=== PATIENT | female | born 1950 | race Caucasian/White ===

== ENCOUNTER 2017-09-16 21:07 | Emergency (ER) | payer MEDICARE, MEDICAID ==
[~2017-09-16] VITALS: Ht 157.5 cm; Wt 85.0 kg
[~2017-09-16 21:07] MED LIST: CLON0.1T PO; FURO20TA PO; LEVE500T8 PO; LIDO1PAD52 TOPICAL; OMEP20TA PO; POTA-163 PO; REME45TA PO; SERO200T PO; XARE20TA PO; ZOLO100T PO
[2017-09-16 21:13] VITALS: BP 130/95; PULSE 74; RESP 18; TEMP 98.2; O2SAT 95
[2017-09-16] MEDS ORDERED: MORPHINE SULFATE 4 MG/ML INJ IV PUSH ONE (21:15)
[2017-09-16] MEDS ORDERED: ONDANSETRON HCL 4 MG/2 ML VIAL IV PUSH ONE (21:15)
[2017-09-16] MEDS ORDERED: SODIUM CHLORIDE 0.9% FLUSH 10 ML FLUSH IV FLUSH PRN (21:15)
--- NOTE | 2017-09-16 21:24 | PD ---
HPI Chief Complaint: Fall Time Seen by Provider: 21:12 Travel History International Travel<30 days: No Contact w/Intl Traveler<30days: No Traveled to known affect area: No History of Present Illness HPI 67-year-old female with right AKA, brought in by EMS from home for evaluation of right arm pain and right leg pain after falling out of her wheelchair. The patient reports that she fell forward, landing onto the stump of her right as well as on an outstretched arm. She reports that she hit her head but did not lose consciousness. She was able to crawl to a phone and states she was on the floor for approximately 15 minutes. She is complaining of severe pain to her entire right upper extremity as well as right leg. She denies head neck or back pain. Pain is severe, constant, worse with movement and palpation. She is on Eliquis for protein S deficiency. 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) Cancer: Yes (minor resection ) Cardiac Catheterization: Yes (X2) Cardiovascular Problems: Yes High Cholesterol: Yes Chemotherapy: Yes Chest Pain: Yes Congestive Heart Failure: Yes COPD: Yes Cerebrovascular Accident: Yes (X 4) Coronary Artery Disease: Yes Diabetes: No Diminished Hearing: No Deep Vein Thrombosis: Yes (PE's, DVT- bilat legs and right arm) Endocrine: Yes Gastrointestinal Disorders: Yes (GASTROPARESIS) GERD: Yes Gout: Yes Genitourinary: No Headaches: No Hiatal Hernia: No Hypertension: Yes Immune Disorder: No Implanted Vascular Access Dvce: Yes (HX OF PORT) Kidney Stones: No Musculoskeletal: Yes (arthritis) Neurologic: Yes (4 CVA's and seizure) Psychiatric: Yes Reproductive: No Respiratory: Yes Integumentary: Yes (MRSA IN G TUBE) Immunizations Current: No Migraines: Yes Pancreatitis: Yes Radiation Therapy: No Renal Failure: No Seizures: No Sleep Apnea: No Thyroid Disease: Yes (hypo) Ulcer: Yes Tetanus Vaccination: > 5 Years Influenza Vaccination: No PNEUMOCCOCAL Vaccine (Year): 2008 ?: Not Menopausal: Yes : 6 Para: 3 Miscarriage: 3 Ovarian Cysts: Yes Past Surgical History Abdominal Surgery: Yes (COLON RESECTION, CHOLECYSTECTOMY, G TUBE PLACEMENT) AICD: No Appendectomy: Yes Arteriovenous Shunt: No Body Medical Devices: total knee replacement Cardiac Surgery: Yes Section: Yes (1) Cholecystectomy: Yes Coronary Stent: Yes Endocrine Surgery: No Eye Surgery: No Gynecologic Surgery: Yes () Hysterectomy: Yes Insulin Pump: No Joint Replacement: Yes (R ANKLE HARDWARE, R TOTAL KNEE May,) Neurologic Surgery: No Oral Surgery: Yes Pacemaker: No Thoracic Surgery: Yes Tonsillectomy: Yes (AND ADENOIDS) Other Surgery: Yes (IVC filter placement) Family History Family Myocardial Infarction: Yes Family Hypercholesterolemia: Yes Social History Alcohol Use: No Tobacco Use: No Substance Use: No Allergies-Medications (Allergen,Severity, Reaction): Coded Allergies: adhesive (Unverified Allergy, Severe, BLISTER, 09/16/17) amlodipine (Unverified Allergy, Severe, "EKG CHANGES", 09/16/17) amylase (Unverified Allergy, Severe, RASH/SHOB, 09/16/17) atorvastatin (Unverified Allergy, Severe, "STATIN DRUGS"-RHABDOMYLIASIS, 09/16/17) codeine (Unverified Allergy, Severe, RASH, 09/16/17) diatrizoate meglumine (Unverified Allergy, Severe, PT CODED, 09/16/17) diltiazem (Unverified Allergy, Severe, "EKG CHANGES", 09/16/17) enalaprilat (Unverified Allergy, Severe, 09/16/17) erythromycin base (Unverified Allergy, Severe, SVT, ARRHYTHMIAS, 09/16/17) gadobenic acid (Unverified Allergy, Severe, PT CODED, 09/16/17) gadodiamide (Unverified Allergy, Severe, PT CODED, 09/16/17) gadoteridol (Unverified Allergy, Severe, PT CODED, 09/16/17) iodine (Unverified Allergy, Severe, Anaphylaxis, 09/16/17) iodixanol (Unverified Allergy, Severe, PT CODED, 09/16/17) iohexol (Unverified Allergy, Severe, PT CODED, 09/16/17) isradipine (Unverified Allergy, Severe, "EKG CHANGES", 09/16/17) lipase (Unverified Allergy, Severe, RASH/SHOB, 09/16/17) metoclopramide (Unverified Allergy, Severe, TREMORS, 09/16/17) nalbuphine (Unverified Allergy, Severe, TREMORS, 09/16/17) nicardipine (Unverified Allergy, Severe, "EKG CHANGES", 09/16/17) nifedipine (Unverified Allergy, Severe, "EKG CHANGES", 09/16/17) nimodipine (Unverified Allergy, Severe, 09/16/17) potassium iodide (Unverified Allergy, Severe, Anaphylaxis, 09/16/17) povidone-iodine (Unverified Allergy, Severe, Anaphylaxis, 09/16/17) prochlorperazine (Unverified Allergy, Severe, SHAKES, 09/16/17) promethazine (Unverified Allergy, Severe, 09/16/17) PER PATIENT protease (Unverified Allergy, Severe, RASH/SHOB, 09/16/17) sodium iodide (Unverified Allergy, Severe, Anaphylaxis, 09/16/17) sodium iodide (Unverified Allergy, Severe, Anaphylaxis, 09/16/17) verapamil (Unverified Allergy, Severe, "EKG CHANGES", 09/16/17) *MDRO Multi-Drug Resistant Organism (Verified Adverse Reaction, Unknown, 09/16/17) MRSA (wound) - 04/07/06, 09/24/08, 01/05/12 MRSA PCR (nares) POSITIVE - 07/28/16 Uncoded Allergies: LICORICE (Allergy, Severe, Anaphylaxis, 12/13/11) PER PATIENT NUTRASWEET (Adverse Reaction, Severe, HEADACHES, 08/28/10) Reported Meds & Prescriptions Reported Meds & Active Scripts Active Zoloft (Sertraline HCl) 100 Mg Tab 100 Mg PO DAILY Remeron (Mirtazapine) 45 Mg Tab 45 Mg PO HS Seroquel (Quetiapine Fumarate) 200 Mg Tab 200 Mg PO HS Reported Xarelto (Rivaroxaban) 20 Mg Tab 20 Mg PO DAILY Potassium Chloride ER (Potassium Chloride) 20 Meq Tab 20 Meq PO DAILY Omeprazole 20 Mg Tab 20 Mg PO DAILY Lidocaine Patch 12 HR (Lidocaine) 5 % Patch 1 Patch TOPICAL DAILY PRN 30 Days Remove patch after 12 hours Levetiracetam 500 Mg Tab 500 Mg PO 3TABS BID Furosemide 20 Mg Tab 20 Mg PO DAILY Clonidine (Clonidine HCl) 0.1 Mg Tab 0.1 Mg PO DAILY PRN Review of Systems Except as stated in HPI: all other systems reviewed are Neg Physical Exam Narrative GENERAL: Well-developed, well-nourished, awake, mild to moderate distress secondary to pain SKIN: Focused skin assessment warm/dry. Ecchymosis to right leg stump, and various areas of ecchymosis to right upper extremity. HEAD: Atraumatic. Normocephalic. EYES: Pupils equal and round. No scleral icterus. No injection or drainage. ENT: Mucous membranes pink and moist. NECK: Trachea midline. No JVD. CARDIOVASCULAR: Regular rate and rhythm. No murmur appreciated. Bilateral distal radial pulses are brisk and equal. Normal capillary refill in upper and lower extremities. RESPIRATORY: No accessory muscle use. Clear to auscultation. Breath sounds equal bilaterally. GASTROINTESTINAL: Abdomen soft, non-tender, nondistended. MUSCULOSKELETAL: Obvious deformity to right distal radius with diffuse pain throughout the right arm. There are no other deformities. Limited range of motion in right wrist and upper extremity secondary to pain. All compartments in right upper extremity are supple. Bilateral clavicles are without step-off and without tenderness. NEUROLOGICAL: Awake and alert. No obvious cranial nerve deficits. Motor grossly within normal limits. Normal speech. Normal sensation and right upper extremity. PSYCHIATRIC: Appropriate mood and affect; insight and judgment normal. Data Data Last Documented VS Vital Signs Date Time Temp Pulse Resp B/P (MAP) Pulse Ox O2 Delivery O2 Flow Rate FiO2 09/16/17 21:15 95 Room Air 09/16/17 21:13 98.2 74 18 130/95 (107) Orders Orders Complete Blood Count With Diff (09/16/17 21:15) Comprehensive Metabolic Panel (09/16/17 21:15) Prothrombin Time / Inr (Pt) (09/16/17 21:15) Act Partial Throm Time (Ptt) (09/16/17 21:15) Iv Access Insert/Monitor (09/16/17 21:15) Ecg Monitoring (09/16/17 21:15) Oximetry (09/16/17 21:15) Sodium Chloride 0.9% Flush (Ns Flush) (09/16/17 21:15) Ct Brain W/O Iv Contrast(Rout) (09/16/17 ) Ct Cerv Spine W/O Contrast (09/16/17 ) Humerus (Min 2vws) (09/16/17 ) Forearm (2vws) (09/16/17 ) Hand, Complete ([id number]) (09/16/17 ) Femur (Ap & Lat/2vws) (09/16/17 ) Morphine Inj (Morphine Inj) (09/16/17 21:15) Ondansetron Inj (Zofran Inj) (09/16/17 21:15) Hydromorphone Pf Inj (Dilaudid Pf Inj) (09/16/17 23:00) Shoulder, Complete (>2vws) (09/16/17 ) Elbow, Complete (4 Vws) (09/16/17 ) Labs Laboratory Tests Test 09/16/17 22:20 White Blood Count 6.7 TH/MM3 Red Blood Count 4.36 MIL/MM3 Hemoglobin 12.7 GM/DL Hematocrit 38.6 % Mean Corpuscular Volume 88.5 FL Mean Corpuscular Hemoglobin 29.2 PG Mean Corpuscular Hemoglobin Concent 33.0 % Red Cell Distribution Width 15.0 % Platelet Count 231 TH/MM3 Mean Platelet Volume 8.2 FL Neutrophils (%) (Auto) 44.7 % Lymphocytes (%) (Auto) 38.3 % Monocytes (%) (Auto) 12.3 % Eosinophils (%) (Auto) 4.1 % Basophils (%) (Auto) 0.6 % Neutrophils # (Auto) 3.0 TH/MM3 Lymphocytes # (Auto) 2.6 TH/MM3 Monocytes # (Auto) 0.8 TH/MM3 Eosinophils # (Auto) 0.3 TH/MM3 Basophils # (Auto) 0.0 TH/MM3 CBC Comment DIFF FINAL Differential Comment Prothrombin Time 10.8 SEC Prothromb Time International Ratio 1.0 RATIO Activated Partial Thromboplast Time 27.0 SEC Blood Urea Nitrogen 6 MG/DL Creatinine 0.71 MG/DL Random Glucose 100 MG/DL Total Protein 6.9 GM/DL Albumin 3.5 GM/DL Calcium Level 8.8 MG/DL Alkaline Phosphatase 73 U/L Aspartate Amino Transf (AST/SGOT) 12 U/L Alanine Aminotransferase (ALT/SGPT) 15 U/L Total Bilirubin 0.2 MG/DL Sodium Level 141 MEQ/L Potassium Level 3.3 MEQ/L Chloride Level 106 MEQ/L Carbon Dioxide Level 24.0 MEQ/L Anion Gap 11 MEQ/L Estimat Glomerular Filtration Rate 82 ML/MIN MDM Medical Decision Making Medical Screen Exam Complete: Yes Emergency Medical Condition: Yes Differential Diagnosis Right wrist fracture, humeral fracture, intracranial trauma, cervical spine injury, right femur contusion versus fracture Narrative Course Vital signs show heart rate 74, blood pressure 130/95, pulse ox 95% on room air , oral temp of 98.2F. CBC is essentially unremarkable. CMP Coags are normal. Right femur x-ray: Amputation of distal right femur with mild periosteal reaction. No air in the soft tissue. No destructive abnormality. Right humerus x-ray: Normal exam for patient of this age. Right forearm x-ray: Normal exam for patient of this age. Right hand x-ray: Normal exam for patient of this age. CT head: Remote small infarct in the left parietal lobe. No acute findings. CT cervical spine: Mild degenerative anterolisthesis at C3 to C5. No acute fracture. No significant bony canal stenosis. The patient was made aware of all findings. She is still complaining of pain to her right arm. She points to her right proximal humerus were majority of her pain is. Her right forearm, wrist, and hand are nontender and she has normal range of motion in these areas. All compartments in her right upper extremity are supple, and the right upper extremity is neurovascularly intact. Bilateral clavicles are nontender without step-off. Right elbow x-ray: No acute fracture. Right shoulder x-ray: Degenerative change without fracture. The patient was made aware of all findings. She continues to complain of pain. She requests that I speak to her primary care physician Dr. Flores to try to have her admitted even though asked point to her that there is no indication for admission at this time. I spoke with Dr. Flores who believes that the patient may be on too many narcotics from pain management and that is why she falls at home. He would be happy to follow-up with her in the office, however there is no indication for admission at this time. I explained this to the patient and she tells me that she is no longer on any narcotic pain medications and only takes ibuprofen and Tylenol. Patient was made aware of all findings. She will be discharged home. She was informed on when to return to the emergency department. She is requesting a right arm sling. I told her she must take her arm out of the sling every couple of hours and fully range the arm to prevent a frozen shoulder. She verbalizes understanding and agreement with plan. Diagnosis Primary Impression: Fall Qualified Codes: W19.XXXA - Unspecified fall, initial encounter Additional Impression: Contusion of right arm Qualified Codes: S40.021A - Contusion of right upper arm, initial encounter Referrals: Primary Care Physician 3 days Additional Instructions: Follow-up with your primary care physician this week. Return to the emergency department for worsening symptoms or any other concerns. Scripts Oxycodone-Acetaminophen (Percocet) 5-325 mg Tab 1 TAB PO Q6H Y for PAIN, #6 TAB 0 Refills Prov: Bud Elliott MD 09/17/17 Disposition: 01 DISCHARGE HOME Condition: Stable Bud Elliott MD Sep 16, 2017 21:24
--- NOTE | 2017-09-16 22:03 | RADRPT ---
EXAM DATE/TIME: 09/16/2017 21:37 [facility] COMPARISON: No previous studies available for comparison. INDICATIONS : Right distal femur pain, fell MEDICAL HISTORY : Cerebrovascular disease. Hypertension SURGICAL HISTORY : Above the knee amputation ENCOUNTER: Initial ACUITY: 1 day PAIN SCORE: 3/10 LOCATION: Right Femur FINDINGS: There is previous amputation of the distal thigh. Bones are osteopenic. Mild periosteal reaction dist al femur. No aggressive bone destruction identified. CONCLUSION: 1. Amputation of distal right femur with mild periosteal reaction. No air in the soft tissues. Petros Bergman MD on September 16, 2017 at 21:59 Board Certified Radiologist. This report was verified electronically.
--- NOTE | 2017-09-16 22:07 | RADRPT ---
EXAM DATE/TIME: 09/16/2017 21:40 [facility] COMPARISON: No previous studies available for comparison. INDICATIONS : Right distal humerus pain, fell MEDICAL HISTORY : Cerebrovascular disease. Hypertension SURGICAL HISTORY : None. ENCOUNTER: Initial ACUITY: 1 day PAIN SCORE: 10/10 LOCATION: Right Humerus FINDINGS: Two view examination of the right humerus demonstrates no evidence of fracture or dislocation. Bony mineralization is normal. The soft tissue structures are intact. CONCLUSION: Normal examination for a patient of this age. Petros Bergman MD on September 16, 2017 at 22:02 Board Certified Radiologist. This report was verified electronically.
--- NOTE | 2017-09-16 22:09 | RADRPT ---
EXAM DATE/TIME: 09/16/2017 21:41 [facility] COMPARISON: No previous studies available for comparison. INDICATIONS : Right proximal forearm pain, fell MEDICAL HISTORY : Cerebrovascular disease. Hypertension SURGICAL HISTORY : None. ENCOUNTER: Initial ACUITY: 1 day PAIN SCORE: 10/10 LOCATION: Right forearm FINDINGS: Two view examination of the right forearm demonstrates no evidence of fracture or dislocation. Bony mineralization is normal. The soft tissue structures are intact. CONCLUSION: Normal examination for a patient of this age. Petros Bergman MD on September 16, 2017 at 22:06 Board Certified Radiologist. This report was verified electronically.
--- NOTE | 2017-09-16 22:12 | RADRPT ---
EXAM DATE/TIME: 09/16/2017 21:42 [facility] COMPARISON: No previous studies available for comparison. INDICATIONS : Evaluate right hand for trauma, fell MEDICAL HISTORY : Cerebrovascular disease. Hypertension SURGICAL HISTORY : None. ENCOUNTER: Initial ACUITY: 1 day PAIN SCORE: 0/10 LOCATION: Right Hand FINDINGS: Three view examination of the right hand demonstrates no soft tissue swelling, dislocation, or fractu re. The carpal bones appear intact. The interphalangeal and metacarpophalangeal joints are intact. Bony mineralization is normal. CONCLUSION: Normal examination for a patient of this age. Petros Bergman MD on September 16, 2017 at 22:07 Board Certified Radiologist. This report was verified electronically.
--- NOTE | 2017-09-16 22:30 | RADRPT ---
EXAM DATE/TIME: 09/16/2017 21:48 [facility] COMPARISON: CT BRAIN W/O CONTRAST, July 26, 2016, 18:02. INDICATIONS : Trauma, fall. RADIATION DOSE: 56.35 CTDIvol (mGy) MEDICAL HISTORY : Cardiovascular disease. Chronic obstructive pulmonary disease. Gastroparesis.Hypertension. Congestive heart failure. CVA. Pancreatitis. SURGICAL HISTORY : Cholecystectomy. Appendectomy.Colon resection.Hysterectomy. IVC filter. ENCOUNTER: Initial ACUITY: 1 day PAIN SCALE: 2/10 LOCATION: cranial TECHNIQUE: Multiple contiguous axial images were obtained of the head. Using automated exposure control and adj ustment of the mA and/or kV according to patient size, radiation dose was kept as low as reasonably a chievable to obtain optimal diagnostic quality images. DICOM format image data is available electro nically for review and comparison. FINDINGS: There is a remote infarct in the medial left parietal lobe.. No hydrocephalus. No abnormal extra-axia l fluid. Paranasal sinuses are clear. No recent infarct. CONCLUSION: 1. Remote small infarct left parietal lobe. No acute findings. Petros Bergman MD on September 16, 2017 at 22:22 Board Certified Radiologist. This report was verified electronically.
[2017-09-16 22:32] LABS: BASOPHIL % 0.6 % (0.0-2.0); EOSINOPHIL # 0.3 TH/MM3 (0-0.4); EOSINOPHIL % 4.1 % (0.0-4.0); HEMATOCRIT 38.6 % (35.0-46.0); HEMO FLAGS DIFF FINAL; LYMPH % 38.3 % (9.0-44.0); LYMPHOCYTE # 2.6 TH/MM3 (1.0-4.8); MEAN CELL VOLUME 88.5 FL (80.0-100.0); MEAN CORPUSCULAR HEMOGLOBIN 29.2 PG (27.0-34.0); MONO % 12.3 % (0.0-8.0); NEUT % 44.7 % (16.0-70.0); PLATELET COUNT 231 TH/MM3 (150-450); RED BLOOD COUNT 4.36 MIL/MM3 (4.00-5.30); WHITE BLOOD COUNT 6.7 TH/MM3 (4.0-11.0)
--- NOTE | 2017-09-16 22:44 | RADRPT ---
EXAM DATE/TIME: 09/16/2017 21:48 [facility] COMPARISON: No previous studies available for comparison. INDICATIONS : Trauma, fall. RADIATION DOSE: 41.29 CTDIvol (mGy) MEDICAL HISTORY : Cardiovascular disease. Pancreatitis. Chronic obstructive pulmonary disease.CVA. DVT. Hyperstension. SURGICAL HISTORY : Colon resection. Cholecystectomy.Appendectomy.Hysterectomy. IVC filter. ENCOUNTER: Initial ACUITY: 1 day PAIN SCALE: 3/10 LOCATION: Right neck TECHNIQUE: Volumetric scanning of the cervical spine was performed. Multiplanar reconstructions in the sagittal, coronal and oblique axial planes were performed. Using automated exposure control and adjustment o f the mA and/or kV according to patient size, radiation dose was kept as low as reasonably achievable to obtain optimal diagnostic quality images. DICOM format image data is available electronically f or review and comparison. FINDINGS: At C3-4 and C4-5 there is a mild grade 1 anterolisthesis. Facet arthropathy present. No acute fractur e. No significant bony canal stenosis. No prevertebral soft tissue swelling. CONCLUSION: 1. Mild degenerative anterolisthesis at C3-5. No acute fracture. No significant bony canal stenosis. Petros Bergman MD on September 16, 2017 at 22:38 Board Certified Radiologist. This report was verified electronically.
[2017-09-16 22:45] LABS: PROTHROMBIN TIME - PATIENT 10.8 SEC (9.8-11.6)
[2017-09-16 22:58] LABS: ALT (GPT) 15 U/L (10-53); ANION GAP 11 MEQ/L (5-15); AST (GOT) 12 U/L (15-37); BLOOD UREA NITROGEN 6 MG/DL (7-18); CHLORIDE 106 MEQ/L (98-107); GLOMERULAR FILTRATION RATE 82 ML/MIN (>89); POTASSIUM 3.3 MEQ/L (3.5-5.1); SODIUM (NA) 141 MEQ/L (136-145)
[2017-09-16] MEDS ORDERED: HYDROmorphone HCL PF 1 MG/ML VIAL IV PUSH ONE (23:00)
[2017-09-16 23:01] LABS: ALKALINE PHOSPHATASE 73 U/L (45-117); TOTAL BILIRUBIN ADULT 0.2 MG/DL (0.2-1.0)
--- NOTE | 2017-09-16 23:35 | RADRPT ---
EXAM DATE/TIME: 09/16/2017 23:20 [facility] COMPARISON: No previous studies available for comparison. INDICATIONS : Pt fell earlier tonight- Pain to right upper arm. MEDICAL HISTORY : Cerebrovascular disease. Hypertension SURGICAL HISTORY : None. ENCOUNTER: Subsequent ACUITY: 1 day PAIN SCORE: 6/10 LOCATION: Right Elbow FINDINGS: Multiple view examination of the right elbow demonstrates no soft tissue swelling, joint effusion, or fracture. The osseous structures are in normal alignment. Bony mineralization is normal. CONCLUSION: No acute fracture. Tashi Murdock MD on September 16, 2017 at 23:33 Board Certified Radiologist. This report was verified electronically.
--- NOTE | 2017-09-16 23:35 | RADRPT ---
EXAM DATE/TIME: 09/16/2017 23:16 [facility] COMPARISON: No previous studies available for comparison. INDICATIONS : Pt fell earlier tonight- Pain to right upper arm. MEDICAL HISTORY : Cerebrovascular disease. Hypertension SURGICAL HISTORY : None. ENCOUNTER: Subsequent ACUITY: 1 day PAIN SCORE: 6/10 LOCATION: Right Shoulder FINDINGS: Multiple view examination of the right shoulder demonstrates no evidence of fracture or dislocation. Degenerative changes.. Bony mineralization is normal. CONCLUSION: 1. Degenerative changes without fracture. Tashi Murdock MD on September 16, 2017 at 23:32 Board Certified Radiologist. This report was verified electronically.
[2017-09-17] MEDS ORDERED: PERC5TAB12 PO (00:13)
[2017-09-17 01:14] VITALS: BP 138/95; PULSE 79; RESP 18; O2SAT 96
[2017-09-17] MEDS ORDERED: IBUPROFEN 800 MG TAB PO ONE ×2 (03:30→08:00)
[2017-09-17] MEDS ORDERED: oxyCODONE/ACETAMINOPHEN 5 MG/325 MG TAB PO ONE (05:00)
[2017-09-17 07:45] VITALS: BP 143/69; PULSE 61; RESP 16; O2SAT 95
== END 2017-09-17 11:03 | disposition home or self-care (01) ==
LOC: NEPE 21:07 → NEPD 09-17 11:03
DX: S40.021A Contusion of right upper arm, initial encounter (principal); M79.604 Pain in right leg; D68.59 Other primary thrombophilia; D64.9 Anemia, unspecified; I11.0 Hypertensive heart disease with heart failure; I50.9 Heart failure, unspecified; J44.9 Chronic obstructive pulmonary disease, unspecified; W19.XXXA Unspecified fall, initial encounter; Z89.611 Acquired absence of right leg above knee
CPT/HCPCS: 70450; 72125; 73030; 73060; 73080; 73090; 73130; 73552; 80053; 85025; 85610; 85730; 96374; 96375; 99285; J1170; J2270; J2405

== ENCOUNTER 2017-12-20 20:03 | Emergency (ER) | payer MEDICARE, MEDICAID ==
[~2017-12-20 20:03] MED LIST changes: +CYAN50LO; +GABA100C4 PO; +LEVE250 PO; +LEVO25TA4 PO; +METO1TAB42 PO; -OMEP20TA PO; +OMEP20TA93 PO; +PERC5TAB12 PO; +PRED10 PO; +PROT40TA PO; +SERO100T PO; +TRAZ100T10 PO; +VITA1000 PO; +VITA1CAP7; +VITA250C3 CHEW; +ZOLO50TA PO
[2017-12-20 20:29] VITALS: BP 171/77; PULSE 76; RESP 16; TEMP 99.2; O2SAT 97
[2017-12-20] MEDS ORDERED: PHEN100C PO (20:47)
[2017-12-20] MEDS ORDERED: IBUP200T47 PO (20:47)
[2017-12-20] MEDS ORDERED: APIX2.5T PO (20:52)
[2017-12-20] MEDS ORDERED: CLON0.1T PO (20:52)
[2017-12-20] MEDS ORDERED: METO25TA3 PO (20:52)
[2017-12-20] MEDS ORDERED: OXCA300T PO (20:52)
[2017-12-20] MEDS ORDERED: ZOFR4TAB3 SL (20:52)
[2017-12-20] MEDS ORDERED: LISI-515 PO (20:52)
[2017-12-20] MEDS ORDERED: ASCO500T PO (20:57)
[2017-12-20] MEDS ORDERED: TYLE325T PO (20:57)
[2017-12-20] MEDS ORDERED: GABA600T PO (20:57)
[2017-12-20] MEDS ORDERED: FERR325T18 PO (20:57)
[2017-12-20] MEDS ORDERED: DICL1GEL7 TOPICAL (20:57)
[2017-12-20] MEDS ORDERED: LIDO5%T TOPICAL (20:59)
[2017-12-20] MEDS ORDERED: LEVO25TA4 PO (20:59)
[2017-12-20] MEDS ORDERED: PROT40TA PO (21:15)
[2017-12-20] MEDS ORDERED: POLY17S PO (21:15)
[2017-12-20] MEDS ORDERED: MILKSUS PO (21:15)
[2017-12-20] MEDS ORDERED: MELA5 PO (21:15)
[2017-12-20] MEDS ORDERED: ONDANSETRON HCL 4 MG/2 ML VIAL IV PUSH ONE (22:30)
[2017-12-20] MEDS ORDERED: SODIUM CHLORIDE 0.9% FLUSH 10 ML FLUSH IV FLUSH PRN (22:30)
[2017-12-20] MEDS ORDERED: MORPHINE SULFATE 4 MG/ML INJ IV PUSH ONE (22:30)
[2017-12-20 23:03] LABS: AUTOMATED NEUTROPHIL # 7.9 TH/MM3 (1.8-7.7); BASOPHIL # 0.1 TH/MM3 (0-0.2); BASOPHIL % 0.6 % (0.0-2.0); EOSINOPHIL # 0.1 TH/MM3 (0-0.4); EOSINOPHIL % 0.5 % (0.0-4.0); HEMATOCRIT 42.1 % (35.0-46.0); HEMOGLOBIN 14.4 GM/DL (11.6-15.3); LYMPH % 20.2 % (9.0-44.0); LYMPHOCYTE # 2.2 TH/MM3 (1.0-4.8); MEAN CELL VOLUME 85.3 FL (80.0-100.0); MEAN CORPUSCULAR HEMOGLOBIN 29.1 PG (27.0-34.0); MEAN CORPUSCULAR HGB CONC 34.1 % (32.0-36.0); MEAN PLATELET VOLUME 7.6 FL (7.0-11.0); MONO % 6.3 % (0.0-8.0); MONOCYTE # 0.7 TH/MM3 (0-0.9); NEUT % 72.4 % (16.0-70.0); PLATELET COUNT 355 TH/MM3 (150-450); RED BLOOD COUNT 4.93 MIL/MM3 (4.00-5.30); RED CELL DISTRIBUTION WIDTH 13.5 % (11.6-17.2); WHITE BLOOD COUNT 10.9 TH/MM3 (4.0-11.0)
[2017-12-20 23:05] VITALS: BP 180/90; PULSE 88; RESP 18; TEMP 97.8; O2SAT 97
[2017-12-20 23:14] LABS: PROTHROMBIN TIME - PATIENT 10.3 SEC (9.8-11.6)
[2017-12-20 23:21] LABS: ALT (GPT) 16 U/L (10-53); AST (GOT) 26 U/L (15-37); BICARBONATE 24.4 MEQ/L (21.0-32.0); BLOOD UREA NITROGEN 8 MG/DL (7-18); CALCIUM 8.9 MG/DL (8.5-10.1); CHLORIDE 97 MEQ/L (98-107); CREATININE 0.81 MG/DL (0.50-1.00); GLOMERULAR FILTRATION RATE 71 ML/MIN (>89); GLUCOSE,RANDOM 101 MG/DL (74-106); LIPASE 198 U/L (73-393); SODIUM (NA) 129 MEQ/L (136-145)
[2017-12-20 23:22] LABS: ALKALINE PHOSPHATASE 113 U/L (45-117); TOTAL BILIRUBIN ADULT 0.5 MG/DL (0.2-1.0); TOTAL PROTEIN 8.4 GM/DL (6.4-8.2)
--- NOTE | 2017-12-20 23:51 | RADRPT ---
EXAM DATE/TIME: 12/20/2017 23:29 [facility] COMPARISON: No previous studies available for comparison. INDICATIONS : Abdominal pain with nausea. ORAL CONTRAST: No oral contrast ingested. RADIATION DOSE: 7.97 CTDIvol (mGy) MEDICAL HISTORY : Hypertension. Pancreatitis. Gastroesophageal reflux disease. SURGICAL HISTORY : Appendectomy. Cholecystectomy.Hysterectomy.Colon resection. ENCOUNTER: Initial ACUITY: 1 day PAIN SCALE: 5/10 LOCATION: abdomen TECHNIQUE: Volumetric scanning of the abdomen and pelvis was performed. Using automated exposure control and ad justment of the mA and/or kV according to patient size, radiation dose was kept as low as reasonably achievable to obtain optimal diagnostic quality images. DICOM format image data is available electro nically for review and comparison. FINDINGS: LOWER CHEST: The visualized lower lungs are clear. Coronary artery calcifications are seen. There is elevation of the right hemidiaphragm. LIVER: Homogeneous density without lesion. There is no dilation of the biliary tree. The patient is status post cholecystectomy. SPLEEN: Normal size without lesion. PANCREAS: Within normal limits. KIDNEYS: Normal in size and shape. There is no mass, stone, or hydronephrosis. ADRENAL GLANDS: Within normal limits. VASCULAR: There is no aortic aneurysm. There is an IVC filter in place. The left external iliac vein appears ob literated. There are superficial venous collaterals seen at the left abdomen and pelvis. BOWEL/MESENTERY: The stomach, small bowel, and colon demonstrate no acute abnormality. There is no free intraperitone al air or fluid. ABDOMINAL WALL: Within normal limits. RETROPERITONEUM: There is no lymphadenopathy. BLADDER: No wall thickening or mass. REPRODUCTIVE: The patient is status post hysterectomy. INGUINAL: There is no lymphadenopathy or hernia. MUSCULOSKELETAL: There is degenerative change in the lower lumbar spine. There are calcifications seen in the gluteal regions. CONCLUSION: No acute abnormality seen. The cause of the patient's symptoms is not seen. Cosmo Edwards MD on December 20, 2017 at 23:42 Board Certified Radiologist. This report was verified electronically.
[2017-12-21] MEDS ORDERED: SODIUM CHLOR 0.9% 1000 ML INJ 1,000 ML IV ONE ×2 (00:30→02:00)
[2017-12-21 01:06] VITALS: BP 155/73; PULSE 74; RESP 20; O2SAT 98
[2017-12-21] MEDS ORDERED: PANTOPRAZOLE SODIUM 40 MG VIAL IV PUSH ONE (02:00)
[2017-12-21] MEDS ORDERED: ONDANSETRON HCL 4 MG/2 ML VIAL IV PUSH ONE ×2 (02:00→07:30)
[2017-12-21] MEDS ORDERED: MORPHINE SULFATE 2 MG/ML INJ IV PUSH ONE ×2 (02:00→07:30)
[2017-12-21] MEDS ORDERED: levETIRAcetam 500 MG TAB PO ONE (04:00)
[2017-12-21] MEDS ORDERED: PHENYTOIN SODIUM 100 MG CAP PO ONE (04:00)
[2017-12-21 05:06] VITALS: BP 155/74; PULSE 78; RESP 20; O2SAT 97
--- NOTE | 2017-12-21 06:40 | PD ---
HPI . GI complaint Chief Complaint: GI Complaint Time Seen by Provider: 22:18 Travel History International Travel<30 days: No Contact w/Intl Traveler<30days: No Traveled to known affect area: No History of Present Illness HPI 67-year-old female very poor strength is complains of diffuse abdominal pain. He cannot characterize further. Patient has nausea and intermittent vomiting, no coffee-ground emesis by history. PFSH Past Medical History Narrative Medical Past medical history reviewed Hx Anticoagulant Therapy: Yes (XARELTO-OUT X 10 DAYS) Anemia: Yes Arthritis: Yes Asthma: Yes Autoimmune Disease: No Blood Disorders: No Anxiety: Yes Depression: Yes Heart Rhythm Problems: Yes (SVT ) Cancer: Yes Cardiac Catheterization: Yes (X2) Cardiovascular Problems: Yes High Cholesterol: Yes Chemotherapy: Yes Chest Pain: Yes Congestive Heart Failure: Yes COPD: Yes Cerebrovascular Accident: Yes (X 4) Coronary Artery Disease: Yes Diabetes: No Diminished Hearing: No Deep Vein Thrombosis: Yes (PE, DVT) Endocrine: Yes Gastrointestinal Disorders: Yes (GASTROPARESIS) GERD: Yes Gout: Yes Genitourinary: No Headaches: No Hiatal Hernia: No Hypertension: Yes Immune Disorder: No Implanted Vascular Access Dvce: Yes (HX OF PORT) Kidney Stones: No Musculoskeletal: Yes (arthritis) Neurologic: Yes (4 CVA's and seizure) Psychiatric: Yes Reproductive: No Respiratory: Yes Integumentary: Yes (MRSA IN G TUBE) Immunizations Current: No Migraines: Yes Pancreatitis: Yes Radiation Therapy: No Renal Failure: No Seizures: No Sleep Apnea: No Thyroid Disease: Yes (HYPO) Ulcer: Yes PNEUMOCCOCAL Vaccine (Year): 2008 ?: Not Menopausal: Yes : 6 Para: 3 Miscarriage: 3 Ovarian Cysts: Yes Past Surgical History Abdominal Surgery: Yes (COLON RESECTION, G TUBE PLACEMENT) AICD: No Appendectomy: Yes Arteriovenous Shunt: No Body Medical Devices: total knee replacement Cardiac Surgery: Yes Section: Yes (1) Cholecystectomy: Yes Coronary Stent: Yes Endocrine Surgery: No Eye Surgery: No Gynecologic Surgery: Yes () Hysterectomy: Yes Insulin Pump: No Joint Replacement: Yes (R ANKLE, R TOTAL KNEE May,) Neurologic Surgery: No Oral Surgery: Yes Pacemaker: No Thoracic Surgery: Yes Tonsillectomy: Yes (T&A) Other Surgery: Yes (IVC filter ) Family History Family Hypercholesterolemia: Yes Social History Alcohol Use: No Tobacco Use: No Substance Use: No Allergies-Medications (Allergen,Severity, Reaction): Coded Allergies: adhesive (Unverified Allergy, Severe, BLISTER, 12/20/17) amlodipine (Unverified Allergy, Severe, "EKG CHANGES", 12/20/17) amylase (Unverified Allergy, Severe, RASH/SHOB, 12/20/17) atorvastatin (Unverified Allergy, Severe, "STATIN DRUGS"-RHABDOMYLIASIS, ) codeine (Unverified Allergy, Severe, RASH, 12/20/17) diatrizoate meglumine (Unverified Allergy, Severe, PT CODED, 12/20/17) diltiazem (Unverified Allergy, Severe, "EKG CHANGES", 12/20/17) enalaprilat (Unverified Allergy, Severe, 12/20/17) erythromycin base (Unverified Allergy, Severe, SVT, ARRHYTHMIAS, 12/20/17) gadobenic acid (Unverified Allergy, Severe, PT CODED, 12/20/17) gadodiamide (Unverified Allergy, Severe, PT CODED, 12/20/17) gadoteridol (Unverified Allergy, Severe, PT CODED, 12/20/17) iodine (Unverified Allergy, Severe, Anaphylaxis, 12/20/17) iodixanol (Unverified Allergy, Severe, PT CODED, 12/20/17) iohexol (Unverified Allergy, Severe, PT CODED, 12/20/17) isradipine (Unverified Allergy, Severe, "EKG CHANGES", 12/20/17) lipase (Unverified Allergy, Severe, RASH/SHOB, 12/20/17) metoclopramide (Unverified Allergy, Severe, TREMORS, 12/20/17) nalbuphine (Unverified Allergy, Severe, TREMORS, 12/20/17) nicardipine (Unverified Allergy, Severe, "EKG CHANGES", 12/20/17) nifedipine (Unverified Allergy, Severe, "EKG CHANGES", 12/20/17) nimodipine (Unverified Allergy, Severe, 12/20/17) potassium iodide (Unverified Allergy, Severe, Anaphylaxis, 12/20/17) povidone-iodine (Unverified Allergy, Severe, Anaphylaxis, 12/20/17) prochlorperazine (Unverified Allergy, Severe, SHAKES, 12/20/17) promethazine (Unverified Allergy, Severe, 12/20/17) PER PATIENT protease (Unverified Allergy, Severe, RASH/SHOB, 12/20/17) sodium iodide (Unverified Allergy, Severe, Anaphylaxis, 12/20/17) sodium iodide (Unverified Allergy, Severe, Anaphylaxis, 12/20/17) verapamil (Unverified Allergy, Severe, "EKG CHANGES", 12/20/17) *MDRO Multi-Drug Resistant Organism (Verified Adverse Reaction, Unknown, 09/16/17) MRSA (wound) - 04/07/06, 09/24/08, 01/05/12 MRSA PCR (nares) POSITIVE - 07/28/16 Uncoded Allergies: LICORICE (Allergy, Severe, Anaphylaxis, 12/13/11) PER PATIENT NUTRASWEET (Adverse Reaction, Severe, HEADACHES, 08/28/10) Reported Meds & Prescriptions Reported Meds & Active Scripts Active Percocet (Oxycodone-Acetaminophen) 5-325 mg Tab 1 Tab PO Q6H PRN Zoloft (Sertraline HCl) 100 Mg Tab 100 Mg PO DAILY Reported Polyethylene Glycol 3350 Powder (Polyethylene Glycol) 17 Gram Pow 17 Gm PO DAILY Protonix (Pantoprazole Sodium) 40 Mg Tab 40 Mg PO DAILY Melatonin 5 Mg Tab 5 Mg PO HS PRN Milk of Magnesia Liq (Magnesium Hydroxide) 400 Mg/5 Ml Susp 30 Ml PO DAILY PRN Lidocaine Topical (Lidocaine HCl) 5 % Oint 1 Applic TOPICAL DAILY PRN Levothyroxine (Levothyroxine Sodium) 25 Mcg Tab 25 Mcg PO DAILY Gabapentin 600 Mg Tab 600 Mg PO QID Ferrous Sulfate 325 Mg (65 Mg Iron) Tablet 325 Mg PO DAILY Diclofenac Topical 1% Gel 1 Applic TOPICAL QID Ascorbic Acid 500 Mg Tab 500 Mg PO DAILY Tylenol (Acetaminophen) 325 Mg Tab 325 Mg PO Q4H PRN Clonidine (Clonidine HCl) 0.1 Mg Tab 0.1 Mg PO BID Eliquis (Apixaban) 2.5 Mg Tab 2.5 Mg PO BID Oxcarbazepine 300 Mg Tab 450 Mg PO BID Zofran Odt (Ondansetron Odt) 4 Mg Tab 4 Mg SL Q8HR PRN Metoprolol Tartrate 25 Mg Tab 25 Mg PO BID Lisinopril 20 Mg Tab 20 Mg PO DAILY Ibuprofen 200 Mg Tab 200 Mg PO Q6H PRN Phenytoin Extended 100 Mg Cap 150 Mg PO TID Levetiracetam 500 Mg Tab 500 Mg PO 3TABS BID Narrative Medication Extensive allergy list, and medications reviewed Review of Systems ROS Limitations: Poor Historian Except as stated in HPI: all other systems reviewed are Neg Gastrointestinal: Positive: Nausea, Vomiting, Abdominal Pain, No: Diarrhea Physical Exam Narrative GENERAL: Awake and alert, confused, no acute distress. Vital signs afebrile normal and stable. Difficult exam secondary to patient's baseline confusion SKIN: Warm and dry. Color is normal no diaphoresis cyanosis or pallor HEAD: Atraumatic. Normocephalic. EYES: Pupils equal and round. No scleral icterus. No injection or drainage. ENT: No nasal bleeding or discharge. Mucous membranes pink and moist. NECK: Trachea midline. No JVD. Supple nontender full range of motion CARDIOVASCULAR: Regular rate and rhythm. S1-S2 no murmurs rubs or gallops RESPIRATORY: No accessory muscle use. Clear to auscultation. Breath sounds equal bilaterally. GASTROINTESTINAL: Abdomen soft, tender with voluntary guarding diffusely, nondistended. Hepatic and splenic margins not palpable. MUSCULOSKELETAL: Extremities without clubbing, cyanosis, or edema. No obvious deformities. NEUROLOGICAL: Awake and alert. No obvious deficits PSYCHIATRIC: Appropriate mood and affect; insight and judgment normal. Data Data Last Documented VS Vital Signs Date Time Temp Pulse Resp B/P (MAP) Pulse Ox O2 Delivery O2 Flow Rate FiO2 12/21/17 05:06 78 20 155/74 (101) 97 Room Air 12/20/17 23:05 97.8 Orders Orders Complete Blood Count With Diff (12/20/17 22:27) Comprehensive Metabolic Panel (12/20/17 22:27) Lipase (12/20/17 22:27) Lactic Acid (12/20/17 22:27) Prothrombin Time / Inr (Pt) (12/20/17 22:27) Act Partial Throm Time (Ptt) (12/20/17 22:27) Urinalysis - C+S If Indicated (12/20/17 22:27) Iv Access Insert/Monitor (12/20/17 22:27) Ecg Monitoring (12/20/17 22:27) Oximetry (12/20/17 22:27) Morphine Inj (Morphine Inj) (12/20/17 22:30) Sodium Chloride 0.9% Flush (Ns Flush) (12/20/17 22:30) Electrocardiogram (12/20/17 22:27) Ondansetron Inj (Zofran Inj) (12/20/17 22:30) Ct Abd/Pel W/O Iv Contrast (12/20/17 ) Sodium Chlor 0.9% 1000 Ml Inj (Ns 1000 M (12/21/17 00:30) Ondansetron Inj (Zofran Inj) (12/21/17 02:00) Sodium Chlor 0.9% 1000 Ml Inj (Ns 1000 M (12/21/17 02:00) Pantoprazole Inj (Protonix Inj) (12/21/17 02:00) Morphine Inj (Morphine Inj) (12/21/17 02:00) Phenytoin (Dilantin) (12/21/17 04:00) Levetiracetam (Keppra) (12/21/17 04:00) Labs Laboratory Tests Test 12/20/17 22:14 12/20/17 22:45 White Blood Count 10.9 TH/MM3 Red Blood Count 4.93 MIL/MM3 Hemoglobin 14.4 GM/DL Hematocrit 42.1 % Mean Corpuscular Volume 85.3 FL Mean Corpuscular Hemoglobin 29.1 PG Mean Corpuscular Hemoglobin Concent 34.1 % Red Cell Distribution Width 13.5 % Platelet Count 355 TH/MM3 Mean Platelet Volume 7.6 FL Neutrophils (%) (Auto) 72.4 % Lymphocytes (%) (Auto) 20.2 % Monocytes (%) (Auto) 6.3 % Eosinophils (%) (Auto) 0.5 % Basophils (%) (Auto) 0.6 % Neutrophils # (Auto) 7.9 TH/MM3 Lymphocytes # (Auto) 2.2 TH/MM3 Monocytes # (Auto) 0.7 TH/MM3 Eosinophils # (Auto) 0.1 TH/MM3 Basophils # (Auto) 0.1 TH/MM3 CBC Comment DIFF FINAL Differential Comment Prothrombin Time 10.3 SEC Prothromb Time International Ratio 1.0 RATIO Activated Partial Thromboplast Time 24.7 SEC Blood Urea Nitrogen 8 MG/DL Creatinine 0.81 MG/DL Random Glucose 101 MG/DL Total Protein 8.4 GM/DL Albumin 4.0 GM/DL Calcium Level 8.9 MG/DL Alkaline Phosphatase 113 U/L Aspartate Amino Transf (AST/SGOT) 26 U/L Alanine Aminotransferase (ALT/SGPT) 16 U/L Total Bilirubin 0.5 MG/DL Sodium Level 129 MEQ/L Potassium Level 5.1 MEQ/L Chloride Level 97 MEQ/L Carbon Dioxide Level 24.4 MEQ/L Anion Gap 8 MEQ/L Estimat Glomerular Filtration Rate 71 ML/MIN Lipase 198 U/L Lactic Acid Level 1.3 mmol/L [place] Medical Decision Making Medical Screen Exam Complete: Yes Emergency Medical Condition: Yes Medical Record Reviewed: Yes Differential Diagnosis Abdominal pain Narrative Course Extremity difficult historian. Objective criteria obtained. Patient's laboratory examinations reviewed, no significant abnormalities CT abdomen and pelvis reviewed, no acute intra-abdominal pathologies as per radiology Patient given pain medications and antibiotics with IV fluids and had improvement of patient's symptoms. Care plan developed, DC if tolerating by mouth. Diagnosis Primary Impression: Abdominal pain Qualified Codes: R10.84 - Generalized abdominal pain Patient Instructions: Abdominal Pain (ED), General Instructions Additional Instructions: Follow-up with your doctor. Diet as tolerated, care and medical regimen as per usual. Follow-up with your doctor. Return for worsening Disposition: 01 DISCHARGE HOME Condition: Stable Carl Fisher MD Dec 21, 2017 06:40
[2017-12-21] MEDS ORDERED: TRAM50 PO (07:04)
[2017-12-21] MEDS ORDERED: ZOFR4TAB3 SL (07:04)
--- NOTE | 2017-12-21 07:34 | PD ---
Physical Exam Narrative This patient was evaluated by previous provider and is discharged and awaiting transport. I was informed by his nurse that previous provider promised her one more dose of pain and nausea medication before she goes. She said she was told she would get 1 more dose of what she has been getting prior to discharge. Pt has been getting morphine 2mg and zofran. Last dose was 2am. Will give one more morphine 2mg and 4mg zofran while she awaits transportation. Pt is well appearing. Labs reviewed, no leukocytosis. Normal lactic acid. Mild hyponatremia, pt given NS IVF x2. CTa/p showed no acute abnormality. Vital signs stable. Data Data Last Documented VS Vital Signs Date Time Temp Pulse Resp B/P (MAP) Pulse Ox O2 Delivery O2 Flow Rate FiO2 12/21/17 09:30 12/21/17 07:48 81 18 95 Room Air 12/20/17 23:05 97.8 Orders Orders Complete Blood Count With Diff (12/20/17 22:27) Comprehensive Metabolic Panel (12/20/17 22:27) Lipase (12/20/17 22:27) Lactic Acid (12/20/17 22:27) Prothrombin Time / Inr (Pt) (12/20/17 22:27) Act Partial Throm Time (Ptt) (12/20/17 22:27) Urinalysis - C+S If Indicated (12/20/17 22:27) Iv Access Insert/Monitor (12/20/17 22:27) Ecg Monitoring (12/20/17 22:27) Oximetry (12/20/17 22:27) Morphine Inj (Morphine Inj) (12/20/17 22:30) Sodium Chloride 0.9% Flush (Ns Flush) (12/20/17 22:30) Electrocardiogram (12/20/17 22:27) Ondansetron Inj (Zofran Inj) (12/20/17 22:30) Ct Abd/Pel W/O Iv Contrast (12/20/17 ) Sodium Chlor 0.9% 1000 Ml Inj (Ns 1000 M (12/21/17 00:30) Ondansetron Inj (Zofran Inj) (12/21/17 02:00) Sodium Chlor 0.9% 1000 Ml Inj (Ns 1000 M (12/21/17 02:00) Pantoprazole Inj (Protonix Inj) (12/21/17 02:00) Morphine Inj (Morphine Inj) (12/21/17 02:00) Phenytoin (Dilantin) (12/21/17 04:00) Levetiracetam (Keppra) (12/21/17 04:00) Ed Discharge Order (12/21/17 06:40) Morphine Inj (Morphine Inj) (12/21/17 07:30) Ondansetron Inj (Zofran Inj) (12/21/17 07:30) Labs Laboratory Tests Test 12/20/17 22:14 12/20/17 22:45 White Blood Count 10.9 TH/MM3 Red Blood Count 4.93 MIL/MM3 Hemoglobin 14.4 GM/DL Hematocrit 42.1 % Mean Corpuscular Volume 85.3 FL Mean Corpuscular Hemoglobin 29.1 PG Mean Corpuscular Hemoglobin Concent 34.1 % Red Cell Distribution Width 13.5 % Platelet Count 355 TH/MM3 Mean Platelet Volume 7.6 FL Neutrophils (%) (Auto) 72.4 % Lymphocytes (%) (Auto) 20.2 % Monocytes (%) (Auto) 6.3 % Eosinophils (%) (Auto) 0.5 % Basophils (%) (Auto) 0.6 % Neutrophils # (Auto) 7.9 TH/MM3 Lymphocytes # (Auto) 2.2 TH/MM3 Monocytes # (Auto) 0.7 TH/MM3 Eosinophils # (Auto) 0.1 TH/MM3 Basophils # (Auto) 0.1 TH/MM3 CBC Comment DIFF FINAL Differential Comment Prothrombin Time 10.3 SEC Prothromb Time International Ratio 1.0 RATIO Activated Partial Thromboplast Time 24.7 SEC Blood Urea Nitrogen 8 MG/DL Creatinine 0.81 MG/DL Random Glucose 101 MG/DL Total Protein 8.4 GM/DL Albumin 4.0 GM/DL Calcium Level 8.9 MG/DL Alkaline Phosphatase 113 U/L Aspartate Amino Transf (AST/SGOT) 26 U/L Alanine Aminotransferase (ALT/SGPT) 16 U/L Total Bilirubin 0.5 MG/DL Sodium Level 129 MEQ/L Potassium Level 5.1 MEQ/L Chloride Level 97 MEQ/L Carbon Dioxide Level 24.4 MEQ/L Anion Gap 8 MEQ/L Estimat Glomerular Filtration Rate 71 ML/MIN Lipase 198 U/L Lactic Acid Level 1.3 mmol/L MDM Supervised Visit with MIKEL: No Diagnosis Primary Impression: Abdominal pain Qualified Codes: R10.84 - Generalized abdominal pain Patient Instructions: General Instructions, Abdominal Pain (ED) Additional Instruction: Follow-up with your doctor. Diet as tolerated, care and medical regimen as per usual. Follow-up with your doctor. Return for worsening Scripts Ondansetron Odt (Zofran Odt) 4 Mg Tab 4 MG SL Q8HR Y for Nausea/Vomiting, #20 TAB 0 Refills Prov: Carl Fisher MD 12/21/17 Tramadol (Ultram) 50 Mg Tab 50 MG PO Q8H Y for PAIN, #10 TAB 0 Refills Prov: Carl Fisher MD 12/21/17 Disposition: 01 DISCHARGE HOME Condition: Stable Manisha Sheikh Dec 21, 2017 07:34
[2017-12-21 07:48] VITALS: BP 172/88; PULSE 81; RESP 18; O2SAT 95
--- NOTE | 2017-12-21 08:40 | EKG ---
Date Performed: 12/21/2017 Time Performed: 00:06:48 PTAGE: 67 years EKG: Sinus rhythm NONDIAGNOSTIC INFERIOR Q WAVES ABNORMAL ECG PREVIOUS TRACING : 07/26/2016 16.21 No change from previous tracing noted. DOCTOR: Eder Barraza Interpretating Date/Time 12/21/2017 08:39:09
== END 2017-12-21 09:29 | disposition home or self-care (01) ==
LOC: NEPE 20:03
DX: K85.90 Acute pancreatitis without necrosis or infection, unspecified (principal); E87.1 Hypo-osmolality and hyponatremia; R94.31 Abnormal electrocardiogram [ECG] [EKG]; E78.00 Pure hypercholesterolemia, unspecified; F32.9 Major depressive disorder, single episode, unspecified; I47.1 Supraventricular tachycardia; I25.10 Atherosclerotic heart disease of native coronary artery without angina pectoris; I11.0 Hypertensive heart disease with heart failure; I50.9 Heart failure, unspecified; J44.9 Chronic obstructive pulmonary disease, unspecified; K21.9 Gastro-esophageal reflux disease without esophagitis; E03.9 Hypothyroidism, unspecified; Z86.73 Personal history of transient ischemic attack (TIA), and cerebral infarction without residual deficits; Z86.718 Personal history of other venous thrombosis and embolism; Z95.5 Presence of coronary angioplasty implant and graft
CPT/HCPCS: 74176; 80053; 83605; 83690; 85025; 85610; 85730; 93005; 96361; 96374; 96375; 96376; 99285; C9113; J2270; J2405; J7030

== ENCOUNTER 2018-01-30 17:05 | Inpatient (IN) | payer MEDICARE, MEDICAID, OTHER ==
[~2018-01-30] VITALS: Ht 157.5 cm; Wt 74.0 kg
[~2018-01-30 17:05] MED LIST changes: +APIX2.5T PO; +ASCO500T PO; +DICL1GEL7 TOPICAL; +FERR325T18 PO; -FURO20TA PO; +GABA600T PO; +IBUP200T47 PO; -LIDO1PAD52 TOPICAL; +LIDO5%T TOPICAL; +LISI-515 PO; +MELA5 PO; +METO25TA3 PO; +MILKSUS PO; -OMEP20TA93 PO; +OXCA300T PO; +PHEN100C PO; +POLY17S PO; -POTA-163 PO; -REME45TA PO; -SERO200T PO; +TRAM50 PO; +TYLE325T PO; -XARE20TA PO; +ZOFR4TAB3 SL
[2018-01-30 18:11] VITALS: BP 172/89; PULSE 83; RESP 20; TEMP 97.9; O2SAT 96
[2018-01-30 18:34] LABS: AUTOMATED NEUTROPHIL # 4.5 TH/MM3 (1.8-7.7); BASOPHIL % 0.5 % (0.0-2.0); EOSINOPHIL # 0.3 TH/MM3 (0-0.4); EOSINOPHIL % 3.1 % (0.0-4.0); HEMATOCRIT 40.3 % (35.0-46.0); HEMOGLOBIN 13.4 GM/DL (11.6-15.3); LYMPH % 30.5 % (9.0-44.0); LYMPHOCYTE # 2.5 TH/MM3 (1.0-4.8); MEAN CELL VOLUME 85.1 FL (80.0-100.0); MEAN CORPUSCULAR HEMOGLOBIN 28.3 PG (27.0-34.0); MEAN CORPUSCULAR HGB CONC 33.3 % (32.0-36.0); MEAN PLATELET VOLUME 7.6 FL (7.0-11.0); MONO % 10.6 % (0.0-8.0); MONOCYTE # 0.9 TH/MM3 (0-0.9); NEUT % 55.3 % (16.0-70.0); PLATELET COUNT 258 TH/MM3 (150-450); RED BLOOD COUNT 4.73 MIL/MM3 (4.00-5.30); RED CELL DISTRIBUTION WIDTH 13.5 % (11.6-17.2); WHITE BLOOD COUNT 8.1 TH/MM3 (4.0-11.0)
[2018-01-30 18:52] LABS: ALBUMIN 3.6 GM/DL (3.4-5.0); ALT (GPT) 14 U/L (10-53); AST (GOT) 15 U/L (15-37); BICARBONATE 24.2 MEQ/L (21.0-32.0); BLOOD UREA NITROGEN 7 MG/DL (7-18); CALCIUM 8.7 MG/DL (8.5-10.1); CHLORIDE 105 MEQ/L (98-107); CREATININE 0.82 MG/DL (0.50-1.00); GLOMERULAR FILTRATION RATE 70 ML/MIN (>89); GLUCOSE,RANDOM 92 MG/DL (74-106); SODIUM (NA) 137 MEQ/L (136-145)
[2018-01-30 19:02] LABS: ACETAMINOPHEN LESS THAN 2.0 MCG/ML (10.0-30.0); ALKALINE PHOSPHATASE 118 U/L (45-117); TOTAL BILIRUBIN ADULT 0.2 MG/DL (0.2-1.0); TOTAL PROTEIN 7.4 GM/DL (6.4-8.2)
[2018-01-30 19:35] LABS: BACTERIA, URINE RARE /hpf; BILIRUBIN, URINE NEG (NEG); BLOOD, URINE NEG (NEG); GLUCOSE,URINE NEG (NEG); KETONE, URINE NEG (NEG); MUCUS URINE FEW /lpf (OCC); NITRITE,URINE NEG (NEG); SQUAMOUS EPITHELIAL CELL URINE 4 /hpf (0-5); URINE COLOR YELLOW (YELLW/STRAW); URINE LEUKOCYTE ESTERASE NEG (NEG)
--- NOTE | 2018-01-30 20:13 | PD ---
HPI Chief Complaint: Psychiatric Symptoms Time Seen by Provider: 17:38 Travel History International Travel<30 days: No Contact w/Intl Traveler<30days: No Traveled to known affect area: No History of Present Illness HPI 67-year-old female presents to the ED under Lopez act for psychiatric evaluation. According to the Lopez act paper work the patient wrote a suicide note and planned to take multiple medications to kill herself. The patient states that she saw her primary care provider today and was called later in the day with some concern about her psychiatric well-being. She denies suicidal or homicidal ideation. She denies psychiatric history. She denies previous psychiatric hospitalization or suicide attempt. 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 She states that the only treatment that works for her headaches is Dilaudid and nobody will provide this to her. She states that her granddaughters are "supposed to be" caring for her. She states that she manages her own medications at home despite her memory loss. She complains of her regular headache on presentation and has no other somatic complaints. She is followed by Dr. Flores. [facility] Past Medical History Hx Anticoagulant Therapy: Yes (ELIQUIS) Anemia: Yes Arthritis: Yes Asthma: Yes Autoimmune Disease: No Blood Disorders: No Anxiety: Yes Depression: Yes Heart Rhythm Problems: Yes (SVT ) Cancer: Yes Cardiac Catheterization: Yes (X2) Cardiovascular Problems: Yes High Cholesterol: Yes Chemotherapy: Yes Chest Pain: Yes Congestive Heart Failure: Yes COPD: Yes Cerebrovascular Accident: Yes (X 4) Coronary Artery Disease: Yes Diabetes: No Patient Takes Glucophage: No Diminished Hearing: No Deep Vein Thrombosis: Yes (PE, DVT) Endocrine: Yes Gastrointestinal Disorders: Yes (GASTROPARESIS) GERD: Yes Gout: Yes Genitourinary: No Headaches: Yes Hiatal Hernia: No Hypertension: Yes Immune Disorder: No Implanted Vascular Access Dvce: Yes (HX OF PORT) Kidney Stones: No Medical other: No Musculoskeletal: Yes (arthritis) Neurologic: Yes (4 CVA's and seizure) Psychiatric: Yes Reproductive: No Respiratory: Yes Integumentary: Yes (HX OF MRSA) Immunizations Current: No Migraines: Yes Pancreatitis: Yes Radiation Therapy: No Renal Failure: No Seizures: Yes Sleep Apnea: No Thyroid Disease: Yes (HYPO) Ulcer: Yes PNEUMOCCOCAL Vaccine (Year): 2008 Menopausal: Yes : 6 Para: 3 Miscarriage: 3 Ovarian Cysts: Yes Past Surgical History Abdominal Surgery: Yes (COLON RESECTION, G TUBE PLACEMENT) AICD: No Appendectomy: Yes Arteriovenous Shunt: No Body Medical Devices: total knee replacement Cardiac Surgery: Yes Section: Yes (1) Cholecystectomy: Yes Coronary Stent: Yes Endocrine Surgery: No Eye Surgery: No Gynecologic Surgery: Yes () Hysterectomy: Yes Insulin Pump: No Joint Replacement: Yes (R ANKLE, R TOTAL KNEE May,) Neurologic Surgery: No Oral Surgery: Yes Pacemaker: No Thoracic Surgery: Yes Tonsillectomy: Yes (T&A) Other Surgery: Yes (IVC filter ) Family History Family Myocardial Infarction: Yes Family Hypercholesterolemia: Yes Social History Alcohol Use: No Tobacco Use: No Substance Use: No Allergies-Medications (Allergen,Severity, Reaction): Coded Allergies: Iodinated Contrast- Oral and IV Dye (Verified Allergy, Severe, CARDIAC ARREST, 01/30/18) adhesive (Unverified Allergy, Severe, BLISTER, 01/30/18) amlodipine (Unverified Allergy, Severe, "EKG CHANGES", 01/30/18) amylase (Unverified Allergy, Severe, RASH/SHOB, 01/30/18) atorvastatin (Unverified Allergy, Severe, "STATIN DRUGS"-RHABDOMYLIASIS, ) codeine (Unverified Allergy, Severe, RASH, 01/30/18) diatrizoate meglumine (Unverified Allergy, Severe, PT CODED, 01/30/18) diltiazem (Unverified Allergy, Severe, "EKG CHANGES", 01/30/18) enalaprilat (Unverified Allergy, Severe, 01/30/18) erythromycin base (Unverified Allergy, Severe, SVT, ARRHYTHMIAS, 01/30/18) gadobenic acid (Unverified Allergy, Severe, PT CODED, 01/30/18) gadodiamide (Unverified Allergy, Severe, PT CODED, 01/30/18) gadoteridol (Unverified Allergy, Severe, PT CODED, 01/30/18) iodine (Unverified Allergy, Severe, Anaphylaxis, 01/30/18) iodixanol (Unverified Allergy, Severe, PT CODED, 01/30/18) iohexol (Unverified Allergy, Severe, PT CODED, 01/30/18) isradipine (Unverified Allergy, Severe, "EKG CHANGES", 01/30/18) lipase (Unverified Allergy, Severe, RASH/SHOB, 01/30/18) metoclopramide (Unverified Allergy, Severe, TREMORS, 01/30/18) nalbuphine (Unverified Allergy, Severe, TREMORS, 01/30/18) nicardipine (Unverified Allergy, Severe, "EKG CHANGES", 01/30/18) nifedipine (Unverified Allergy, Severe, "EKG CHANGES", 01/30/18) nimodipine (Unverified Allergy, Severe, 01/30/18) potassium iodide (Unverified Allergy, Severe, Anaphylaxis, 01/30/18) povidone-iodine (Unverified Allergy, Severe, Anaphylaxis, 01/30/18) prochlorperazine (Unverified Allergy, Severe, SHAKES, 01/30/18) promethazine (Unverified Allergy, Severe, 01/30/18) PER PATIENT protease (Unverified Allergy, Severe, RASH/SHOB, 01/30/18) sodium iodide (Unverified Allergy, Severe, Anaphylaxis, 01/30/18) sodium iodide (Unverified Allergy, Severe, Anaphylaxis, 01/30/18) verapamil (Unverified Allergy, Severe, "EKG CHANGES", 01/30/18) Xmhxiap-Trn-Gdm Reductase Inhibitor (Verified Allergy, Intermediate, RHABDO, 01/30/18) *MDRO Multi-Drug Resistant Organism (Verified Adverse Reaction, Unknown, ) MRSA (wound) - 04/07/06, 09/24/08, 01/05/12 MRSA PCR (nares) POSITIVE - 07/28/16 Uncoded Allergies: LICORICE (Allergy, Severe, Anaphylaxis, 12/13/11) PER PATIENT NUTRASWEET (Adverse Reaction, Severe, HEADACHES, 08/28/10) Reported Meds & Prescriptions Reported Meds & Active Scripts Active Zoloft (Sertraline HCl) 100 Mg Tab 100 Mg PO DAILY Reported Voltaren (Diclofenac Sodium) 1 % Gel..gram. 1 % TOPICAL QID PRN Loperamide (Loperamide HCl) 2 Mg Cap 2 Mg PO DIRECTED PRN One capsule after each loose stool. Not to exceed 8 capsules per day. Lisinopril 30 Mg Tab 30 Mg PO DAILY Gabapentin 300 Mg Cap 300 Mg PO QID Ascorbic Acid 500 Mg Tab 500 Mg PO DAILY Tylenol (Acetaminophen) 325 Mg Tab 325 Mg PO Q4H PRN Clonidine (Clonidine HCl) 0.1 Mg Tab 0.1 Mg PO BID Eliquis (Apixaban) 2.5 Mg Tab 2.5 Mg PO BID Oxcarbazepine 300 Mg Tab 450 Mg PO BID Zofran Odt (Ondansetron Odt) 4 Mg Tab 4 Mg SL Q8HR PRN Metoprolol Tartrate 25 Mg Tab 25 Mg PO BID Vitamin B-12 (Cyanocobalamin (Vitamin B-12)) 50 Mcg Lozenge Levothyroxine (Levothyroxine Sodium) 25 Mcg Tab 25 Mcg PO DAILY Protonix (Pantoprazole Sodium) 40 Mg Tab 40 Mg PO DAILY Levetiracetam 500 Mg Tab 500 Mg PO 3TABS BID Review of Systems Except as stated in HPI: all other systems reviewed are Neg Physical Exam Narrative GENERAL: Well-nourished, well-developed white female in no acute distress. PSYCHIATRIC: Depressed demeanor, occasionally tearful. SKIN: Focused skin assessment warm/dry. Well-healed right AKA stump without signs of infection. HEAD: Normocephalic. EYES: No scleral icterus. No injection or drainage. NECK: Supple, trachea midline. No JVD or lymphadenopathy. CARDIOVASCULAR: Regular rate and rhythm without murmurs, gallops, or rubs. RESPIRATORY: Breath sounds clear and equal bilaterally. No accessory muscle use. GASTROINTESTINAL: Abdomen soft, non-tender, nondistended. Active bowel sounds. MUSCULOSKELETAL: No cyanosis, or edema. NEUROLOGICAL: Awake and alert. Cranial nerves II through XII intact. Motor and sensory grossly within normal limits. Five out of 5 muscle strength in all muscle groups. Normal speech. BACK: Nontender without obvious deformity. No CVA tenderness. Data Data Last Documented VS Vital Signs Date Time Temp Pulse Resp B/P (MAP) Pulse Ox O2 Delivery O2 Flow Rate FiO2 01/30/18 18:11 97.9 83 20 172/89 (116) 96 Orders Orders Complete Blood Count With Diff (01/30/18 17:26) Comprehensive Metabolic Panel (01/30/18 17:26) Thyroid Stimulating Hormone (01/30/18 17:26) Urinalysis - C+S If Indicated (01/30/18 17:) Psych Screen (01/30/18 17:) Drug Screen, Random Urine (01/30/18 17:) Alcohol (Ethanol) (01/30/18 17:26) Salicylates (Aspirin) (01/30/18 17:) Tylenol (Acetaminophen) (01/30/18 17:) Hydromorphone Pf Inj (Dilaudid Pf Inj) (01/30/18 21:00) Labs Laboratory Tests Test 01/30/18 18:00 01/30/18 19:20 White Blood Count 8.1 TH/MM3 Red Blood Count 4.73 MIL/MM3 Hemoglobin 13.4 GM/DL Hematocrit 40.3 % Mean Corpuscular Volume 85.1 FL Mean Corpuscular Hemoglobin 28.3 PG Mean Corpuscular Hemoglobin Concent 33.3 % Red Cell Distribution Width 13.5 % Platelet Count 258 TH/MM3 Mean Platelet Volume 7.6 FL Neutrophils (%) (Auto) 55.3 % Lymphocytes (%) (Auto) 30.5 % Monocytes (%) (Auto) 10.6 % Eosinophils (%) (Auto) 3.1 % Basophils (%) (Auto) 0.5 % Neutrophils # (Auto) 4.5 TH/MM3 Lymphocytes # (Auto) 2.5 TH/MM3 Monocytes # (Auto) 0.9 TH/MM3 Eosinophils # (Auto) 0.3 TH/MM3 Basophils # (Auto) 0.0 TH/MM3 CBC Comment DIFF FINAL Differential Comment Blood Urea Nitrogen 7 MG/DL Creatinine 0.82 MG/DL Random Glucose 92 MG/DL Total Protein 7.4 GM/DL Albumin 3.6 GM/DL Calcium Level 8.7 MG/DL Alkaline Phosphatase 118 U/L Aspartate Amino Transf (AST/SGOT) 15 U/L Alanine Aminotransferase (ALT/SGPT) 14 U/L Total Bilirubin 0.2 MG/DL Sodium Level 137 MEQ/L Potassium Level 3.6 MEQ/L Chloride Level 105 MEQ/L Carbon Dioxide Level 24.2 MEQ/L Anion Gap 8 MEQ/L Estimat Glomerular Filtration Rate 70 ML/MIN Thyroid Stimulating Hormone 3rd Gen 0.417 uIU/ML Salicylates Level LESS THAN 1.7 MG/DL Acetaminophen Level LESS THAN 2.0 MCG/ML Ethyl Alcohol Level LESS THAN 3 MG/DL Urine Color YELLOW Urine Turbidity CLEAR Urine pH 7.0 Urine Specific [place] 1.012 Urine Protein NEG mg/dL Urine Glucose (UA) NEG mg/dL Urine Ketones NEG mg/dL Urine Occult Blood NEG Urine Nitrite NEG Urine Bilirubin NEG Urine Urobilinogen LESS THAN 2.0 MG/DL Urine Leukocyte Esterase NEG Urine RBC 1 /hpf Urine WBC LESS THAN 1 /hpf Urine Squamous Epithelial Cells 4 /hpf Urine Bacteria RARE /hpf Urine Mucus FEW /lpf Microscopic Urinalysis Comment CULT NOT INDICATED Urine Opiates Screen NEG Urine Barbiturates Screen NEG Urine Amphetamines Screen NEG Urine Benzodiazepines Screen NEG Urine Cocaine Screen NEG Urine Cannabinoids Screen NEG MDM Medical Decision Making Medical Screen Exam Complete: Yes Emergency Medical Condition: Yes Differential Diagnosis Chronic headaches versus depression versus Adjustment disorder versus anxiety versus bipolar versus depression versus dementia versus electrolyte disorder versus malingering versus mood disorder versus ODD versus psychosis versus PTSD versus schizophrenia versus schizoaffective disorder versus substance-induced mood disorder versus other Narrative Course 67-year-old female presents to the ED under Lopez act for psychiatric evaluation. According to the Lopez act paper work the patient wrote a suicide note and planned to take multiple medications to kill herself. She denies suicidal or homicidal ideation. She denies psychiatric history. She denies previous psychiatric hospitalization or suicide attempt. 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 She states that the only treatment that works for her headaches is Dilaudid and nobody will provide this to her. She states that her granddaughters are "supposed to be" caring for her. She states that she manages her own medications at home despite her memory loss. She complains of her regular headache on presentation and has no other somatic complaints. She is followed by Dr. Flores. Vitals reviewed. On exam the patient has a depressed demeanor and is occasionally tearful during the interview. Physical exam is otherwise very reassuring. No concerning abnormalities of CBC, CMP, UA or tox screen. It is noted that there is a suicide note accompanying the patient. She is medically cleared for psychiatric evaluation. Diagnosis Primary Impression: Medical clearance for psychiatric admission Yuki Tillman Jan 30, 2018 20:12
[2018-01-30] MEDS ORDERED: LISI30TA4 PO (20:29)
[2018-01-30] MEDS ORDERED: GABA300C5 PO (20:29)
[2018-01-30] MEDS ORDERED: VOLT1GEL16 TOPICAL (20:29)
[2018-01-30] MEDS ORDERED: LOPE2CAP PO (20:29)
[2018-01-30] MEDS ORDERED: HYDROmorphone HCL PF 2 MG/ML VIAL SQ ONE (21:00)
[2018-01-30] MEDS ORDERED: DILA100C PO (21:27)
[2018-01-30] MEDS ORDERED: LORazepam 2 MG/ML VIAL - age > 65 yrs IM PRN (22:00)
[2018-01-30] MEDS ORDERED: ALUMINUM/MAGNESIUM/SIMETH 30 ML CUP PO PRN (22:00)
[2018-01-30] MEDS ORDERED: MAGNESIUM HYDROXIDE SUSP 30 ML CUP PO PRN (22:00)
[2018-01-30] MEDS ORDERED: LORazepam 2 MG/ML VIAL IM PRN (22:00)
[2018-01-30] MEDS ORDERED: diphenhydrAMINE HCL 50 MG/ML VIAL - HS PRN IM (22:00)
[2018-01-30] MEDS ORDERED: LORazepam 1 MG TAB PO PRN (22:00)
[2018-01-30] MEDS ORDERED: LORazepam 0.5 MG TAB age > 65 yrs PO PRN (22:00)
[2018-01-30 22:15] VITALS: BP 177/82; PULSE 83; RESP 18; TEMP 98.6; O2SAT 98
[2018-01-30] MEDS ORDERED: ONDANSETRON ODT 4 MG TAB SL PRN (23:00)
[2018-01-31 03:30] VITALS: BP 172/92; PULSE 92; RESP 16; TEMP 97.8; O2SAT 98
[2018-01-31] MEDS ORDERED: LORazepam 2 MG/ML VIAL IM ONE (04:00)
[2018-01-31 05:50] VITALS: BP 133/69; PULSE 90; RESP 16; TEMP 97.8; O2SAT 98
[2018-01-31] MEDS ORDERED: LEVOTHYROXINE SODIUM 25 MCG TAB PO SCH (06:00)
[2018-01-31] MEDS ORDERED: METOPROLOL TARTRATE 25 MG TAB PO SCH (09:00)
[2018-01-31] MEDS ORDERED: APIXABAN 2.5 MG TABLET PO SCH (09:00)
[2018-01-31] MEDS ORDERED: LISINOPRIL 10 MG TAB PO SCH (09:00)
[2018-01-31] MEDS ORDERED: PANTOPRAZOLE SOD 40 MG DELAYED RELEASE TAB PO SCH (09:00)
[2018-01-31] MEDS ORDERED: OXcarbazepine 150 MG TAB PO SCH (09:00)
[2018-01-31] MEDS ORDERED: cloNIDine HCL 0.1 MG TAB PO SCH (09:00)
[2018-01-31] MEDS: ASCORBIC ACID 500 MG TAB PO SCH (09:32)
[2018-01-31] MEDS: GABAPENTIN 300 MG CAP PO SCH ×6 (09:32→20:52)
[2018-01-31] MEDS: levETIRAcetam 500 MG TAB PO SCH ×2 (09:32→20:52)
[2018-01-31] MEDS: NICOTINE 21 MG/24 HR PATCH T-DERMAL SCH (09:32)
[2018-01-31 09:33] VITALS: BP 172/92; PULSE 92; RESP 16; TEMP 97.8; O2SAT 98
[2018-01-31] MEDS: SERTRALINE HCL 100 MG TAB PO SCH ×2 (09:41→10:51)
[2018-01-31] MEDS ORDERED: DICLOFENAC SODIUM 1% TOPICAL PRN (11:00)
[2018-01-31] MEDS ORDERED: ACETAMINOPHEN 325 MG TAB PO PRN (11:00)
--- NOTE | 2018-01-31 11:13 | HHI.HP ---
Provisional Diagnosis Admission Date Jan 30, 2018 at 21:34 Re[place] I. Major depressive disorder recurrent severe without psychosis F 33.2 Certification of Person's Competence To Provide Express and Informed Consent I have personally examined Melisa Hernandez , a person being served at [facility] on, Jan 31, 2018 10:59. Express and informed consent means consent voluntarily given in writing, by a competent person, after sufficient explanation and disclosure of the subject matter involved to enable the person to make a knowing and willful decision without any element of force, fraud, deceit, duress, or other form of constraint or coercion. This person is 18 years of age or older, is not now known to be incompetent to consent to treatment with a guardian advocate, and does not have a health care surrogate or proxy currently making medical treatment decisions. I have found this person to be one of the following: [] Competent to provide express and informed consent, as defined above, for voluntary admission to this facility and is competent to provide express and informed consent for treatment. He/she has the consistent capacity to make well reasoned, willful, and knowing decisions concerning his or her medical or mental health treatment. The person fully and consistently understands the purpose of the admission for examination/placement and is fully capable of personally exercising all rights assured under [place] [] Incompetent to provide express and informed consent to voluntary admission, and this is incompetent to provide express and informed consent to treatment. The person must be transferred to involuntary status and a petition for a guardian advocate filed with the Circuit Court. []xx Refusing to provide express and informed consent to voluntary admission but is competent to provide express and informed consent for treatment. The person must be discharged or transferred to involuntary status. Form shall be completed within 24 hours of a person's arrival at the receiving facility and filed in the clinical record of each person: 1. Admitted on a voluntary basis 2. Permitted to provide express and informed consent to his/her own treatment 3. Allowed to transfer from involuntary to voluntary status 4. Prior to permitting a person to consent to his or her own treatment after having been previously found incompetent to consent to treatment. History of Present Illness Capacity: Lacks Capacity (patient less capacity to sign for admission, patient has capacity to sign for medications) HPI Patient came to the emergency department under Lopez act signed by the [place] [employer] dated 3 06/12/1650 p.m. that documented reviewed initially stated: Javier was with a health care provider in her apartment when she informed them that she did not want to live any longer upon arrival of suicide letter was found with numerous pill bottles by Ms. Hernandez. Ms. Hernandez stated she is tired and cannot be in pain any longer David stated her grandchildren are patent to look after her and don't show up. David was intending on ending her life. Patient seen screened and medically cleared in ED urine toxicology negative blood alcohol negative. At the present time patient initially sitting quietly in her bed is noted she has a right AK amputation. She did easily transfer herself to her wheelchair. Of note I did care for this patient for an extended period of time in our now closed outpatient mental health clinic here at [facility]. The clinic closed in November 2016. Patient had been doing fairly well. It appears since then she has had multiple traumatic episodes including her right knee replacement becoming septic leading to multiple surgical revisions and the AK amputation. She developed acute sepsis leading to renal failure and the need for temporary dialysis. More recently she suffered a stroke was hospitalized for that. She does have some residual short-term memory issues though her speech is overall goal oriented and focused she has little difficulty with date time and location. Patient states the depressed mood and crying episodes. That her mood is more labile. She says her sleep is very poor it is repeatedly interrupted. Her appetite has diminished. She is quite depressed. With increased suicidal ideation and the plan to overdose on her multiple medications. She denies voices or visions with this. Denies alcohol or other drug use. She did speak with patient's daughter "Radha" who is a nurse here at [facility] will meet with her tomorrow morning at about 9:30 along with her mother to discuss this admission and goals of the admission. At this time patient does meet criteria under the Lopez act for involuntary psychiatric hospitalization I'll do first opinion request second opinion. Of interest patient suicide note is quite detailed and in the chart for perusal. I feel patient is a capacity to sign for medications will continue medications per the med reconciliation. We'll have Dr. Barrett her primary care physician consult will thus, we'll have Dr. Disa her neurologist also consult with us. Patient is Religion she was stressed us to have a curriculum developer, drug and alcohol counselor her. Also have PT and OT assess this lady. Long-term placement may be something frustrated consider Review of Systems Constitutional: DENIES: Diaphoretic episodes, Fatigue, Fever, Weight gain, Weight loss, Chills, Dizziness, Change in appetite, Night Sweats Endocrine: DENIES: Abnorml menstrual pattern, Heat/cold intolerance, Polydipsia , Polyuria, Polyphagia Eyes: DENIES: Blurred vision, Diplopia, Eye inflammation, Eye pain, Vision loss , Photosensitivity, Double Vision Ears, nose, mouth, throat: DENIES: Tinnitus, Hearing loss, Vertigo, Nasal discharge, Oral lesions, Throat pain, Hoarseness, Ear Pain, Running Nose, Epistaxis, Sinus Pain, Toothache, Odynophagia Respiratory: DENIES: Apneas, Cough, Snoring, Wheezing, Hemoptysis, Sputum production, Shortness of breath Cardiovascular: DENIES: Chest pain, Palpitations, Syncope, Dyspnea on Exertion , PND, Lower Extremity Edema, Orthopnea, Claudication Gastrointestinal: DENIES: Abdominal pain, Black stools, Bloody stools, Constipation, Diarrhea, Nausea, Vomiting, Difficulty Swallowing, Anorexia Genitourinary: DENIES: Abnormal vaginal bleeding, Dysmenorrhea, Dyspareunia, Sexual dysfunction, Urinary frequency, Urinary incontinence, Urgency, Hematuria , Dysuria, Nocturia, Vaginal discharge Musculoskeletal: DENIES: Joint pain, Muscle aches, Stiffness, Joint Swelling, Back pain, Neck pain Integumentary: DENIES: Abnormal pigmentation, Pruritus, Rash, Nail changes, Breast masses, Breast skin changes, Nipple discharge Hematologic/lymphatic: DENIES: Bruising, Lymphadenopathy Immunologic/allergic: DENIES: Eczema, Urticaria Neurologic: COMPLAINS OF: Abnormal gait (patient right AKA) Psychiatric: COMPLAINS OF: Anxiety, Depression, Suicidal Ideation Past Psych History Psychological trauma history Patient long history of depression Violence risk - others (6 mos) Low Violence risk - self (6 mos) Moderate Substance Abuse History Drugs/Alcohol past 12 months Denies Past Family Social History Coded Allergies: Iodinated Contrast- Oral and IV Dye (Verified Allergy, Severe, CARDIAC ARREST, 01/30/18) adhesive (Unverified Allergy, Severe, BLISTER, 01/30/18) amlodipine (Unverified Allergy, Severe, "EKG CHANGES", 01/30/18) amylase (Unverified Allergy, Severe, RASH/SHOB, 01/30/18) atorvastatin (Unverified Allergy, Severe, "STATIN DRUGS"-RHABDOMYLIASIS, ) codeine (Unverified Allergy, Severe, RASH, 01/30/18) diatrizoate meglumine (Unverified Allergy, Severe, PT CODED, 01/30/18) diltiazem (Unverified Allergy, Severe, "EKG CHANGES", 01/30/18) enalaprilat (Unverified Allergy, Severe, 01/30/18) erythromycin base (Unverified Allergy, Severe, SVT, ARRHYTHMIAS, 01/30/18) gadobenic acid (Unverified Allergy, Severe, PT CODED, 01/30/18) gadodiamide (Unverified Allergy, Severe, PT CODED, 01/30/18) gadoteridol (Unverified Allergy, Severe, PT CODED, 01/30/18) iodine (Unverified Allergy, Severe, Anaphylaxis, 01/30/18) iodixanol (Unverified Allergy, Severe, PT CODED, 01/30/18) iohexol (Unverified Allergy, Severe, PT CODED, 01/30/18) isradipine (Unverified Allergy, Severe, "EKG CHANGES", 01/30/18) lipase (Unverified Allergy, Severe, RASH/SHOB, 01/30/18) metoclopramide (Unverified Allergy, Severe, TREMORS, 01/30/18) nalbuphine (Unverified Allergy, Severe, TREMORS, 01/30/18) nicardipine (Unverified Allergy, Severe, "EKG CHANGES", 01/30/18) nifedipine (Unverified Allergy, Severe, "EKG CHANGES", 01/30/18) nimodipine (Unverified Allergy, Severe, 01/30/18) potassium iodide (Unverified Allergy, Severe, Anaphylaxis, 01/30/18) povidone-iodine (Unverified Allergy, Severe, Anaphylaxis, 01/30/18) prochlorperazine (Unverified Allergy, Severe, SHAKES, 01/30/18) promethazine (Unverified Allergy, Severe, 01/30/18) PER PATIENT protease (Unverified Allergy, Severe, RASH/SHOB, 01/30/18) sodium iodide (Unverified Allergy, Severe, Anaphylaxis, 01/30/18) sodium iodide (Unverified Allergy, Severe, Anaphylaxis, 01/30/18) verapamil (Unverified Allergy, Severe, "EKG CHANGES", 01/30/18) Vwgloin-Cqz-Wkr Reductase Inhibitor (Verified Allergy, Intermediate, RHABDO, 01/30/18) Uncoded Allergies: LICORICE (Allergy, Severe, Anaphylaxis, 12/13/11) PER PATIENT NUTRASWEET (Adverse Reaction, Severe, HEADACHES, 08/28/10) Active Scripts Sertraline (Zoloft) 100 Mg Tab, 100 MG PO DAILY for depression, #30 TAB 0 Refills Prov:Cosmo Morris MD 10/05/16 Reported Medications Phenytoin Extended (Dilantin) 100 Mg Cap, 150 MG PO BID for Control Seizures, # 90 CAP 0 Refills 01/30/18 Diclofenac Sodium (Voltaren) 1 % Gel..gram., 1 % TOPICAL QID Y for PAIN SCALE 1 TO 10 01/30/18 Loperamide (Loperamide) 2 Mg Cap, 2 MG PO DIRECTED Y for DIARRHEA, CAP 0 Refills One capsule after each loose stool. Not to exceed 8 capsules per day. 01/30/18 Lisinopril (Lisinopril) 30 Mg Tab, 30 MG PO DAILY for Blood Pressure Management , #30 TAB 0 Refills 01/30/18 Gabapentin (Gabapentin) 300 Mg Cap, 300 MG PO QID, #30 CAP 0 Refills 01/30/18 Ascorbic Acid (Ascorbic Acid) 500 Mg Tab, 500 MG PO DAILY, TAB 12/20/17 Acetaminophen (Tylenol) 325 Mg Tab, 325 MG PO Q4H Y for PAIN SCALE 1 TO 5, TAB 0 Refills 12/20/17 Clonidine (Clonidine) 0.1 Mg Tab, 0.1 MG PO BID for Blood Pressure Management, # 60 TAB 0 Refills 12/20/17 Apixaban (Eliquis) 2.5 Mg Tab, 2.5 MG PO BID for Blood Clot Prevention, TAB 0 Refills 12/20/17 Oxcarbazepine (Oxcarbazepine) 300 Mg Tab, 450 MG PO BID for Seizure Control, # 60 TAB 0 Refills 12/20/17 Ondansetron Odt (Zofran Odt) 4 Mg Tab, 4 MG SL Q8HR Y for Nausea/Vomiting, #30 TAB 0 Refills 12/20/17 Metoprolol Tartrate (Metoprolol Tartrate) 25 Mg Tab, 25 MG PO BID, #60 TAB 0 Refills 12/20/17 Cyanocobalamin (Vitamin B-12) (Vitamin B-12) 50 Mcg Lozenge 07/22/17 Levothyroxine (Levothyroxine) 25 Mcg Tab, 25 MCG PO DAILY for Thyroid, #30 TAB 0 Refills 07/22/17 Pantoprazole (Protonix) 40 Mg Tab, 40 MG PO DAILY for Reflux, #30 TAB 0 Refills 07/22/17 Levetiracetam (Levetiracetam) 500 Mg Tab, 500 MG PO 3tabs BID for Control Seizures, #120 TAB 0 Refills 10/04/16 Discontinued Reported Medications Polyethylene Glycol 3350 Powder (Polyethylene Glycol 3350 Powder) 17 Gram Pow, 17 GM PO DAILY for Constipation, #1 BOTTLE 0 Refills 12/20/17 Pantoprazole (Protonix) 40 Mg Tab, 40 MG PO DAILY for Reflux, #30 TAB 0 Refills 12/20/17 Melatonin (Melatonin) 5 Mg Tab, 5 MG PO HS Y for INSOMNIA, TAB 0 Refills 12/20/17 Magnesium Hydroxide Liq (Milk of Magnesia Liq) 400 Mg/5 Ml Susp, 30 ML PO DAILY Y for INDIGESTION OR UPSET STOMACH, #1 BOTTLE 0 Refills 12/20/17 Lidocaine Topical (Lidocaine Topical) 5 % Oint, 1 APPLIC TOPICAL DAILY Y for PAIN, #1 TUBE 0 Refills 12/20/17 Levothyroxine (Levothyroxine) 25 Mcg Tab, 25 MCG PO DAILY for Thyroid, #30 TAB 0 Refills 12/20/17 Gabapentin (Gabapentin) 600 Mg Tab, 600 MG PO QID, #60 TAB 0 Refills 12/20/17 Ferrous Sulfate (Ferrous Sulfate) 325 Mg (65 Mg Iron) Tablet, 325 MG PO DAILY for Nutritional Supplement, #30 TAB 0 Refills 12/20/17 Diclofenac Topical (Diclofenac Topical) 1% Gel, 1 APPLIC TOPICAL QID for Pain Management, #100 GM 0 Refills 12/20/17 Lisinopril (Lisinopril) 20 Mg Tab, 20 MG PO DAILY, #30 TAB 0 Refills 12/20/17 Ibuprofen (Ibuprofen) 200 Mg Tab, 200 MG PO Q6H Y for PAIN SCALE 1 TO 5, TAB 0 Refills 12/20/17 Phenytoin Extended (Phenytoin Extended) 100 Mg Cap, 150 MG PO TID for Control Seizures, #90 CAP 0 Refills 12/20/17 Vitamin A Palmitate (Vitamin A) 10,000 Unit Capsule 07/22/17 Cholecalciferol (Vitamin D-1000) 1,000 Unit Tab, 1000 UNITS PO DAILY for Nutritional Supplement, #1 BOTTLE 0 Refills 07/22/17 Ascorbic Acid (Vitamin C) 250 Mg Chew, 250 MG CHEW DAILY for Nutritional Supplement, #30 TAB 0 Refills 07/22/17 Trazodone (Trazodone) 100 Mg Tablet, 100 MG PO HS for Control Depression, #30 TAB 0 Refills 07/22/17 Sertraline (Zoloft) 50 Mg Tab, 50 MG PO DAILY, #30 TAB 0 Refills 07/22/17 Quetiapine (Seroquel) 100 Mg Tab, 100 MG PO HS, #30 TAB 0 Refills 07/22/17 Levetiracetam (Keppra) 250 Mg Tab, 100 MG PO BID for Control Seizures, #60 TAB 0 Refills 07/22/17 Prednisone (Prednisone) 10 Mg Tab, 10 MG PO DAILY, TAB 0 Refills 07/22/17 Gabapentin (Gabapentin) 100 Mg Cap, 200 MG PO QID, #60 CAP 0 Refills 07/22/17 Metoprolol Succinate ER 24 HR (Metoprolol Succinate ER 24 HR) 25 Mg Tab, 12.5 MG PO BID, #30 TAB 0 Refills 07/22/17 Discontinued Scripts Ondansetron Odt (Zofran Odt) 4 Mg Tab, 4 MG SL Q8HR Y for Nausea/Vomiting, #20 TAB 0 Refills Prov:Carl Fisher MD 12/21/17 Tramadol (Ultram) 50 Mg Tab, 50 MG PO Q8H Y for PAIN, #10 TAB 0 Refills Prov:Carl Fisher MD 12/21/17 Oxycodone-Acetaminophen (Percocet) 5-325 mg Tab, 1 TAB PO Q6H Y for PAIN, #6 TAB 0 Refills Prov:Bud Elliott MD 09/17/17 Current Medications Medications (Trade) Dose Ordered Sig/Rodney Route Start Time Stop Time Status Last Admin (Ativan) 0.5 mg Q12H PRN PO 01/30/18 22:00 (Ativan Inj) 0.5 mg Q12H PRN IM 01/30/18 22:00 (Benadryl) 50 mg HS PRN PO 01/30/18 22:00 (Benadryl Inj) 50 mg HS PRN IM 01/30/18 22:00 (Tylenol) 650 mg Q4H PRN PO 01/30/18 22:00 (Milk Of Magnesia Liq) 30 ml DAILY PRN PO 01/30/18 22:00 (Mag-Al Plus Susp Liq) 30 ml Q6H PRN PO 01/30/18 22:00 (Habitrol 21 Mg Patch.24 Hr) 1 patch DAILY T-DERMAL 01/31/18 09:00 Miscellaneous Information 1 HS T-DERMAL 01/31/18 21:00 (Keppra) 1,500 mg BID PO 01/31/18 09:00 01/31/18 09:32 (Zoloft) 100 mg DAILY PO 01/31/18 09:00 01/31/18 10:51 (Protonix) 40 mg DAILY PO 01/31/18 09:00 01/31/18 09:33 (Synthroid) 25 mcg DAILY@0600 PO 01/31/18 06:00 01/31/18 05:35 (Lopressor) 25 mg BID PO 01/31/18 09:00 01/31/18 09:32 (Zofran Odt) 4 mg Q8H PRN SL 01/30/18 23:00 (Trileptal) 450 mg BID PO 01/31/18 09:00 01/31/18 10:44 (Eliquis) 2.5 mg BID PO 01/31/18 09:00 01/31/18 10:44 (Catapres) 0.1 mg BID PO 01/31/18 09:00 01/31/18 09:33 (Vitamin C) 500 mg DAILY PO 01/31/18 09:00 01/31/18 09:32 (Neurontin) 300 mg QID PO 01/31/18 09:00 01/31/18 09:32 (Prinivil) 30 mg DAILY PO 01/31/18 09:00 01/31/18 09:33 Family Psych History Patient denies Social History Patient lives in her own apartment has supportive family Patient's Strengths (min. 2) Patient verbal able access healthcare Physical Exam Patient medically cleared ED at the present time patient sitting quietly in her wheelchair she is in no acute distress, no complaints of chest pain, she is in no respiratory distress, no complaints of abdominal pain patient moving left leg and both arms without difficulty Vital Signs Vital Signs Date Time Temp Pulse Resp B/P (MAP) Pulse Ox O2 Delivery O2 Flow Rate FiO2 01/31/18 09:33 97.8 92 16 172/92 (118) 98 I/O 01/31/18 01/31/18 02/01/18 08:00 16:00 00:00 Intake Total 120 ml Balance 120 ml Lab Results Test 01/30/18 18:00 01/30/18 19:20 White Blood Count 8.1 TH/MM3 Red Blood Count 4.73 MIL/MM3 Hemoglobin 13.4 GM/DL Hematocrit 40.3 % Mean Corpuscular Volume 85.1 FL Mean Corpuscular Hemoglobin 28.3 PG Mean Corpuscular Hemoglobin Concent 33.3 % Red Cell Distribution Width 13.5 % Platelet Count 258 TH/MM3 Mean Platelet Volume 7.6 FL Neutrophils (%) (Auto) 55.3 % Lymphocytes (%) (Auto) 30.5 % Monocytes (%) (Auto) 10.6 % Eosinophils (%) (Auto) 3.1 % Basophils (%) (Auto) 0.5 % Neutrophils # (Auto) 4.5 TH/MM3 Lymphocytes # (Auto) 2.5 TH/MM3 Monocytes # (Auto) 0.9 TH/MM3 Eosinophils # (Auto) 0.3 TH/MM3 Basophils # (Auto) 0.0 TH/MM3 CBC Comment DIFF FINAL Differential Comment Blood Urea Nitrogen 7 MG/DL Creatinine 0.82 MG/DL Random Glucose 92 MG/DL Total Protein 7.4 GM/DL Albumin 3.6 GM/DL Calcium Level 8.7 MG/DL Alkaline Phosphatase 118 U/L Aspartate Amino Transf (AST/SGOT) 15 U/L Alanine Aminotransferase (ALT/SGPT) 14 U/L Total Bilirubin 0.2 MG/DL Sodium Level 137 MEQ/L Potassium Level 3.6 MEQ/L Chloride Level 105 MEQ/L Carbon Dioxide Level 24.2 MEQ/L Anion Gap 8 MEQ/L Estimat Glomerular Filtration Rate 70 ML/MIN Thyroid Stimulating Hormone 3rd Gen 0.417 uIU/ML Salicylates Level LESS THAN 1.7 MG/DL Acetaminophen Level LESS THAN 2.0 MCG/ML Ethyl Alcohol Level LESS THAN 3 MG/DL Urine Color YELLOW Urine Turbidity CLEAR Urine pH 7.0 Urine Specific [place] 1.012 Urine Protein NEG mg/dL Urine Glucose (UA) NEG mg/dL Urine Ketones NEG mg/dL Urine Occult Blood NEG Urine Nitrite NEG Urine Bilirubin NEG Urine Urobilinogen LESS THAN 2.0 MG/DL Urine Leukocyte Esterase NEG Urine RBC 1 /hpf Urine WBC LESS THAN 1 /hpf Urine Squamous Epithelial Cells 4 /hpf Urine Bacteria RARE /hpf Urine Mucus FEW /lpf Microscopic Urinalysis Comment CULT NOT INDICATED Urine Opiates Screen NEG Urine Barbiturates Screen NEG Urine Amphetamines Screen NEG Urine Benzodiazepines Screen NEG Urine Cocaine Screen NEG Urine Cannabinoids Screen NEG Mental Status Examination Appearance: Appropriate Consciousness: Alert Orientation: Person, Place (initially vague), Date/Time (initially vague) Speech: Unremarkable Language: Adequate Fund of Knowledge: Adequate Attention and Concentration: Other (fair) Memory: Impaired Mood: Sad Affect: Other (slight increase range and intensity) Thought Process & Associations: Linear Thought Content: Appropriate Hallucination Type: None Delusion Type: None Suicidal Ideation: Yes (vague) Suicidal Plan: Yes (would overdose on her medication) Suicidal Intention: No Homicidal Ideation: No Homicidal Plan: No Homicidal Intention: No Insight: Adequate Judgment: Adequate Assessment & Plan Problem List: (1) Major depressive disorder, recurrent severe without psychotic features ICD Codes: F33.2 - Major depressive disorder, recurrent severe without psychotic features Assessment & Plan Estimated LOS 5-7: days this time patient does meet criteria for involuntary psychiatric hospitalization I'll do first opinion request second opinion, therefore she does have capacity is high for medication. Will have Dr. Barrett her PCP consult was with Dr. Mina vega her neurologist consult with us, we'll refer also to the curriculum developer for counseling, and refer OT and PT. Will meet the patient's daughter her morning about 9:30 Discharge Planning To be determined Request HC Surrog/Guard Advoc?: No Cosmo Mroris MD Jan 31, 2018 11:13
[2018-01-31] MEDS ORDERED: PILL SPLITTER OTHER PRN (11:45)
--- NOTE | 2018-01-31 13:25 | MB ---
cc: Katy Ruiz MD DATE OF CONSULT: REASON FOR CONSULTATION: Memory decline, history of stroke. The patient is a 67-year-old woman, apparently Lopez Acted because she wanted to end her life. She is currently in room 2509 and lying in bed sedated, does not really answer questions. When I asked her where she is at, she told me she is on the street. Then she closed her eyes and went back to sleep, not wanting to participate. History then is taken from the chart. Apparently, she stated to people that she was tired, cannot be in pain any longer. Stated her grandchildren are to look after her, but they do not show up. 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 She has been following with my associate, Dr. Garcia. PAST PSYCHIATRIC HISTORY: Depression. ALLERGIES: NUMEROUS. PLEASE REFER TO HER MR. ACTIVE MEDICINES: Zoloft, Dilantin 150 mg twice a day. She is also on gabapentin 300 mg 4 times a day, clonidine, Eliquis, oxcarbazepine 450 mg twice a day, metoprolol, B12, pantoprazole, levothyroxine, Keppra 500 mg she takes 3 tablets twice a day. SOCIAL HISTORY: , lives apparently own apartment, has family aiding to her per chart. On exam, vitals, temperature is 97.8, pulse 92, respiratory rate 16, blood pressure 172/92, satting at 98%. She is arouseable, mumbles a few words. Pupils react. Her face looks symmetrical. She seems to withdraw everything. She has a right AKA. She tells me she is on the street, so I do not know how oriented she is or is this a participation issue. LABORATORIES: Reviewed. Her CBC is unremarkable. Chemistries: GFR 70, alk phos 118. TSH is normal. Tox screen was negative of her urine, no cultures indicated. She did not have any brain scan, but she had one in July of last year that was unremarkable for her age. IMPRESSION: A 67-year-old woman with what appears to suicidal ideation with multiple medical issues, depression, stroke history, and possible cognitive impairment. From a neurological perspective, will go ahead and get an EEG. If can do, do an MRI brain. Check a B12. Add an RPR. She is on so much medication at this point in time for seizures. I am not sure if some are used for pain and for psychiatric, but certainly, levels can be drawn. Gabapentin more for pain. Trileptal can be used for pain and for seizures, Dilantin mostly seizures, Keppra seizures, so she is already on multiple medications. We can certainly obtain some levels. Get the EEG done and at this point in time, I do not want to initiate any type of medicines for memory. I would defer that to a followup in the office, but I will go ahead and order the EEG, MRI and some drug levels and have her continue with psychiatry as doing. MD ROBIN Knight/TETE , 01:07 PM , 01:24 PM
--- NOTE | 2018-01-31 17:00 | PD.CONS ---
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 Review of Systems Psychiatric: COMPLAINS OF: Depression Past Family Social History Allergies: Coded Allergies: Iodinated Contrast- Oral and IV Dye (Verified Allergy, Severe, CARDIAC ARREST, 01/30/18) adhesive (Unverified Allergy, Severe, BLISTER, 01/30/18) amlodipine (Unverified Allergy, Severe, "EKG CHANGES", 01/30/18) amylase (Unverified Allergy, Severe, RASH/SHOB, 01/30/18) atorvastatin (Unverified Allergy, Severe, "STATIN DRUGS"-RHABDOMYLIASIS, ) codeine (Unverified Allergy, Severe, RASH, 01/30/18) diatrizoate meglumine (Unverified Allergy, Severe, PT CODED, 01/30/18) diltiazem (Unverified Allergy, Severe, "EKG CHANGES", 01/30/18) enalaprilat (Unverified Allergy, Severe, 01/30/18) erythromycin base (Unverified Allergy, Severe, SVT, ARRHYTHMIAS, 01/30/18) gadobenic acid (Unverified Allergy, Severe, PT CODED, 01/30/18) gadodiamide (Unverified Allergy, Severe, PT CODED, 01/30/18) gadoteridol (Unverified Allergy, Severe, PT CODED, 01/30/18) iodine (Unverified Allergy, Severe, Anaphylaxis, 01/30/18) iodixanol (Unverified Allergy, Severe, PT CODED, 01/30/18) iohexol (Unverified Allergy, Severe, PT CODED, 01/30/18) isradipine (Unverified Allergy, Severe, "EKG CHANGES", 01/30/18) lipase (Unverified Allergy, Severe, RASH/SHOB, 01/30/18) metoclopramide (Unverified Allergy, Severe, TREMORS, 01/30/18) nalbuphine (Unverified Allergy, Severe, TREMORS, 01/30/18) nicardipine (Unverified Allergy, Severe, "EKG CHANGES", 01/30/18) nifedipine (Unverified Allergy, Severe, "EKG CHANGES", 01/30/18) nimodipine (Unverified Allergy, Severe, 01/30/18) potassium iodide (Unverified Allergy, Severe, Anaphylaxis, 01/30/18) povidone-iodine (Unverified Allergy, Severe, Anaphylaxis, 01/30/18) prochlorperazine (Unverified Allergy, Severe, SHAKES, 01/30/18) promethazine (Unverified Allergy, Severe, 01/30/18) PER PATIENT protease (Unverified Allergy, Severe, RASH/SHOB, 01/30/18) sodium iodide (Unverified Allergy, Severe, Anaphylaxis, 01/30/18) sodium iodide (Unverified Allergy, Severe, Anaphylaxis, 01/30/18) verapamil (Unverified Allergy, Severe, "EKG CHANGES", 01/30/18) [place]-Taw-Dbi Reductase Inhibitor (Verified Allergy, Intermediate, RHABDO, 01/30/18) Uncoded Allergies: LICORICE (Allergy, Severe, Anaphylaxis, 12/13/11) PER PATIENT NUTRASWEET (Adverse Reaction, Severe, HEADACHES, 08/28/10) Physical Exam Vital Signs Vital Signs Date Time Temp Pulse Resp B/P (MAP) Pulse Ox O2 Delivery O2 Flow Rate FiO2 01/31/18 09:33 97.8 92 16 172/92 (118) 98 01/31/18 05:50 97.8 90 16 133/69 (90) 98 01/31/18 03:30 97.8 92 16 172/92 (118) 98 01/30/18 22:15 98.6 83 18 177/82 (113) 98 01/30/18 18:11 97.9 83 20 172/89 (116) 96 Physical Exam GENERAL: This is a well-nourished, well-developed patient, in no apparent distress. SKIN: No rashes, ecchymoses or lesions. Cool and dry. HEAD: Atraumatic. Normocephalic. No temporal or scalp tenderness. EYES: Pupils equal round and reactive. Extraocular motions intact. No scleral icterus. No injection or drainage. ENT: Nose without bleeding, purulent drainage or septal hematoma. Throat without erythema, tonsillar hypertrophy or exudate. Uvula midline. Airway patent. NECK: Trachea midline. No JVD or lymphadenopathy. Supple, nontender, no meningeal signs. CARDIOVASCULAR: Regular rate and rhythm without murmurs, gallops, or rubs. RESPIRATORY: Clear to auscultation. Breath sounds equal bilaterally. No wheezes , rales, or rhonchi. GASTROINTESTINAL: Abdomen soft, non-tender, nondistended. No hepato-splenomegaly , or palpable masses. No guarding. MUSCULOSKELETAL: Extremities without clubbing, cyanosis, or edema. No joint tenderness, effusion, or edema noted. No calf tenderness. Negative Homans sign bilaterally.right AKA present NEUROLOGICAL: Awake and alert. Cranial nerves II through XII intact. Motor and sensory grossly within normal limits. Five out of 5 muscle strength in all muscle groups. Normal speech. Laboratory Laboratory Tests Test 01/30/18 18:00 01/30/18 19:20 01/31/18 15:56 01/31/18 16:27 White Blood Count 8.1 Red Blood Count 4.73 Hemoglobin 13.4 Hematocrit 40.3 Mean Corpuscular Volume 85.1 Mean Corpuscular Hemoglobin 28.3 Mean Corpuscular Hemoglobin Concent 33.3 Red Cell Distribution Width 13.5 Platelet Count 258 Mean Platelet Volume 7.6 Neutrophils (%) (Auto) 55.3 Lymphocytes (%) (Auto) 30.5 Monocytes (%) (Auto) 10.6 Eosinophils (%) (Auto) 3.1 Basophils (%) (Auto) 0.5 Neutrophils # (Auto) 4.5 Lymphocytes # (Auto) 2.5 Monocytes # (Auto) 0.9 Eosinophils # (Auto) 0.3 Basophils # (Auto) 0.0 CBC Comment DIFF FINAL Differential Comment Blood Urea Nitrogen 7 Creatinine 0.82 Random Glucose 92 Total Protein 7.4 Albumin 3.6 Calcium Level 8.7 Alkaline Phosphatase 118 Aspartate Amino Transf (AST/SGOT) 15 Alanine Aminotransferase (ALT/SGPT) 14 Total Bilirubin 0.2 Sodium Level 137 Potassium Level 3.6 Chloride Level 105 Carbon Dioxide Level 24.2 Anion Gap 8 Estimat Glomerular Filtration Rate 70 Thyroid Stimulating Hormone 3rd Gen 0.417 Salicylates Level LESS THAN 1.7 Acetaminophen Level LESS THAN 2.0 Ethyl Alcohol Level LESS THAN 3 Urine Color YELLOW Urine Turbidity CLEAR Urine pH 7.0 Urine Specific [place] 1.012 Urine Protein NEG Urine Glucose (UA) NEG Urine Ketones NEG Urine Occult Blood NEG Urine Nitrite NEG Urine Bilirubin NEG Urine Urobilinogen LESS THAN 2.0 Urine Leukocyte Esterase NEG Urine RBC 1 Urine WBC LESS THAN 1 Urine Squamous Epithelial Cells 4 Urine Bacteria RARE Urine Mucus FEW Microscopic Urinalysis Comment CULT NOT INDICATED Urine Opiates Screen NEG Urine Barbiturates Screen NEG Urine Amphetamines Screen NEG Urine Benzodiazepines Screen NEG Urine Cocaine Screen NEG Urine Cannabinoids Screen NEG Result Diagram: 01/30/18 1800 01/30/18 1800 Assessment and Plan Assessment and Plan depression seizure disorder chronic pain meds reviewed anti epileptic meds renewed will give immodium and flourastar for diarrhea and fiornal with codeine for headaches Discussed Condition With patient and Umesh Zimmerman RN, DO Jan 31, 2018 17:00
[2018-01-31 17:26] LABS: BICARBONATE 25.2 MEQ/L (21.0-32.0); BLOOD UREA NITROGEN 5 MG/DL (7-18); CALCIUM 8.7 MG/DL (8.5-10.1); CHLORIDE 105 MEQ/L (98-107); CREATININE 0.64 MG/DL (0.50-1.00); GLOMERULAR FILTRATION RATE 93 ML/MIN (>89); GLUCOSE,RANDOM 100 MG/DL (74-106); SODIUM (NA) 140 MEQ/L (136-145)
[2018-01-31 17:51] LABS: CHOLESTEROL 306 MG/DL (120-200); CHOLESTEROL/ HDL RATIO 5.97 RATIO; HDL CHOLESTEROL 51.2 MG/DL (40.0-60.0); LDL CHOLESTEROL 209 MG/DL (0-99); PHENYTOIN (DILANTIN) 6.3 MCG/ML (10.0-20.0); TRIGLYCERIDES 230 MG/DL (42-150)
[2018-01-31 18:05] VITALS: BP 132/73; PULSE 76; RESP 17; TEMP 97.6; O2SAT 97
[2018-01-31] MEDS: METOPROLOL TARTRATE 25 MG TAB PO SCH (20:51)
[2018-01-31] MEDS: APIXABAN 2.5 MG TABLET PO SCH (20:51)
[2018-01-31] MEDS: cloNIDine HCL 0.1 MG TAB PO SCH (20:53)
[2018-01-31] MEDS: REMOVE OLD NICOTINE PATCH T-DERMAL SCH (21:00)
[2018-01-31] MEDS: PHENYTOIN 50 MG CHEWABLE TAB PO SCH (21:37)
[2018-01-31] MEDS: OXcarbazepine 300 MG TAB PO SCH (21:38)
[2018-01-31 21:43] LABS: HEMOGLOBIN A1C 5.7 % (4.3-6.0)
[2018-02-01] MEDS: LEVOTHYROXINE SODIUM 25 MCG TAB PO SCH (06:25)
[2018-02-01 07:11] VITALS: BP 99/53; PULSE 74; RESP 16; TEMP 98; O2SAT 96
[2018-02-01] MEDS: GABAPENTIN 300 MG CAP PO SCH ×4 (08:32→20:48)
[2018-02-01] MEDS: SERTRALINE HCL 100 MG TAB PO SCH (08:32)
[2018-02-01] MEDS: ASCORBIC ACID 500 MG TAB PO SCH (08:33)
[2018-02-01] MEDS: levETIRAcetam 500 MG TAB PO SCH ×2 (08:33→20:47)
[2018-02-01] MEDS: PANTOPRAZOLE SOD 40 MG DELAYED RELEASE TAB PO SCH (08:33)
[2018-02-01] MEDS: APIXABAN 2.5 MG TABLET PO SCH ×2 (08:34→20:46)
[2018-02-01] MEDS: PHENYTOIN 50 MG CHEWABLE TAB PO SCH ×2 (08:38→20:45)
[2018-02-01] MEDS: OXcarbazepine 300 MG TAB PO SCH ×2 (08:38→20:51)
[2018-02-01] MEDS: LISINOPRIL 10 MG TAB PO SCH (08:39)
[2018-02-01] MEDS: METOPROLOL TARTRATE 25 MG TAB PO SCH ×2 (08:39→20:48)
[2018-02-01] MEDS: NICOTINE 21 MG/24 HR PATCH T-DERMAL SCH (08:44)
[2018-02-01] MEDS: cloNIDine HCL 0.1 MG TAB PO SCH ×2 (08:44→20:44)
--- NOTE | 2018-02-01 12:28 | HHI.PYPN ---
Subjective Remarks Patient seen in my office with her daughter, Radha, and counselor Ileana. Patient also discussed with nurse. Patient compliant medications. Daughter shared with us camera was long history of depression. And manipulation of medication. Patient somewhat regrettably acknowledges this also. Patient does have some insight into her behaviors at times to be overwhelmed by them. There is a histrionic manipulative passive-aggressive dependent feeling with this lady. She continues tearful and depressed feeling that she is being a burden on her family. Or a family is quite supportive and loving of her and interested in her welfare. For now will continue medications no change. Need to work with patient related to arrangements in the community the ventricular successful in her home Review of Systems Except as stated in HPI: all other systems reviewed are Neg Mental Status Examination Appearance: Appropriate Consciousness: Alert Orientation: Person, Place (initially vague), Date/Time (initially vague) Speech: Unremarkable Language: Adequate Fund of Knowledge: Adequate Attention and Concentration: Other (fair) Memory: Impaired Mood: Sad Affect: Other (slight increase range and intensity) Thought Process & Associations: Linear Thought Content: Appropriate Hallucination Type: None Delusion Type: None Suicidal Ideation: Yes (vague) Suicidal Plan: Yes (would overdose on her medication) Suicidal Intention: No Homicidal Ideation: No Homicidal Plan: No Homicidal Intention: No Insight: Adequate Judgment: Adequate Results Labs Test 01/31/18 15:56 01/31/18 16:27 Blood Urea Nitrogen 5 MG/DL Creatinine 0.64 MG/DL Random Glucose 100 MG/DL Calcium Level 8.7 MG/DL Sodium Level 140 MEQ/L Potassium Level 4.2 MEQ/L Chloride Level 105 MEQ/L Carbon Dioxide Level 25.2 MEQ/L Anion Gap 10 MEQ/L Estimat Glomerular Filtration Rate 93 ML/MIN Hemoglobin A1c 5.7 % Triglycerides Level 230 MG/DL Cholesterol Level 306 MG/DL LDL Cholesterol 209 MG/DL HDL Cholesterol 51.2 MG/DL Cholesterol/HDL Ratio 5.97 RATIO Vitamin B12 Level 337 PG/ML Phenytoin (Dilantin) Level 6.3 MCG/ML Vitals/IOs Vital Signs Date Time Temp Pulse Resp B/P (MAP) Pulse Ox O2 Delivery O2 Flow Rate FiO2 02/01/18 07:11 98.0 74 16 99/53 (68) 96 Intake and Output 02/01/18 02/01/18 02/02/18 08:00 16:00 00:00 Intake Total 360 ml Balance 360 ml Assessment & Plan Problem List: (1) Major depressive disorder, recurrent severe without psychotic features ICD Codes: F33.2 - Major depressive disorder, recurrent severe without psychotic features Assessment & Plan Estimated LOS: days patient continues depressed vaguely suicidal though she denies it. Also minimizes the extent of for depression. For now continue treatment Justification for Cont. Inpt. At this time patient will decompensate or placement lower level of care Discharge Planning Hopefully to [id number] home Request HC Surrog/Guard Advoc?: No Cosmo Morris MD Feb 01, 2018 12:28
--- NOTE | 2018-02-01 20:27 | MG ---
cc: Harjinder Del Castillo MD EEG NUMBER: [id number] INDICATION: EEG from March of 2 years ago showed occasional left sharps. Under [place] Act for suicidal ideation. Trileptal, Neurontin, Dilantin, Keppra, Zoloft. DESCRIPTION: A 7 Hz posterior and diffuse rhythm is seen. Bifrontal muscle artifact is noted. She falls asleep with some stage II sleep. No epileptiform or seizure activity is noted. Photic stimulation is performed. At epoch 108, there is phase reversing sharply contoured alpha wave without a very large field. She was noted to be asleep right before that and in fact reaches stage II sleep. Again, some prominent alpha waves are seen over the left temporal head region but no spikes are noted. No prolonged seizure activity is seen. Photic stimulation performed without significant posterior driving. IMPRESSION: A few prominent sharply contoured alpha waves are seen up to about 100 microvolts over the left temporal head region during sleep. Whether this is a sleep variant or this is a focal abnormality, there is hard to say. Clinical correlation is needed. No seizures were noted throughout this recording; however, a left temporal abnormality should be ruled out and there has been some slight left temporal abnormalities on past EEGs also. MD MISHA Del Castillo/INEZ , 08:15 PM , 08:26 PM
[2018-02-01 20:30] VITALS: BP 120/59; PULSE 85; RESP 24; TEMP 97.8; O2SAT 97
[2018-02-01] MEDS: REMOVE OLD NICOTINE PATCH T-DERMAL SCH (21:00)
[2018-02-01 21:42] VITALS: BP 120/59; PULSE 85; RESP 24; TEMP 97.8; O2SAT 97
[2018-02-01] MEDS: diphenhydrAMINE HCL 50 MG CAP - HS PRN PO (22:19)
[2018-02-01] MEDS: ACETAMINOPHEN 325 MG TAB PO PRN (22:20)
[2018-02-02] MEDS: ACETAMINOPHEN 325 MG TAB PO PRN (06:01)
[2018-02-02] MEDS: LEVOTHYROXINE SODIUM 25 MCG TAB PO SCH (06:02)
[2018-02-02 06:15] VITALS: BP 138/67; PULSE 69; RESP 16; TEMP 98; O2SAT 95
[2018-02-02] MEDS: GABAPENTIN 300 MG CAP PO SCH ×4 (08:05→20:01)
[2018-02-02] MEDS: levETIRAcetam 500 MG TAB PO SCH ×2 (08:05→20:01)
[2018-02-02] MEDS: OXcarbazepine 300 MG TAB PO SCH ×2 (08:06→20:00)
[2018-02-02] MEDS: PHENYTOIN 50 MG CHEWABLE TAB PO SCH ×2 (08:06→20:00)
[2018-02-02] MEDS: ASCORBIC ACID 500 MG TAB PO SCH (08:06)
[2018-02-02] MEDS: PANTOPRAZOLE SOD 40 MG DELAYED RELEASE TAB PO SCH (08:06)
[2018-02-02] MEDS: cloNIDine HCL 0.1 MG TAB PO SCH ×2 (08:06→20:01)
[2018-02-02] MEDS: APIXABAN 2.5 MG TABLET PO SCH ×2 (08:06→20:00)
[2018-02-02] MEDS: LISINOPRIL 10 MG TAB PO SCH (08:07)
[2018-02-02] MEDS: SERTRALINE HCL 100 MG TAB PO SCH (08:07)
[2018-02-02] MEDS: METOPROLOL TARTRATE 25 MG TAB PO SCH ×2 (08:07→20:01)
[2018-02-02] MEDS: NICOTINE 21 MG/24 HR PATCH T-DERMAL SCH (08:11)
--- NOTE | 2018-02-02 09:24 | RADRPT ---
EXAM DATE/TIME: 02/02/2018 08:46 [facility] COMPARISON: CT BRAIN W/O CONTRAST, September 16, 2017, 21:48. INDICATIONS : Cephalgia. CVA. MEDICAL HISTORY : Arthritis. SURGICAL HISTORY : Coronary artery stent. Colon resection. IVC Filter placement. Cholecystectomy, Right knee replacement , right ankle ORIF. ENCOUNTER: Initial ACUITY: 1 day PAIN SCORE: 5/10 LOCATION: cranial TECHNIQUE: Multiplanar, multisequence MRI of the brain was performed without contrast. FINDINGS: CEREBRUM: Focal encephalomalacia characteristic of a small old infarct is again noted in the left occipital lob e. Cerebral hemispheres are otherwise unremarkable. There are no findings characteristic of an acute infarct or hemorrhage. There is no evidence of mass effect WHITE MATTER: T2 hyperintense foci scattered throughout the cerebral white matter. POSTERIOR FOSSA: The cerebellum and brainstem are intact. The 4th ventricle is midline. The cerebellopontine angle is unremarkable. The cerebellar tonsils are normal in position. DIFFUSION IMAGING: No focal areas of restricted diffusion are seen. No evidence of acute infarction. EXTRACRANIAL: The visualized portions of the orbits and paranasal sinuses are unremarkable. CONCLUSION: 1. No evidence of acute infarct, hemorrhage, mass or edema. 2. Mild cerebral white matter disease characteristic of chronic microvascular ischemic changes. 3. Old small infarct left occipital lobe is again noted. Philipp Padgett MD on February 02, 2018 at 9:19 Board Certified Radiologist. This report was verified electronically.
[2018-02-02] MEDS ORDERED: ONDANSETRON HCL 4 MG/5 ML UDC PO PRN (11:15)
--- NOTE | 2018-02-02 11:24 | HHI.PR ---
Subjective Remarks She tells me she is still having nausea but diarrhea is better. Objective Vital Signs Date Time Temp Pulse Resp B/P (MAP) Pulse Ox O2 Delivery O2 Flow Rate FiO2 02/02/18 06:15 98.0 69 16 138/67 (90) 95 02/01/18 20:30 97.8 85 24 120/59 (79) 97 I/O 02/01/18 02/01/18 02/01/18 02/02/18 02/02/18 02/02/18 07:00 15:00 23:00 07:00 15:00 23:00 Intake Total 360 ml 340 ml 600 ml Balance 360 ml 340 ml 600 ml Intake Oral 360 ml 340 ml 600 ml # Voids 1 3 1 Result Diagram: 01/30/18 1800 01/31/18 1627 Imaging Last Impressions Brain MRI 02/02/18 0000 Signed Impressions: Service Date/Time: Friday, February 02, 2018 08:46 - CONCLUSION: 1. No evidence of acute infarct, hemorrhage, mass or edema. 2. Mild cerebral white matter disease characteristic of chronic microvascular ischemic changes. 3. Old small infarct left occipital lobe is again noted. Philipp Padgett MD Objective Remarks HEENT - AT/NC Resp - CTA CV - RRR without rub or gallop Abd - soft and nontender with active BS Neuro - depressed, but alert and oriented MS - FROM without deformity Medications and IVs Current Medications Medications (Trade) Dose Ordered Sig/Rodney Route Start Time Stop Time Status Last Admin (Ativan) 0.5 mg Q12H PRN PO 01/30/18 22:00 (Ativan Inj) 0.5 mg Q12H PRN IM 01/30/18 22:00 (Benadryl) 50 mg HS PRN PO 01/30/18 22:00 02/01/18 22:19 (Benadryl Inj) 50 mg HS PRN IM 01/30/18 22:00 (Tylenol) 650 mg Q4H PRN PO 01/30/18 22:00 02/02/18 06:01 (Milk Of Magnesia Liq) 30 ml DAILY PRN PO 01/30/18 22:00 (Mag-Al Plus Susp Liq) 30 ml Q6H PRN PO 01/30/18 22:00 (Habitrol 21 Mg Patch.24 Hr) 1 patch DAILY T-DERMAL 3/8/18 09:00 Miscellaneous Information 1 HS T-DERMAL 01/31/18 21:00 (Keppra) 1,500 mg BID PO 01/31/18 09:00 02/02/18 08:05 (Zofran Odt) 4 mg Q8H PRN SL 01/30/18 23:00 02/01/18 08:44 (Vitamin C) 500 mg DAILY PO 01/31/18 09:00 02/02/18 08:06 (Tylenol) 325 mg Q4H PRN PO 01/31/18 11:00 (Eliquis) 2.5 mg BID PO 01/31/18 21:00 02/02/18 08:06 (Catapres) 0.1 mg BID PO 01/31/18 21:00 02/02/18 08:06 (Neurontin) 300 mg QID PO 01/31/18 13:00 02/02/18 08:05 (Synthroid) 25 mcg DAILY@0600 PO 02/01/18 06:00 02/02/18 06:02 (Lopressor) 25 mg BID PO 01/31/18 21:00 02/02/18 08:07 (Trileptal) 450 mg BID PO 01/31/18 21:00 02/02/18 08:06 (Protonix) 40 mg DAILY PO 02/01/18 09:00 02/02/18 08:06 (Dilantin Infatabs Chew) 150 mg BID PO 01/31/18 21:00 02/02/18 08:06 (Zoloft) 100 mg DAILY PO 02/01/18 09:00 02/02/18 08:07 (Prinivil) 30 mg DAILY PO 02/01/18 09:00 02/02/18 08:07 (Pill Splitter) 1 ea UNSCH PRN OTHER 01/31/18 11:45 Assessment and Plan Problem List: (1) Seizure ICD Codes: R56.9 - Unspecified convulsions Status: Chronic Plan: F/U pending levels (2) Major depression, recurrent, chronic ICD Codes: F33.9 - Chronic major depressive disorder, recurrent episode Status: Acute Plan: Cont plan per psych (3) Nausea & vomiting ICD Codes: R11.2 - Nausea and vomiting Status: Acute Plan: Change to liquid Zofran as she doesn't like the taste of OTD product. Assessment and Plan Cont plan per psych. Cont antiemetic and florastor as diarrhea has improved overnight. Discussed Condition With Patient Discharge Planning Home Problem Qualifiers (1) Nausea & vomiting: Qualified Codes: R11.2 - Nausea with vomiting, unspecified Cali Sanchez Feb 02, 2018 11:24
--- NOTE | 2018-02-02 11:34 | HHI.PYPN ---
Subjective Remarks Pt seen and discussed with staff. She remains depressed and expressed to RN thoughts of overdosing at home. She states to MD that she is hoping she dies, but denies active suicde plan. She is compliant with medications and denies side effects. Mental Status Examination Appearance: Appropriate Consciousness: Alert Orientation: Person, Place, Date/Time Speech: Unremarkable Language: Adequate Fund of Knowledge: Adequate Attention and Concentration: Other (fair) Memory: Impaired (fair) Mood: Sad Affect: Other (slight increase range and intensity) Thought Process & Associations: Linear Thought Content: Appropriate Hallucination Type: None Delusion Type: None Suicidal Ideation: Yes (vague) Suicidal Plan: Yes (would overdose on her medication) Suicidal Intention: No Homicidal Ideation: No Homicidal Plan: No Homicidal Intention: No Insight: Adequate Judgment: Adequate Results Vitals/IOs Vital Signs Date Time Temp Pulse Resp B/P (MAP) Pulse Ox O2 Delivery O2 Flow Rate FiO2 02/02/18 06:15 98.0 69 16 138/67 (90) 95 Assessment & Plan Problem List: (1) Major depressive disorder, recurrent severe without psychotic features ICD Codes: F33.2 - Major depressive disorder, recurrent severe without psychotic features Assessment & Plan Continue current tx plan. Continue hospitalization for safety. Estimated LOS: days Justification for Cont. Inpt. impairments in safety Request HC Surrog/Guard Advoc?: Tonya Springer MD Feb 02, 2018 11:34
[2018-02-02] MEDS ORDERED: ACETAMINOPHEN 325 MG TAB PO PRN (13:30)
[2018-02-02] MEDS: ARTIFICIAL TEARS OPTH SOLN 15 ML BTL EACH EYE SCH ×4 (14:00→20:01)
[2018-02-02] MEDS: ASPIRIN 325 MG/CAFFEINE 40 MG/BUTALBITAL 50 MG CAP PO PRN ×2 (17:14→20:51)
[2018-02-02 18:08] VITALS: BP 142/70; PULSE 69; RESP 18; TEMP 97.4; O2SAT 99
[2018-02-02] MEDS: diphenhydrAMINE HCL 50 MG CAP - HS PRN PO (19:59)
[2018-02-02] MEDS: REMOVE OLD NICOTINE PATCH T-DERMAL SCH (20:01)
[2018-02-03] MEDS: ARTIFICIAL TEARS OPTH SOLN 15 ML BTL EACH EYE SCH ×6 (01:29→20:04)
[2018-02-03] MEDS: LEVOTHYROXINE SODIUM 25 MCG TAB PO SCH (05:55)
[2018-02-03] MEDS: ASPIRIN 325 MG/CAFFEINE 40 MG/BUTALBITAL 50 MG CAP PO PRN ×3 (06:01→20:03)
[2018-02-03 06:09] VITALS: BP 143/66; PULSE 64; RESP 16; TEMP 97.7; O2SAT 97
[2018-02-03] MEDS: METOPROLOL TARTRATE 25 MG TAB PO SCH ×2 (08:54→20:02)
[2018-02-03] MEDS: OXcarbazepine 300 MG TAB PO SCH ×2 (08:54→20:03)
[2018-02-03] MEDS: levETIRAcetam 500 MG TAB PO SCH ×2 (08:54→20:02)
[2018-02-03] MEDS: PANTOPRAZOLE SOD 40 MG DELAYED RELEASE TAB PO SCH (08:54)
[2018-02-03] MEDS: GABAPENTIN 300 MG CAP PO SCH ×4 (08:54→20:03)
[2018-02-03] MEDS: ASCORBIC ACID 500 MG TAB PO SCH (08:55)
[2018-02-03] MEDS: PHENYTOIN 50 MG CHEWABLE TAB PO SCH ×2 (08:55→20:03)
[2018-02-03] MEDS: LISINOPRIL 10 MG TAB PO SCH (08:55)
[2018-02-03] MEDS: cloNIDine HCL 0.1 MG TAB PO SCH ×2 (08:55→20:02)
[2018-02-03] MEDS: NICOTINE 21 MG/24 HR PATCH T-DERMAL SCH (08:55)
[2018-02-03] MEDS: APIXABAN 2.5 MG TABLET PO SCH ×2 (08:55→20:03)
[2018-02-03] MEDS: SERTRALINE HCL 100 MG TAB PO SCH (08:55)
--- NOTE | 2018-02-03 10:26 | HHI.PR ---
Subjective Remarks She tells me she is doing better with Fiorinal for pain but is requesting Voltaren gel for neck pain. . Objective Vital Signs Date Time Temp Pulse Resp B/P (MAP) Pulse Ox O2 Delivery O2 Flow Rate FiO2 02/03/18 06:09 97.7 64 16 143/66 (91) 97 02/02/18 18:08 97.4 69 18 142/70 (94) 99 I/O 02/02/18 02/02/18 02/02/18 02/03/18 02/03/18 02/03/18 07:00 15:00 23:00 07:00 15:00 23:00 Intake Total 600 ml 860 ml 1080 ml 240 ml 360 ml Balance 600 ml 860 ml 1080 ml 240 ml 360 ml Intake Oral 600 ml 860 ml 1080 ml 240 ml 360 ml # Voids 1 4 1 1 Result Diagram: 01/30/18 1800 01/31/18 1627 Objective Remarks HEENT - AT/NC Resp - CTA CV - RRR without rub or gallop Abd - soft and mild tenderness to deep palpation with active BS Neuro - depressed, but alert and oriented MS - no edema Medications and IVs Current Medications Medications (Trade) Dose Ordered Sig/Rodney Route Start Time Stop Time Status Last Admin (Ativan) 0.5 mg Q12H PRN PO 01/30/18 22:00 (Ativan Inj) 0.5 mg Q12H PRN IM 01/30/18 22:00 (Benadryl) 50 mg HS PRN PO 01/30/18 22:00 02/02/18 19:59 (Benadryl Inj) 50 mg HS PRN IM 01/30/18 22:00 (Milk Of Magnesia Liq) 30 ml DAILY PRN PO 01/30/18 22:00 (Mag-Al Plus Susp Liq) 30 ml Q6H PRN PO 01/30/18 22:00 (Habitrol 21 Mg Patch.24 Hr) 1 patch DAILY T-DERMAL 01/31/18 09:00 Miscellaneous Information 1 HS T-DERMAL 01/31/18 21:00 (Keppra) 1,500 mg BID PO 01/31/18 09:00 02/03/18 08:54 (Zofran Odt) 4 mg Q8H PRN SL 01/30/18 23:00 02/01/18 08:44 (Vitamin C) 500 mg DAILY PO 01/31/18 09:00 02/03/18 08:55 (Tylenol) 325 mg Q4H PRN PO 01/31/18 11:00 (Eliquis) 2.5 mg BID PO 01/31/18 21:00 02/03/18 08:55 (Catapres) 0.1 mg BID PO 01/31/18 21:00 02/03/18 08:55 (Neurontin) 300 mg QID PO 01/31/18 13:00 02/03/18 08:54 (Synthroid) 25 mcg DAILY@0600 PO 02/01/18 06:00 02/03/18 05:55 (Lopressor) 25 mg BID PO 01/31/18 21:00 02/03/18 08:54 (Trileptal) 450 mg BID PO 01/31/18 21:00 02/03/18 08:54 (Protonix) 40 mg DAILY PO 02/01/18 09:00 02/03/18 08:54 (Dilantin Infatabs Chew) 150 mg BID PO 01/31/18 21:00 02/03/18 08:55 (Zoloft) 100 mg DAILY PO 02/01/18 09:00 02/03/18 08:55 (Prinivil) 30 mg DAILY PO 02/01/18 09:00 02/03/18 08:55 (Pill Splitter) 1 ea UNSCH PRN OTHER 01/31/18 11:45 02/02/18 19:59 (Fiorinal 325-40-50) 1 cap Q4H PRN PO 02/02/18 11:15 02/03/18 09:29 (Zofran Liq) 4 mg Q4H PRN PO 02/02/18 11:15 02/03/18 09:29 (Tears Naturale Opth Soln) 1 drop Q4H EACH EYE 02/02/18 14:00 02/03/18 09:02 (Tylenol) 650 mg Q4H PRN PO 02/02/18 13:30 02/02/18 19:38 Assessment and Plan Problem List: (1) Major depression, recurrent, chronic ICD Codes: F33.9 - Chronic major depressive disorder, recurrent episode Status: Acute Plan: Cont plan per psych (2) Nausea & vomiting ICD Codes: R11.2 - Nausea and vomiting Status: Acute Plan: Changed to liquid Zofran as she doesn't like the taste of OTD product and nausea improved. (3) Seizure ICD Codes: R56.9 - Unspecified convulsions Status: Chronic Plan: No seizures reported on the current anticonvulsant regimen (4) Neck pain ICD Codes: M54.2 - Cervicalgia Status: Chronic Plan: She requested Voltaren Gel but it is not available from the pharmacy so I ordered lidocaine patch. Assessment and Plan Cont plan per psych. Cont antiemetic and florastor as diarrhea has resolved and nausea improved Discussed Condition With patient and RN Problem Qualifiers (1) Nausea & vomiting: Qualified Codes: R11.2 - Nausea with vomiting, unspecified Cali Sanchez Feb 03, 2018 10:26
--- NOTE | 2018-02-03 16:34 | HHI.PYPN ---
Subjective Remarks Pt seen and discussed with staff. She remains depressed and dysphoric. She initially refused medications today ("What's the point?") but did comply with them with RN encouragement. This afternoon she did come out of her room and engaged in a unit activity. Mental Status Examination Appearance: Appropriate Consciousness: Alert Orientation: Person, Place, Date/Time Speech: Unremarkable Language: Adequate Fund of Knowledge: Adequate Attention and Concentration: Other (fair) Memory: Impaired (fair) Mood: Sad Affect: Other (slight increase range and intensity) Thought Process & Associations: Linear Thought Content: Appropriate Hallucination Type: None Delusion Type: None Suicidal Ideation: Yes (vague) Suicidal Plan: Yes (would overdose on her medication) Suicidal Intention: No Homicidal Ideation: No Homicidal Plan: No Homicidal Intention: No Insight: Adequate Judgment: Adequate Results Vitals/IOs Vital Signs Date Time Temp Pulse Resp B/P (MAP) Pulse Ox O2 Delivery O2 Flow Rate FiO2 02/03/18 06:09 97.7 64 16 143/66 (91) 97 Intake and Output 02/03/18 02/03/18 02/04/18 08:00 16:00 00:00 Intake Total 240 ml 600 ml Balance 240 ml 600 ml Assessment & Plan Problem List: (1) Major depressive disorder, recurrent severe without psychotic features ICD Codes: F33.2 - Major depressive disorder, recurrent severe without psychotic features Assessment & Plan Continue current tx plan. Estimated LOS: days Justification for Cont. Inpt. impairments for safety Request HC Surrog/Guard Advoc?: No Tonya Bahena MD Feb 03, 2018 16:34
[2018-02-03 18:16] VITALS: BP 110/61; PULSE 60; RESP 16; TEMP 98.1; O2SAT 100
[2018-02-03] MEDS: diphenhydrAMINE HCL 50 MG CAP - HS PRN PO (20:03)
[2018-02-03] MEDS: REMOVE OLD NICOTINE PATCH T-DERMAL SCH (20:03)
[2018-02-04] MEDS: ARTIFICIAL TEARS OPTH SOLN 15 ML BTL EACH EYE SCH ×3 (01:01→10:00)
[2018-02-04] MEDS: LEVOTHYROXINE SODIUM 25 MCG TAB PO SCH (05:24)
[2018-02-04] MEDS: ASPIRIN 325 MG/CAFFEINE 40 MG/BUTALBITAL 50 MG CAP PO PRN ×2 (05:24→08:50)
[2018-02-04 05:46] VITALS: BP 133/63; PULSE 63; RESP 16; TEMP 97.7; O2SAT 100
[2018-02-04] MEDS: PHENYTOIN 50 MG CHEWABLE TAB PO SCH (08:42)
[2018-02-04] MEDS: levETIRAcetam 500 MG TAB PO SCH (08:42)
[2018-02-04] MEDS: OXcarbazepine 300 MG TAB PO SCH (08:43)
[2018-02-04] MEDS: APIXABAN 2.5 MG TABLET PO SCH (08:43)
[2018-02-04] MEDS: LISINOPRIL 10 MG TAB PO SCH (08:43)
[2018-02-04] MEDS: GABAPENTIN 300 MG CAP PO SCH (08:43)
[2018-02-04] MEDS: ASCORBIC ACID 500 MG TAB PO SCH (08:43)
[2018-02-04] MEDS: METOPROLOL TARTRATE 25 MG TAB PO SCH (08:43)
[2018-02-04] MEDS: SERTRALINE HCL 100 MG TAB PO SCH (08:44)
[2018-02-04] MEDS: cloNIDine HCL 0.1 MG TAB PO SCH (08:44)
[2018-02-04] MEDS: PANTOPRAZOLE SOD 40 MG DELAYED RELEASE TAB PO SCH (08:44)
[2018-02-04] MEDS: NICOTINE 21 MG/24 HR PATCH T-DERMAL SCH (08:55)
[2018-02-04] MEDS ORDERED: LIDOCAINE HCL 5% PATCH T-DERMAL SCH (09:00)
--- NOTE | 2018-02-04 10:07 | PD.TTN ---
Patient Problems 1. Discharge planning 2. Medication compliance 3. Knowledge deficit 4. Lack of coping skills Progress Toward Goals Provider Present: Dr. Melania Morris Provider Input: 02/04/18 familiar from past and ongoing depression and serious suicide note written last week, but if good weekend possible discharge home today Nurse(s) Input: 02/04/18 [place]: med compliant and slept well Psychiatric Counselors Present: Ileana Guerrero LCSW Psych Therapist Input: 02/04/18 patient has been stating this weekend she would like to go home, she has some insight to her depression and her medications but tends to be attention seeking and has unstable relationship with her children that trigger her emotionally, she feels she will be safe to be home and denies any suicidal plan today but still some ideation, she has services in the home: C and an aide Group Spec/RT/OT/SANON Present: [facility] Spec/RT/OT/SANON Input: 02/04/18 attends some groups and appears social Documentation Teaching Recipient: Patient Ileana Guerrero LCSW Feb 04, 2018 10:07
[2018-02-04] MEDS ORDERED: METO25TA3 PO (12:49)
[2018-02-04] MEDS ORDERED: DILA100C PO (12:49)
[2018-02-04] MEDS ORDERED: FIORINAL2 PO (12:49)
[2018-02-04] MEDS ORDERED: LEVO25TA4 PO (12:49)
[2018-02-04] MEDS ORDERED: APIX2.5T PO (12:49)
[2018-02-04] MEDS ORDERED: GABA300C5 PO (12:49)
[2018-02-04] MEDS ORDERED: OXCA300T PO (12:49)
[2018-02-04] MEDS ORDERED: PROT40TA PO (12:49)
[2018-02-04] MEDS ORDERED: LIDO1ADH4 T-DERMAL (12:49)
[2018-02-04] MEDS ORDERED: CLON0.1T PO (12:49)
[2018-02-04] MEDS ORDERED: LEVE500T8 PO (12:49)
[2018-02-04] MEDS ORDERED: ZOLO100T PO (12:49)
[2018-02-04] MEDS ORDERED: LISI30TA4 PO (12:49)
[2018-02-04] MEDS ORDERED: POLY99.0 EACH EYE (12:49)
--- NOTE | 2018-02-04 12:59 | HHI.DS ---
Psychiatry Discharge Summary Inpatient Psychiatric care?: Yes Advance Directive: Yes Mental Health AdvanceDirective: No Health Care Proxy: No Admission Admission Date Jan 30, 2018 at 21:34 Admission Diagnosis: (1) Major depressive disorder, recurrent severe without psychotic features ICD Code: F33.2 - Major depressive disorder, recurrent severe without psychotic features Brief History Patient came to the emergency department under Lopez act signed by the [facility] Department dated 3 06/12/1650 p.m. that documented reviewed initially stated: Bottle was with a health care provider in her apartment when she informed them that she did not want to live any longer upon arrival of suicide letter was found with numerous pill bottles by Ms. Hernandez. Ms. Hernandez stated she is tired and cannot be in pain any longer David stated her grandchildren are patent to look after her and don't show up. David was intending on ending her life. Patient seen screened and medically cleared in ED urine toxicology negative blood alcohol negative. At the present time patient initially sitting quietly in her bed is noted she has a right AK amputation. She did easily transfer herself to her wheelchair. Of note I did care for this patient for an extended period of time in our now closed outpatient mental health clinic here at [facility]. The clinic closed in November 2016. Patient had been doing fairly well. It appears since then she has had multiple traumatic episodes including her right knee replacement becoming septic leading to multiple surgical revisions and the AK amputation. She developed acute sepsis leading to renal failure and the need for temporary dialysis. More recently she suffered a stroke was hospitalized for that. She does have some residual short-term memory issues though her speech is overall goal oriented and focused she has little difficulty with date time and location. Patient states the depressed mood and crying episodes. That her mood is more labile. She says her sleep is very poor it is repeatedly interrupted. Her appetite has diminished. She is quite depressed. With increased suicidal ideation and the plan to overdose on her multiple medications. She denies voices or visions with this. Denies alcohol or other drug use. She did speak with patient's daughter "Radha" who is a nurse here at [facility] will meet with her tomorrow morning at about 9:30 along with her mother to discuss this admission and goals of the admission. At this time patient does meet criteria under the Lopez act for involuntary psychiatric hospitalization I'll do first opinion request second opinion. Of interest patient suicide note is quite detailed and in the chart for perusal. I feel patient is a capacity to sign for medications will continue medications per the med reconciliation. We'll have Dr. Barrett her primary care physician consult will thus, we'll have Dr. Dias her neurologist also consult with us. Patient is Jewish she was stressed us to have a painter helper, personal counselor her. Also have PT and OT assess this lady. Long-term placement may be something frustrated consider Tobacco Use In Past 30 Days: No Tobacco Past 30 Days Alcohol Use: Monthly or Less Hospital Course Patient's hospital course was uneventful, she showed no significant behavioral problems, though the some friction between she and her daughter was a family meeting last week. She been compliant with her medications. Has been calm cooperative. Now denies suicidality homicidality voices or visions. States she feels safe going home at this time with her medications on with home health care referral. Thus patient will be discharged today Rx 1 month follow-up home health care and private clinician Results Blood Pressure 133 / 63 Vital Signs Date Time Temp Pulse Resp B/P (MAP) Pulse Ox O2 Delivery O2 Flow Rate FiO2 02/04/18 05:46 97.7 63 16 133/63 (86) 100 Laboratory Results Test 01/31/18 16:27 Cholesterol Level 306 MG/DL (120-200) HDL Cholesterol 51.2 MG/DL (40.0-60.0) Hemoglobin A1c 5.7 % (4.3-6.0) LDL Cholesterol 209 MG/DL (0-99) Triglycerides Level 230 MG/DL (42-150) Summary of Procedures None done Imaging Last Impressions Brain MRI 02/02/18 0000 Signed Impressions: Service Date/Time: Friday, February 02, 2018 08:46 - CONCLUSION: 1. No evidence of acute infarct, hemorrhage, mass or edema. 2. Mild cerebral white matter disease characteristic of chronic microvascular ischemic changes. 3. Old small infarct left occipital lobe is again noted. Philipp Padgett MD Pending results at discharge: No Medications # of Antipsychotic meds at D/C: 0 Approp Antipsych med options 1 - Minimum of three failed multiple trials of monotherapy. 2 - Documented plan to taper to monotherapy due to previous use of multiple meds OR cross-taper in progress at D/C. 3 - Documentation of augmentation of Clozapine. 4 - Justification other than those listed in allowable values 1-3, document here : Discharge Discharge Date: Feb 04, 2018 Discharge Diagnosis: (1) Major depressive disorder, recurrent severe without psychotic features Diagnosis: Principal ICD Code: F33.2 - Major depressive disorder, recurrent severe without psychotic features Pt Condition on Discharge: Stable Discharge Disposition: Discharge Home Discharge Instructions Diet Instructions: As Tolerated, No Restrictions Activities you can perform: Regular-No Restrictions Scheduled Appointment: Arti Kaplan Discharge Time > 30 minutes Mental Status Examination Appearance: Appropriate Consciousness: Alert Orientation: Person, Place, Date/Time Speech: Unremarkable Language: Adequate Fund of Knowledge: Adequate Attention and Concentration: Other (fair) Memory: Impaired (fair) Mood: Sad Affect: Other (slight increase range and intensity) Thought Process & Associations: Linear Thought Content: Appropriate Hallucination Type: None Delusion Type: None Suicidal Ideation: Yes (vague) Suicidal Plan: Yes (would overdose on her medication) Suicidal Intention: No Homicidal Ideation: No Homicidal Plan: No Homicidal Intention: No Insight: Adequate Judgment: Adequate Discharge/Advance Care Plan Health Problems: (1) Major depressive disorder, recurrent severe without psychotic features Goals to promote your health * To prevent worsening of your condition and complications * To maintain your health at the optimal level Directions to meet your goals Take your medications as prescribed Follow your dietary instruction Follow activity as directed Keep your appointments as scheduled Take your immunizations and boosters as scheduled If your symptoms worsen call your PCP, if no PCP go to Urgent Care Center or Emergency Room For 18/06 questions related to your inpatient stay or results of tests pending at discharge, please contact Dr. Cosmo Morris at Smoking is Dangerous to Your Health. Avoid second hand smoking Cosmo Morris MD Feb 04, 2018 12:59
== END 2018-02-04 14:50 | disposition home or self-care (01) | DRG 885 ==
LOC: NEDAMB 17:05 → NEDA 21:34 → H250 22:07
PROVIDERS: ADMIT Psychiatry & Neurology Psychiatry; ATTEND Psychiatry & Neurology Psychiatry
DX: F33.2 Major depressive disorder, recurrent severe without psychotic features (principal); R45.851 Suicidal ideations; G40.909 Epilepsy, unspecified, not intractable, without status epilepticus; J44.9 Chronic obstructive pulmonary disease, unspecified; Z89.611 Acquired absence of right leg above knee; F41.9 Anxiety disorder, unspecified; G89.29 Other chronic pain; R19.7 Diarrhea, unspecified; R51 Headache; R11.2 Nausea with vomiting, unspecified; M54.2 Cervicalgia; I25.10 Atherosclerotic heart disease of native coronary artery without angina pectoris; E78.00 Pure hypercholesterolemia, unspecified; G31.84 Mild cognitive impairment of uncertain or unknown etiology; M19.90 Unspecified osteoarthritis, unspecified site; K21.9 Gastro-esophageal reflux disease without esophagitis; Z86.73 Personal history of transient ischemic attack (TIA), and cerebral infarction without residual deficits; Z86.14 Personal history of Methicillin resistant Staphylococcus aureus infection; Z99.3 Dependence on wheelchair; Z79.01 Long term (current) use of anticoagulants; Z95.5 Presence of coronary angioplasty implant and graft
CPT/HCPCS: 70551; 80048; 80053; 80061; 80183; 80185; 80307; 81001; 82607; 83036; 84443; 85025; 86592; 95819; 96372; J1170; J2060; Q0163

== ENCOUNTER 2018-02-07 14:56 | Inpatient (IN) | payer MEDICARE, MEDICAID ==
[~2018-02-07] VITALS: Ht 167.6 cm; Wt 71.1 kg
[~2018-02-07 14:56] MED LIST changes: -DICL1GEL7 TOPICAL; +DILA100C PO; -FERR325T18 PO; +FIORINAL2 PO; -GABA100C4 PO; +GABA300C5 PO; -GABA600T PO; -IBUP200T47 PO; -LEVE250 PO; +LIDO1ADH4 T-DERMAL; -LIDO5%T TOPICAL; -LISI-515 PO; +LISI30TA4 PO; +LOPE2CAP PO; -MELA5 PO; -METO1TAB42 PO; -MILKSUS PO; -PERC5TAB12 PO; -PHEN100C PO; -POLY17S PO; +POLY99.0 EACH EYE; -PRED10 PO; -SERO100T PO; -TRAM50 PO; -TRAZ100T10 PO; -VITA1000 PO; -VITA1CAP7; -VITA250C3 CHEW; -ZOLO50TA PO
[2018-02-07 15:00] VITALS: BP 128/59; PULSE 85; RESP 17; TEMP 98.6; O2SAT 96
--- NOTE | 2018-02-07 15:25 | PD ---
HPI Chief Complaint: Altered mental status Time Seen by Provider: 15:07 Travel History International Travel<30 days: No Contact w/Intl Traveler<30days: No History of Present Illness HPI 67yo F with PMH of major depressive disorder, seizure on keppra, chronic pain, gastroparesis, CVA was brought in by [facility] for altered mental status. Pt lives in independent living and has a health aid who said that pt was talking to her at 2:20pm and all of a sudden would not talk to her. Fire called a stroke alert. However, on her way here, [facility] said she was talking to them. Pt has right AKA and normally has left lower extremity weakness and is wheelchair bound. They have transported her multiple times before sometimes she would talk and sometimes not. Pt is speaking in the ED and said her name, said he is dizzy and has abdominal pain. She was just discharge from psych unit after admission from 01/30/18-02/04/18. PFSH Past Medical History Hx Anticoagulant Therapy: Yes (ELIQUIS) Anemia: Yes Arthritis: Yes Asthma: Yes Autoimmune Disease: No Blood Disorders: No Anxiety: Yes Depression: Yes Heart Rhythm Problems: Yes (SVT ) Cancer: No Cardiac Catheterization: Yes (X2) Cardiovascular Problems: Yes High Cholesterol: Yes Chemotherapy: Yes Chest Pain: Yes Congestive Heart Failure: Yes COPD: Yes Cerebrovascular Accident: Yes (X 4) Coronary Artery Disease: Yes Diabetes: No Diminished Hearing: No Deep Vein Thrombosis: Yes (PE, DVT) Endocrine: Yes Gastrointestinal Disorders: Yes (GASTROPARESIS) GERD: Yes Gout: Yes Genitourinary: No Headaches: Yes Hiatal Hernia: No Hypertension: Yes Immune Disorder: No Implanted Vascular Access Dvce: Yes (HX OF PORT) Kidney Stones: No Musculoskeletal: Yes (arthritis) Neurologic: Yes (4 CVA's and seizure) Psychiatric: Yes Reproductive: No Respiratory: Yes Integumentary: Yes (HX OF MRSA) Immunizations Current: No Migraines: Yes Pancreatitis: Yes Radiation Therapy: No Renal Failure: No Seizures: Yes Sickle Cell Disease: No Sleep Apnea: No Thyroid Disease: Yes (HYPO) Ulcer: Yes PNEUMOCCOCAL Vaccine (Year): 2008 Menopausal: Yes : 6 Para: 3 Miscarriage: 3 Ovarian Cysts: Yes Past Surgical History Abdominal Surgery: Yes (COLON RESECTION, G TUBE PLACEMENT) AICD: No Appendectomy: Yes Arteriovenous Shunt: No Body Medical Devices: total knee replacement Cardiac Surgery: Yes Section: Yes (1) Cholecystectomy: Yes Coronary Stent: Yes Ear Surgery: No Endocrine Surgery: No Eye Surgery: No Genitourinary Surgery: No Gynecologic Surgery: Yes () Hysterectomy: Yes Insulin Pump: No Joint Replacement: Yes (R ANKLE, R TOTAL KNEE May,) Neurologic Surgery: No Oral Surgery: Yes Pacemaker: No Thoracic Surgery: Yes Tonsillectomy: Yes (T&A) Other Surgery: Yes (IVC filter ) Family History Family Hypercholesterolemia: Yes Social History Alcohol Use: No Tobacco Use: No Substance Use: No Allergies-Medications (Allergen,Severity, Reaction): Coded Allergies: Iodinated Contrast- Oral and IV Dye (Verified Allergy, Severe, CARDIAC ARREST, 02/07/18) adhesive (Unverified Allergy, Severe, BLISTER, 02/07/18) amlodipine (Unverified Allergy, Severe, "EKG CHANGES", 02/07/18) amylase (Unverified Allergy, Severe, RASH/SHOB, 02/07/18) atorvastatin (Unverified Allergy, Severe, "STATIN DRUGS"-RHABDOMYLIASIS, ) codeine (Unverified Allergy, Severe, RASH, 02/07/18) diatrizoate meglumine (Unverified Allergy, Severe, PT CODED, 02/07/18) diltiazem (Unverified Allergy, Severe, "EKG CHANGES", 02/07/18) enalaprilat (Unverified Allergy, Severe, 02/07/18) erythromycin base (Unverified Allergy, Severe, SVT, ARRHYTHMIAS, 02/07/18) gadobenic acid (Unverified Allergy, Severe, PT CODED, 02/07/18) gadodiamide (Unverified Allergy, Severe, PT CODED, 02/07/18) gadoteridol (Unverified Allergy, Severe, PT CODED, 02/07/18) iodine (Unverified Allergy, Severe, Anaphylaxis, 02/07/18) iodixanol (Unverified Allergy, Severe, PT CODED, 02/07/18) iohexol (Unverified Allergy, Severe, PT CODED, 02/07/18) isradipine (Unverified Allergy, Severe, "EKG CHANGES", 02/07/18) lipase (Unverified Allergy, Severe, RASH/SHOB, 02/07/18) metoclopramide (Unverified Allergy, Severe, TREMORS, 02/07/18) nalbuphine (Unverified Allergy, Severe, TREMORS, 02/07/18) nicardipine (Unverified Allergy, Severe, "EKG CHANGES", 02/07/18) nifedipine (Unverified Allergy, Severe, "EKG CHANGES", 02/07/18) nimodipine (Unverified Allergy, Severe, 02/07/18) potassium iodide (Unverified Allergy, Severe, Anaphylaxis, 02/07/18) povidone-iodine (Unverified Allergy, Severe, Anaphylaxis, 02/07/18) prochlorperazine (Unverified Allergy, Severe, SHAKES, 02/07/18) promethazine (Unverified Allergy, Severe, 02/07/18) PER PATIENT protease (Unverified Allergy, Severe, RASH/SHOB, 02/07/18) sodium iodide (Unverified Allergy, Severe, Anaphylaxis, 02/07/18) sodium iodide (Unverified Allergy, Severe, Anaphylaxis, 02/07/18) verapamil (Unverified Allergy, Severe, "EKG CHANGES", 02/07/18) Yfjbhgw-Pqx-Jcb Reductase Inhibitor (Verified Allergy, Intermediate, RHABDO, 02/07/18) Uncoded Allergies: LICORICE (Allergy, Severe, Anaphylaxis, 12/13/11) PER PATIENT NUTRASWEET (Adverse Reaction, Severe, HEADACHES, 08/28/10) Reported Meds & Prescriptions Reported Meds & Active Scripts Active Artificial Tears Opth Drops (Polyvinyl Alcohol) 1.4% Soln 1 Drop EACH EYE Q4H Lidoderm (Lidocaine) 5 % Adh..patch 1 Patch T-DERMAL DAILY Fiorinal (Butalbital/Aspirin/Caffeine) 50-325-40 Mg Cap 1 Cap PO Q4H PRN Do not exceed 6 capsules/day. Dilantin (Phenytoin Extended) 100 Mg Cap 150 Mg PO BID Lisinopril 30 Mg Tab 30 Mg PO DAILY Gabapentin 300 Mg Cap 300 Mg PO QID Clonidine (Clonidine HCl) 0.1 Mg Tab 0.1 Mg PO BID Eliquis (Apixaban) 2.5 Mg Tab 2.5 Mg PO BID Oxcarbazepine 300 Mg Tab 450 Mg PO BID Metoprolol Tartrate 25 Mg Tab 25 Mg PO BID Levothyroxine (Levothyroxine Sodium) 25 Mcg Tab 25 Mcg PO DAILY Protonix (Pantoprazole Sodium) 40 Mg Tab 40 Mg PO DAILY Zoloft (Sertraline HCl) 100 Mg Tab 100 Mg PO DAILY Reported Levetiracetam 500 Mg Tab 500 Mg PO BID Levetiracetam 1,000 Mg Tab 1,000 Mg PO BID Loperamide (Loperamide HCl) 2 Mg Cap 2 Mg PO DIRECTED PRN One capsule after each loose stool. Not to exceed 8 capsules per day. Ascorbic Acid 500 Mg Tab 500 Mg PO DAILY Tylenol (Acetaminophen) 325 Mg Tab 325 Mg PO Q4H PRN Zofran Odt (Ondansetron Odt) 4 Mg Tab 4 Mg SL Q8HR PRN Vitamin B-12 (Cyanocobalamin (Vitamin B-12)) 50 Mcg Lozenge Review of Systems Except as stated in HPI: all other systems reviewed are Neg Physical Exam Narrative GENERAL: 67yo F not in distress. SKIN: Focused skin assessment warm/dry. HEAD: Atraumatic. Normocephalic. EYES: Pupils equal and round at 4mm bilaterally. ENT: No nasal bleeding or discharge. Mucous membranes pink and moist. NECK: Trachea midline. No JVD. CARDIOVASCULAR: Regular rate and rhythm. No murmur appreciated. RESPIRATORY: No accessory muscle use. Clear to auscultation. Breath sounds equal bilaterally. GASTROINTESTINAL: Abdomen soft, non-tender, nondistended. MUSCULOSKELETAL: No obvious deformities. No clubbing. No cyanosis. No edema. NEUROLOGICAL: Awake and alert. Follows commands and moves bilateral upper extremities and lower extremities but there are some weakness in lower extremity which is not new. Speaks in a few words at a time. Data Data Last Documented VS Vital Signs Date Time Temp Pulse Resp B/P (MAP) Pulse Ox O2 Delivery O2 Flow Rate FiO2 02/07/18 17:00 97 19 141/78 (99) 97 Room Air 02/07/18 15:00 98.6 Orders Orders Ammonia (02/07/18 15:13) Complete Blood Count With Diff (02/07/18 15:13) Comprehensive Metabolic Panel (02/07/18 15:13) Creatine Kinase (Cpk) (02/07/18 15:13) Troponin I (02/07/18 15:13) Thyroid Stimulating Hormone (02/07/18 15:13) Urinalysis - C+S If Indicated (02/07/18 15:13) Ct Brain W/O Iv Contrast(Rout) (02/07/18 15:13) Drug Screen, Random Urine (02/07/18 15:13) Alcohol (Ethanol) (02/07/18 15:13) Tylenol (Acetaminophen) (02/07/18 15:13) Salicylates (Aspirin) (02/07/18 15:13) Ct Abd/Pel W/O Iv Contrast (02/07/18 ) Urine Culture (02/07/18 15:30) Electrocardiogram (02/07/18 15:02) Ceftriaxone Inj (Rocephin Inj) (02/07/18 17:15) Trileptal (Oxycarbazapine) (02/07/18 17:17) Phenytoin (Dilantin) (02/07/18 17:17) Admit Order (Ed Use Only) (02/07/18 17:17) ^ Seizure Precautions (02/07/18 17:17) Labs Laboratory Tests Test 02/07/18 15:20 02/07/18 15:30 White Blood Count 6.5 TH/MM3 Red Blood Count 4.92 MIL/MM3 Hemoglobin 14.1 GM/DL Hematocrit 41.5 % Mean Corpuscular Volume 84.5 FL Mean Corpuscular Hemoglobin 28.7 PG Mean Corpuscular Hemoglobin Concent 33.9 % Red Cell Distribution Width 13.8 % Platelet Count 314 TH/MM3 Mean Platelet Volume 7.7 FL Neutrophils (%) (Auto) 51.9 % Lymphocytes (%) (Auto) 35.9 % Monocytes (%) (Auto) 10.6 % Eosinophils (%) (Auto) 0.7 % Basophils (%) (Auto) 0.9 % Neutrophils # (Auto) 3.4 TH/MM3 Lymphocytes # (Auto) 2.3 TH/MM3 Monocytes # (Auto) 0.7 TH/MM3 Eosinophils # (Auto) 0.0 TH/MM3 Basophils # (Auto) 0.1 TH/MM3 CBC Comment DIFF FINAL Differential Comment Blood Urea Nitrogen 7 MG/DL Creatinine 0.96 MG/DL Random Glucose 107 MG/DL Total Protein 7.9 GM/DL Albumin 3.9 GM/DL Calcium Level 9.0 MG/DL Alkaline Phosphatase 133 U/L Aspartate Amino Transf (AST/SGOT) 10 U/L Alanine Aminotransferase (ALT/SGPT) 11 U/L Total Bilirubin 0.2 MG/DL Sodium Level 131 MEQ/L Potassium Level 4.8 MEQ/L Chloride Level 99 MEQ/L Carbon Dioxide Level 19.8 MEQ/L Anion Gap 12 MEQ/L Estimat Glomerular Filtration Rate 58 ML/MIN Ammonia 27 MCMOL/L Total Creatine Kinase 43 U/L Troponin I LESS THAN 0.02 NG/ML Thyroid Stimulating Hormone 3rd Gen 1.850 uIU/ML Salicylates Level 10.6 MG/DL Acetaminophen Level LESS THAN 2.0 MCG/ML Ethyl Alcohol Level LESS THAN 3 MG/DL Urine Color DARK-BROWN Urine Turbidity HAZY Urine pH 7.0 Urine Specific [place] 1.035 Urine Protein 30 mg/dL Urine Glucose (UA) NEG mg/dL Urine Ketones NEG mg/dL Urine Occult Blood NEG Urine Nitrite POS Urine Bilirubin MOD Urine Urobilinogen 4.0 MG/DL Urine Leukocyte Esterase MOD Urine RBC 4 /hpf Urine WBC 113 /hpf Urine Squamous Epithelial Cells 1 /hpf Urine Amorphous Sediment RARE Urine Hyaline Casts 29 /lpf Urine Mucus FEW /lpf Microscopic Urinalysis Comment CATH-CULTURE IND Urine Opiates Screen NEG Urine Barbiturates Screen POS Urine Amphetamines Screen NEG Urine Benzodiazepines Screen NEG Urine Cocaine Screen NEG Urine Cannabinoids Screen NEG MDM Medical Decision Making Medical Screen Exam Complete: Yes Emergency Medical Condition: Yes Interpretation(s) EKG: NSR 91bpm. Normal axis. No ST segment elevation or depression. Differential Diagnosis Psychosis vs. CVA vs. seizure Narrative Course 67yo here with altered mental status. Pt is verbal here only stating a few words at a time. CT brain negative. CT a/p negative. Labs reviewed, no leukocytosis. Normal ammonia. Negative troponin. UA positive for nitrite. Pt given ceftriaxone. Discussed with Dr. Barrett who knows patient well and admitted for observation for altered mental status. Suspect either seizure or conversion disorder. Pt reevaluated at bedside and complains of headache. She is now talking in complete sentences. Pt given acetaminophen but did not help so toradol ordered. Diagnosis Primary Impression: Altered mental status Qualified Codes: R41.82 - Altered mental status, unspecified Additional Impression: UTI (urinary tract infection) Qualified Codes: N39.0 - Urinary tract infection, site not specified Admitting Information Admitting Physician Requests: Observation Manisha Sheikh DO Feb 07, 2018 15:25
[2018-02-07 15:54] LABS: AUTOMATED NEUTROPHIL # 3.4 TH/MM3 (1.8-7.7); BASOPHIL # 0.1 TH/MM3 (0-0.2); BASOPHIL % 0.9 % (0.0-2.0); EOSINOPHIL % 0.7 % (0.0-4.0); HEMATOCRIT 41.5 % (35.0-46.0); HEMOGLOBIN 14.1 GM/DL (11.6-15.3); LYMPH % 35.9 % (9.0-44.0); LYMPHOCYTE # 2.3 TH/MM3 (1.0-4.8); MEAN CELL VOLUME 84.5 FL (80.0-100.0); MEAN CORPUSCULAR HEMOGLOBIN 28.7 PG (27.0-34.0); MEAN CORPUSCULAR HGB CONC 33.9 % (32.0-36.0); MEAN PLATELET VOLUME 7.7 FL (7.0-11.0); MONO % 10.6 % (0.0-8.0); MONOCYTE # 0.7 TH/MM3 (0-0.9); NEUT % 51.9 % (16.0-70.0); PLATELET COUNT 314 TH/MM3 (150-450); RED BLOOD COUNT 4.92 MIL/MM3 (4.00-5.30); RED CELL DISTRIBUTION WIDTH 13.8 % (11.6-17.2); WHITE BLOOD COUNT 6.5 TH/MM3 (4.0-11.0)
--- NOTE | 2018-02-07 16:00 | RADRPT ---
EXAM DATE/TIME: 02/07/2018 15:49 [facility] COMPARISON: CT BRAIN W/O CONTRAST, September 16, 2017, 21:48. INDICATIONS : Sudden altered mental status RADIATION DOSE: 47.51 CTDIvol (mGy) MEDICAL HISTORY : Cardiovascular disease. Cerebrovascular disease. Hypertension. SURGICAL HISTORY : Appendectomy. Cholecystectomy. section. ENCOUNTER: Initial ACUITY: 1 day PAIN SCALE: 0/10 LOCATION: cranial TECHNIQUE: Multiple contiguous axial images were obtained of the head. Using automated exposure control and adj ustment of the mA and/or kV according to patient size, radiation dose was kept as low as reasonably a chievable to obtain optimal diagnostic quality images. DICOM format image data is available electro nically for review and comparison. FINDINGS: CEREBRUM: The ventricles are normal for age. No evidence of midline shift, mass lesion, hemorrhage or acute in farction. No extra-axial fluid collections are seen. POSTERIOR FOSSA: The cerebellum and brainstem are intact. The 4th ventricle is midline. The cerebellopontine angle i s unremarkable. EXTRACRANIAL: The visualized portion of the orbits is intact. SKULL: The calvaria is intact. No evidence of skull fracture. CONCLUSION: 1. No acute intracranial abnormality. Evert Rasmussen MD on February 07, 2018 at 15:57 Board Certified Radiologist. This report was verified electronically.
--- NOTE | 2018-02-07 16:14 | RADRPT ---
EXAM DATE/TIME: 02/07/2018 15:52 [facility] COMPARISON: No previous studies available for comparison. INDICATIONS : Abdominal pain ORAL CONTRAST: No oral contrast ingested. RADIATION DOSE: 16.06 CTDIvol (mGy) MEDICAL HISTORY : Cardiovascular disease. Cerebrovascular disease. Hypertension. SURGICAL HISTORY : Appendectomy. Cholecystectomy. ENCOUNTER: Initial ACUITY: 1 day PAIN SCALE: 8/10 LOCATION: diffuse abdomen TECHNIQUE: Volumetric scanning of the abdomen and pelvis was performed. Using automated exposure control and ad justment of the mA and/or kV according to patient size, radiation dose was kept as low as reasonably achievable to obtain optimal diagnostic quality images. DICOM format image data is available electro nically for review and comparison. FINDINGS: Dependent atelectasis is present at the lung bases. Heart size enlarged. Moderate coronary calcificat ions. Elevated right hemidiaphragm. Previous cholecystectomy. Spleen, adrenals and pancreas unremarkable. N o acute renal abnormalities. An inferior vena cava filter noted. No focal abnormalities in the liver. There are remote fractures of the left transverse processes of L2, L3 and L4. No acute bony abnormali ties. CONCLUSION: 1. No acute findings within the abdomen and pelvis. Previous cholecystectomy. Inferior vena cava filt er present. Remote left lateral transverse process fractures in the lumbar spine. Moderate coronary a rtery calcifications. Petros Bergman MD on February 07, 2018 at 16:01 Board Certified Radiologist. This report was verified electronically.
[2018-02-07 16:15] LABS: AMORPHOUS SEDIMENT, URINE RARE; BILIRUBIN, URINE MOD (NEG); BLOOD, URINE NEG (NEG); GLUCOSE,URINE NEG (NEG); HYALINE CAST, URINE 29 /lpf (RARE); KETONE, URINE NEG (NEG); MUCUS URINE FEW /lpf (OCC); NITRITE,URINE POS (NEG); SQUAMOUS EPITHELIAL CELL URINE 1 /hpf (0-5); URINE LEUKOCYTE ESTERASE MOD (NEG)
[2018-02-07 16:19] LABS: URINE COLOR DARK-BROWN (YELLW/STRAW)
[2018-02-07 16:29] LABS: ALBUMIN 3.9 GM/DL (3.4-5.0); ALT (GPT) 11 U/L (10-53); AST (GOT) 10 U/L (15-37); BICARBONATE 19.8 MEQ/L (21.0-32.0); BLOOD UREA NITROGEN 7 MG/DL (7-18); CHLORIDE 99 MEQ/L (98-107); CREATININE 0.96 MG/DL (0.50-1.00); GLOMERULAR FILTRATION RATE 58 ML/MIN (>89); GLUCOSE,RANDOM 107 MG/DL (74-106); SODIUM (NA) 131 MEQ/L (136-145)
[2018-02-07 16:38] LABS: ACETAMINOPHEN LESS THAN 2.0 MCG/ML (10.0-30.0); ALKALINE PHOSPHATASE 133 U/L (45-117); TOTAL BILIRUBIN ADULT 0.2 MG/DL (0.2-1.0); TOTAL PROTEIN 7.9 GM/DL (6.4-8.2); TROPONIN I LESS THAN 0.02 NG/ML (0.02-0.05)
[2018-02-07 17:00] VITALS: BP 141/78; PULSE 97; RESP 19; O2SAT 97
[2018-02-07] MEDS ORDERED: cefTRIAXone INJ 1,000 MG in SODIUM CHLORIDE 0.9% INJ 100 ML IV ONE (17:15)
[2018-02-07] MEDS ORDERED: ACETAMINOPHEN 325 MG TAB PO ONE (18:15)
[2018-02-07] MEDS ORDERED: ONDANSETRON HCL 4 MG/2 ML VIAL IV PUSH ONE ×2 (18:15→20:45)
[2018-02-07] MEDS ORDERED: KETOROLAC TROMETHAMINE 30 MG/ML (IVP) VIAL IV PUSH ONE (19:00)
[2018-02-07 19:05] VITALS: BP 156/83; PULSE 102; RESP 18; O2SAT 94
[2018-02-07] MEDS ORDERED: SODIUM CHLORIDE 0.9% FLUSH 10 ML FLUSH IV FLUSH PRN (20:15)
[2018-02-07] MEDS ORDERED: ONDANSETRON ODT 4 MG TAB SL PRN (20:15)
[2018-02-07] MEDS ORDERED: ACETAMINOPHEN 325 MG TAB PO PRN (20:15)
[2018-02-07] MEDS ORDERED: LOPERAMIDE HCL 2 MG CAP PO PRN (20:15)
[2018-02-07] MEDS ORDERED: NALOXONE HCL 0.4 MG/ML AMP IV PUSH PRN (20:15)
[2018-02-07] MEDS ORDERED: PILL SPLITTER OTHER PRN (21:15)
[2018-02-07] MEDS ORDERED: LEVE500T8 PO (21:48)
[2018-02-07] MEDS ORDERED: LEVE10003 PO (21:48)
[2018-02-08] VITALS (8 sets, daily range): BP systolic 118–143; BP diastolic 60–74; PULSE 60–83; RESP 18; TEMP 97.8–98.4; O2SAT 95–97
[2018-02-08] MEDS: GABAPENTIN 300 MG CAP PO SCH ×5 (00:14→22:12)
[2018-02-08] MEDS: levETIRAcetam 500 MG TAB PO SCH ×3 (00:15→22:14)
[2018-02-08] MEDS: cloNIDine HCL 0.1 MG TAB PO SCH ×3 (00:16→22:13)
[2018-02-08] MEDS: SODIUM CHLORIDE 0.9% FLUSH 10 ML FLUSH IV FLUSH SCH ×3 (00:45→22:09)
[2018-02-08] MEDS: METOPROLOL TARTRATE 25 MG TAB PO SCH ×3 (00:46→22:12)
[2018-02-08] MEDS: ARTIFICIAL TEARS OPTH SOLN 15 ML BTL EACH EYE SCH ×7 (00:46→22:25)
[2018-02-08] MEDS: APIXABAN 2.5 MG TABLET PO SCH ×3 (00:48→22:13)
[2018-02-08] MEDS: OXcarbazepine 300 MG TAB PO SCH ×3 (00:48→22:12)
[2018-02-08] MEDS: PHENYTOIN SUSP 100 MG/4 ML CUP PO SCH ×3 (00:49→22:14)
[2018-02-08] MEDS: LEVOTHYROXINE SODIUM 25 MCG TAB PO SCH (06:07)
[2018-02-08] MEDS: LIDOCAINE HCL 5% PATCH T-DERMAL SCH (09:49)
[2018-02-08] MEDS: PANTOPRAZOLE SOD 40 MG DELAYED RELEASE TAB PO SCH (09:50)
[2018-02-08] MEDS: SERTRALINE HCL 100 MG TAB PO SCH (09:51)
[2018-02-08] MEDS: ASCORBIC ACID 500 MG TAB PO SCH (09:51)
[2018-02-08] MEDS: LISINOPRIL 20 MG TAB PO SCH (09:52)
[2018-02-08 10:21] LABS: ALBUMIN 3.5 GM/DL (3.4-5.0); AST (GOT) 14 U/L (15-37); BICARBONATE 23.9 MEQ/L (21.0-32.0); BLOOD UREA NITROGEN 6 MG/DL (7-18); CALCIUM 9.2 MG/DL (8.5-10.1); CHLORIDE 103 MEQ/L (98-107); CREATININE 0.75 MG/DL (0.50-1.00); GLOMERULAR FILTRATION RATE 77 ML/MIN (>89); GLUCOSE,RANDOM 91 MG/DL (74-106); SODIUM (NA) 136 MEQ/L (136-145)
[2018-02-08 10:22] LABS: ALT (GPT) 10 U/L (10-53)
[2018-02-08 10:25] LABS: ALKALINE PHOSPHATASE 120 U/L (45-117); TOTAL BILIRUBIN ADULT 0.3 MG/DL (0.2-1.0); TOTAL PROTEIN 7.2 GM/DL (6.4-8.2)
--- NOTE | 2018-02-08 10:59 | HHI.HP ---
History of Present Illness Primary Care Physician Umesh Barrett, DO Admission Diagnosis Altered mental status, UTI Diagnoses: History of Present Illness 67yo F with PMH of major depressive disorder, seizure on keppra, chronic pain, gastroparesis, R AKA, CVA was brought in by [facility] for altered mental status. She was recently D/C from Psych unit on 01/30/18. She is well known to our services with multiple hospital admissions. She voices that she is not sure what happened, she had been voiding a lot and remembers that she just came back from bathroom and her head was spinning and vision become "cloudy". She then says the evac men were around her but she was unable to speak, and the rest is blur. Review of Systems Constitutional: COMPLAINS OF: Change in appetite Musculoskeletal: COMPLAINS OF: Muscle aches, Stiffness, Neck pain Neurologic: COMPLAINS OF: Abnormal gait (R AKA) Psychiatric: COMPLAINS OF: Anxiety, Depression, Hallucinations Past Family Social History Allergies: Coded Allergies: Iodinated Contrast- Oral and IV Dye (Verified Allergy, Severe, CARDIAC ARREST, 02/07/18) adhesive (Unverified Allergy, Severe, BLISTER, 02/07/18) amlodipine (Unverified Allergy, Severe, "EKG CHANGES", 02/07/18) amylase (Unverified Allergy, Severe, RASH/SHOB, 02/07/18) atorvastatin (Unverified Allergy, Severe, "STATIN DRUGS"-RHABDOMYLIASIS, ) codeine (Unverified Allergy, Severe, RASH, 02/07/18) diatrizoate meglumine (Unverified Allergy, Severe, PT CODED, 02/07/18) diltiazem (Unverified Allergy, Severe, "EKG CHANGES", 02/07/18) enalaprilat (Unverified Allergy, Severe, 02/07/18) erythromycin base (Unverified Allergy, Severe, SVT, ARRHYTHMIAS, 02/07/18) gadobenic acid (Unverified Allergy, Severe, PT CODED, 02/07/18) gadodiamide (Unverified Allergy, Severe, PT CODED, 02/07/18) gadoteridol (Unverified Allergy, Severe, PT CODED, 02/07/18) iodine (Unverified Allergy, Severe, Anaphylaxis, 02/07/18) iodixanol (Unverified Allergy, Severe, PT CODED, 02/07/18) iohexol (Unverified Allergy, Severe, PT CODED, 02/07/18) isradipine (Unverified Allergy, Severe, "EKG CHANGES", 02/07/18) lipase (Unverified Allergy, Severe, RASH/SHOB, 02/07/18) metoclopramide (Unverified Allergy, Severe, TREMORS, 02/07/18) nalbuphine (Unverified Allergy, Severe, TREMORS, 02/07/18) nicardipine (Unverified Allergy, Severe, "EKG CHANGES", 02/07/18) nifedipine (Unverified Allergy, Severe, "EKG CHANGES", 02/07/18) nimodipine (Unverified Allergy, Severe, 02/07/18) potassium iodide (Unverified Allergy, Severe, Anaphylaxis, 02/07/18) povidone-iodine (Unverified Allergy, Severe, Anaphylaxis, 02/07/18) prochlorperazine (Unverified Allergy, Severe, SHAKES, 02/07/18) promethazine (Unverified Allergy, Severe, 02/07/18) PER PATIENT protease (Unverified Allergy, Severe, RASH/SHOB, 02/07/18) sodium iodide (Unverified Allergy, Severe, Anaphylaxis, 02/07/18) sodium iodide (Unverified Allergy, Severe, Anaphylaxis, 02/07/18) verapamil (Unverified Allergy, Severe, "EKG CHANGES", 02/07/18) Uxlnebo-Msi-Dqf Reductase Inhibitor (Verified Allergy, Intermediate, RHABDO, 02/07/18) Uncoded Allergies: LICORICE (Allergy, Severe, Anaphylaxis, 12/13/11) PER PATIENT NUTRASWEET (Adverse Reaction, Severe, HEADACHES, 08/28/10) Past Medical History HLD HTN CHF COPD CAD Migraines Seizures CVA DVT/PE Anxiety Depression Arthritis Past Surgical History R AKA Colon Resection TKA IVC filter Reported Medications Artificial Tears Opth Drops (Polyvinyl Alcohol) 1.4% Soln 1 Drop EACH EYE Q4H Lidoderm (Lidocaine) 5 % Adh..patch 1 Patch T-DERMAL DAILY Fiorinal (Butalbital/Aspirin/Caffeine) 50-325-40 Mg Cap 1 Cap PO Q4H PRN Do not exceed 6 capsules/day. Dilantin (Phenytoin Extended) 100 Mg Cap 150 Mg PO BID Lisinopril 30 Mg Tab 30 Mg PO DAILY Gabapentin 300 Mg Cap 300 Mg PO QID Clonidine (Clonidine HCl) 0.1 Mg Tab 0.1 Mg PO BID Eliquis (Apixaban) 2.5 Mg Tab 2.5 Mg PO BID Oxcarbazepine 300 Mg Tab 450 Mg PO BID Metoprolol Tartrate 25 Mg Tab 25 Mg PO BID Levothyroxine (Levothyroxine Sodium) 25 Mcg Tab 25 Mcg PO DAILY Protonix (Pantoprazole Sodium) 40 Mg Tab 40 Mg PO DAILY Zoloft (Sertraline HCl) 100 Mg Tab 100 Mg PO DAILY Levetiracetam 500 Mg Tab 500 Mg PO 3TABS BID Active Ordered Medications Current Medications Medications (Trade) Dose Ordered Sig/Rodney Route Start Time Stop Time Status Last Admin (Tylenol) 325 mg Q4H PRN PO 02/07/18 20:15 (Eliquis) 2.5 mg BID PO 02/07/18 22:00 02/08/18 09:50 (Vitamin C) 500 mg DAILY PO 02/08/18 09:00 02/08/18 09:51 (Fiorinal 325-40-50) 1 cap Q4H PRN PO 02/07/18 20:15 (Catapres) 0.1 mg BID PO 02/07/18 21:00 02/08/18 09:53 (Neurontin) 300 mg QID PO 02/07/18 21:00 02/08/18 13:14 (Keppra) 1,500 mg BID PO 02/07/18 22:00 02/08/18 09:52 (Synthroid) 25 mcg DAILY@0600 PO 02/08/18 06:00 02/08/18 06:07 (Lidoderm 5% Patch.12 Hr) 1 patch DAILY T-DERMAL 02/08/18 09:00 02/08/18 09:49 (Imodium) 2 mg ACHS PRN PO 02/07/18 20:15 (Lopressor) 25 mg BID PO 02/07/18 21:00 02/08/18 09:52 (Zofran Odt) 4 mg Q8HR PRN SL 02/07/18 20:15 (Trileptal) 450 mg BID PO 02/07/18 22:00 02/08/18 09:50 (Protonix) 40 mg DAILY PO 02/08/18 09:00 02/08/18 09:50 (Dilantin Liq) 150 mg BID PO 02/07/18 22:00 02/08/18 09:50 (Tears Naturale Opth Soln) 1 drop Q4H EACH EYE 02/07/18 22:00 02/08/18 09:53 (Zoloft) 100 mg DAILY PO 02/08/18 09:00 02/08/18 09:51 (Prinivil) 30 mg DAILY PO 02/08/18 09:00 02/08/18 09:52 (NS Flush) 2 ml UNSCH PRN IV FLUSH 02/07/18 20:15 (NS Flush) 2 ml BID IV FLUSH 02/07/18 21:00 02/08/18 09:53 (Narcan Inj) 0.4 mg UNSCH PRN IV PUSH 02/07/18 20:15 (Pill Splitter) 1 ea UNSCH PRN OTHER 02/07/18 21:15 Miscellaneous Information 1 Q24H T-DERMAL 02/08/18 21:00 Physical Exam Vital Signs Vital Signs Date Time Temp Pulse Resp B/P (MAP) Pulse Ox O2 Delivery O2 Flow Rate FiO2 02/08/18 08:21 70 02/08/18 08:12 98.4 67 18 143/69 (93) 97 02/08/18 03:35 97.8 65 18 118/60 (79) 97 02/08/18 01:30 98.2 83 18 141/74 (96) 95 02/07/18 21:07 02/07/18 19:05 102 18 156/83 (107) 94 Room Air 02/07/18 17:00 97 19 141/78 (99) 97 Room Air 02/07/18 15:24 83 20 97 Room Air 02/07/18 15:00 98.6 85 17 128/59 (82) 96 Physical Exam GENERAL: This is a well-nourished, well developed female in mild distress r/t migraine SKIN: No rashes, ecchymoses or lesions. Cool and dry. HEAD: Atraumatic. Normocephalic. No temporal or scalp tenderness. EYES: Pupils equal round and reactive. Extraocular motions intact. No scleral icterus. No injection or drainage. ENT: Nose without bleeding, purulent drainage or septal hematoma. Throat without erythema, tonsillar hypertrophy or exudate. Uvula midline. Airway patent. NECK: Trachea midline. No JVD or lymphadenopathy. Supple, nontender, no meningeal signs. CARDIOVASCULAR: Regular rate and rhythm without murmurs, gallops, or rubs. RESPIRATORY: Clear to auscultation. Breath sounds equal bilaterally. No wheezes , rales, or rhonchi. GASTROINTESTINAL: Abdomen soft, non-tender, nondistended. No hepato-splenomegaly , or palpable masses. No guarding. MUSCULOSKELETAL: Extremities without clubbing, cyanosis, or edema. R AKA noted NEUROLOGICAL: Awake and alert. Cranial nerves II through XII intact. Normal speech. Laboratory Laboratory Tests Test 02/07/18 15:20 02/07/18 15:30 02/07/18 17:40 02/08/18 09:28 White Blood Count 6.5 Red Blood Count 4.92 Hemoglobin 14.1 Hematocrit 41.5 Mean Corpuscular Volume 84.5 Mean Corpuscular Hemoglobin 28.7 Mean Corpuscular Hemoglobin Concent 33.9 Red Cell Distribution Width 13.8 Platelet Count 314 Mean Platelet Volume 7.7 Neutrophils (%) (Auto) 51.9 Lymphocytes (%) (Auto) 35.9 Monocytes (%) (Auto) 10.6 Eosinophils (%) (Auto) 0.7 Basophils (%) (Auto) 0.9 Neutrophils # (Auto) 3.4 Lymphocytes # (Auto) 2.3 Monocytes # (Auto) 0.7 Eosinophils # (Auto) 0.0 Basophils # (Auto) 0.1 CBC Comment DIFF FINAL Differential Comment Blood Urea Nitrogen 7 6 Creatinine 0.96 0.75 Random Glucose 107 91 Total Protein 7.9 7.2 Albumin 3.9 3.5 Calcium Level 9.0 9.2 Alkaline Phosphatase 133 120 Aspartate Amino Transf (AST/SGOT) 10 14 Alanine Aminotransferase (ALT/SGPT) 11 10 Total Bilirubin 0.2 0.3 Sodium Level 131 136 Potassium Level 4.8 4.1 Chloride Level 99 103 Carbon Dioxide Level 19.8 23.9 Anion Gap 12 9 Estimat Glomerular Filtration Rate 58 77 Ammonia 27 Total Creatine Kinase 43 Troponin I LESS THAN 0.02 Thyroid Stimulating Hormone 3rd Gen 1.850 Salicylates Level 10.6 Acetaminophen Level LESS THAN 2.0 Ethyl Alcohol Level LESS THAN 3 Urine Color DARK-BROWN Urine Turbidity HAZY Urine pH 7.0 Urine Specific [place] 1.035 Urine Protein 30 Urine Glucose (UA) NEG Urine Ketones NEG Urine Occult Blood NEG Urine Nitrite POS Urine Bilirubin MOD Urine Urobilinogen 4.0 Urine Leukocyte Esterase MOD Urine RBC 4 Urine WBC 113 Urine Squamous Epithelial Cells 1 Urine Amorphous Sediment RARE Urine Hyaline Casts 29 Urine Mucus FEW Microscopic Urinalysis Comment CATH-CULTURE IND Urine Opiates Screen NEG Urine Barbiturates Screen POS Urine Amphetamines Screen NEG Urine Benzodiazepines Screen NEG Urine Cocaine Screen NEG Urine Cannabinoids Screen NEG Phenytoin (Dilantin) Level 10.8 Date/Time Source Procedure Growth Status 02/07/18 15:30 Urine Catheterized Urine Urine Culture Pending Received Result Diagram: 02/07/18 1520 02/08/18 0928 Imaging Last [address] 02/07/18 1513 Signed Impressions: Service Date/Time: January 15:49 - CONCLUSION: 1. No acute intracranial abnormality. Evert Rasmussen MD Abdomen/Pelvis CT 02/07/18 0000 Signed Impressions: Service Date/Time: January 15:52 - CONCLUSION: 1. No acute findings within the abdomen and pelvis. Previous cholecystectomy. Inferior vena cava filter present. Remote left lateral transverse process fractures in the lumbar spine. Moderate coronary artery calcifications. MD Mary Davalosi VTE Risk Assessment Caprini VTE Risk Assessment: Mod/High Risk (score >= 2) Caprini Risk Assessment Model Point Value = 1 Point Value = 2 Point Value = 3 Point Value = 5 Age 41-60 Minor surgery BMI > 25 kg/m2 Swollen legs Varicose veins or History of unexplained or recurrent spontaneous Oral contraceptives or hormone replacement Sepsis (< 1 month) Serious lung disease, including pneumonia (< 1 month) Abnormal pulmonary function Acute myocardial infarction Congestive heart failure (< 1 month) History of inflammatory bowel disease Medical patient at bed rest Age 61-74 Arthroscopic surgery Major open surgery (> 45 min) Laparoscopic surgery (> 45 min) Malignancy Confined to bed (> 72 hours) Immobilizing plaster cast Central venous access Age >= 75 History of VTE Family history of VTE Factor V Leiden Prothrombin [id number] Lupus anticoagulant Anticardiolipin antibodies Elevated serum homocysteine Heparin-induced thrombocytopenia Other congenital or acquired thrombophilia Stroke (< 1 month) Elective arthroplasty Hip, pelvis, or leg fracture Acute spinal cord injury (< 1 month) Prophylaxis Regimen Total Risk Factor Score Risk Level Prophylaxis Regimen 0-1 Low Early ambulation 2 Moderate Order ONE of the following: *Sequential Compression Device (SCD) *Heparin 5000 units SQ BID 3-4 Higher Order ONE of the following medications: *Heparin 5000 units SQ TID *Enoxaparin/Lovenox 40 mg SQ daily (WT < 150 kg, CrCl > 30 mL/min) *Enoxaparin/Lovenox 30 mg SQ daily (WT < 150 kg, CrCl > 10-29 mL/min) *Enoxaparin/Lovenox 30 mg SQ BID (WT < 150 kg, CrCl > 30 mL/min) AND/OR *Sequential Compression Device (SCD) 5 or more Highest Order ONE of the following medications: *Heparin 5000 units SQ TID (Preferred with Epidurals) *Enoxaparin/Lovenox 40 mg SQ daily (WT < 150 kg, CrCl > 30 mL/min) *Enoxaparin/Lovenox 30 mg SQ daily (WT < 150 kg, CrCl > 10-29 mL/min) *Enoxaparin/Lovenox 30 mg SQ BID (WT < 150 kg, CrCl > 30 mL/min) AND *Sequential Compression Device (SCD) Assessment and Plan Problem List: (1) Migraine ICD Codes: G43.909 - Migraine, unspecified, not intractable, without status migrainosus Status: Chronic Plan: Neuro consult, HX of migraines, cont home medication. (2) Seizure disorder ICD Codes: G40.909 - Epilepsy, unspecified, not intractable, without status epilepticus Status: Acute Plan: On Keppra, Trileptal and Dilantin. neurology following, (3) depressive disorder NOS Status: Acute Plan: Recently DC from psych unit, on 01/30/18, continue Meds (4) Hypertension ICD Codes: I10 - Hypertension Status: Acute Plan: Continue home meds, cont to monitor Assessment and Plan Recent admission, will need placement [facility] hospitalist will be covering throughout weekend. Problem Qualifiers (1) Migraine: Sherron Edwards Feb 08, 2018 10:59
--- NOTE | 2018-02-08 11:17 | EKG ---
Date Performed: 02/07/2018 Time Performed: 15:02:22 PTAGE: 67 years EKG: Sinus rhythm NORMAL ECG PREVIOUS TRACING : 12/21/2017 00.06 Since the previous tracing, no significant change noted DOCTOR: Rogelio Rodriguez Interpretating Date/Time 02/08/2018 11:12:40
[2018-02-08 12:06] LABS: AUTOMATED NEUTROPHIL # 2.4 TH/MM3 (1.8-7.7); EOSINOPHIL # 0.2 TH/MM3 (0-0.4); EOSINOPHIL % 3.8 % (0.0-4.0); HEMATOCRIT 41.3 % (35.0-46.0); HEMOGLOBIN 13.7 GM/DL (11.6-15.3); LYMPH % 38.2 % (9.0-44.0); MEAN CELL VOLUME 87.7 FL (80.0-100.0); MEAN CORPUSCULAR HEMOGLOBIN 29.2 PG (27.0-34.0); MEAN CORPUSCULAR HGB CONC 33.2 % (32.0-36.0); MEAN PLATELET VOLUME 8.5 FL (7.0-11.0); MONO % 11.4 % (0.0-8.0); MONOCYTE # 0.6 TH/MM3 (0-0.9); NEUT % 45.6 % (16.0-70.0); PLATELET COUNT 266 TH/MM3 (150-450); RED CELL DISTRIBUTION WIDTH 14.2 % (11.6-17.2); WHITE BLOOD COUNT 5.2 TH/MM3 (4.0-11.0)
--- NOTE | 2018-02-08 13:46 | PD.CONS ---
History of Present Illness Service Neurology Consult Requested By medical Reason for Consult sz, headache Primary Care Physician Umesh Barrett, DO History of Present Illness 67yo F with recently dc'd fro severe depression from [facility] [place] [facility] [place] readmitted for for dizziness, not "speaking". c/o to me of feeling weak and having recurrent reyes. requests iv zofran and dilaudid. has home care see her 4hrs/day. hx of chronic migraines, tension reyes, sz's. recurrent hospitalizations to [facility] and [facility]. PFSH Past Medical History Cardiovascular Problems: Yes High Cholesterol: Yes Chemotherapy: Yes Chest Pain: Yes Congestive Heart Failure: Yes COPD: Yes Cerebrovascular Accident: Yes (X 4) Coronary Artery Disease: Yes Diabetes: No Diminished Hearing: No Deep Vein Thrombosis: Yes (PE, DVT) Endocrine: Yes Gastrointestinal Disorders: Yes (GASTROPARESIS) GERD: Yes Gout: Yes Headaches: Yes Hiatal Hernia: No Hypertension: Yes Musculoskeletal: Yes (arthritis) Neurologic: Yes (4 CVA's and seizure) Psychiatric: Yes Reproductive: No Respiratory: Yes Integumentary: Yes (HX OF MRSA) Immunizations Current: No Migraines: Yes Seizures: Yes Past Surgical History Abdominal Surgery: Yes (COLON RESECTION, G TUBE PLACEMENT) Appendectomy: Yes Arteriovenous Shunt: No Body Medical Devices: total knee replacement Cardiac Surgery: Yes Section: Yes (1) Cholecystectomy: Yes Coronary Stent: Yes Genitourinary Surgery: No Gynecologic Surgery: Yes () Hysterectomy: Yes Insulin Pump: No Joint Replacement: Yes (R ANKLE, R TOTAL KNEE May,) Neurologic Surgery: No Oral Surgery: Yes Pacemaker: No Thoracic Surgery: Yes Tonsillectomy: Yes (T&A) Other Surgery: Yes (IVC filter ) Family History Family Hypercholesterolemia: Yes Social History Alcohol Use: No Tobacco Use: No Substance Use: No Allergies-Medications (Allergen,Severity, Reaction): Coded Allergies: Iodinated Contrast- Oral and IV Dye (Verified Allergy, Severe, CARDIAC ARREST, 02/07/18) adhesive (Unverified Allergy, Severe, BLISTER, 02/07/18) amlodipine (Unverified Allergy, Severe, "EKG CHANGES", 02/07/18) amylase (Unverified Allergy, Severe, RASH/SHOB, 02/07/18) atorvastatin (Unverified Allergy, Severe, "STATIN DRUGS"-RHABDOMYLIASIS, ) codeine (Unverified Allergy, Severe, RASH, 02/07/18) diatrizoate meglumine (Unverified Allergy, Severe, PT CODED, 02/07/18) diltiazem (Unverified Allergy, Severe, "EKG CHANGES", 02/07/18) enalaprilat (Unverified Allergy, Severe, 02/07/18) erythromycin base (Unverified Allergy, Severe, SVT, ARRHYTHMIAS, 02/07/18) gadobenic acid (Unverified Allergy, Severe, PT CODED, 02/07/18) gadodiamide (Unverified Allergy, Severe, PT CODED, 02/07/18) gadoteridol (Unverified Allergy, Severe, PT CODED, 02/07/18) iodine (Unverified Allergy, Severe, Anaphylaxis, 02/07/18) iodixanol (Unverified Allergy, Severe, PT CODED, 02/07/18) iohexol (Unverified Allergy, Severe, PT CODED, 02/07/18) isradipine (Unverified Allergy, Severe, "EKG CHANGES", 02/07/18) lipase (Unverified Allergy, Severe, RASH/SHOB, 02/07/18) metoclopramide (Unverified Allergy, Severe, TREMORS, 02/07/18) nalbuphine (Unverified Allergy, Severe, TREMORS, 02/07/18) nicardipine (Unverified Allergy, Severe, "EKG CHANGES", 02/07/18) nifedipine (Unverified Allergy, Severe, "EKG CHANGES", 02/07/18) nimodipine (Unverified Allergy, Severe, 02/07/18) potassium iodide (Unverified Allergy, Severe, Anaphylaxis, 02/07/18) povidone-iodine (Unverified Allergy, Severe, Anaphylaxis, 02/07/18) prochlorperazine (Unverified Allergy, Severe, SHAKES, 02/07/18) promethazine (Unverified Allergy, Severe, 02/07/18) PER PATIENT protease (Unverified Allergy, Severe, RASH/SHOB, 02/07/18) sodium iodide (Unverified Allergy, Severe, Anaphylaxis, 02/07/18) sodium iodide (Unverified Allergy, Severe, Anaphylaxis, 02/07/18) verapamil (Unverified Allergy, Severe, "EKG CHANGES", 02/07/18) Uajuveq-Afs-Aif Reductase Inhibitor (Verified Allergy, Intermediate, RHABDO, 02/07/18) Uncoded Allergies: LICORICE (Allergy, Severe, Anaphylaxis, 12/13/11) PER PATIENT NUTRASWEET (Adverse Reaction, Severe, HEADACHES, 08/28/10) Review of Systems Except as stated in HPI: all other systems reviewed are Neg Review of Systems All other ROS: ROS reviewed as documented in chart Past Family Social History Allergies: Coded Allergies: Iodinated Contrast- Oral and IV Dye (Verified Allergy, Severe, CARDIAC ARREST, 02/07/18) adhesive (Unverified Allergy, Severe, BLISTER, 02/07/18) amlodipine (Unverified Allergy, Severe, "EKG CHANGES", 02/07/18) amylase (Unverified Allergy, Severe, RASH/SHOB, 02/07/18) atorvastatin (Unverified Allergy, Severe, "STATIN DRUGS"-RHABDOMYLIASIS, ) codeine (Unverified Allergy, Severe, RASH, 02/07/18) diatrizoate meglumine (Unverified Allergy, Severe, PT CODED, 02/07/18) diltiazem (Unverified Allergy, Severe, "EKG CHANGES", 02/07/18) enalaprilat (Unverified Allergy, Severe, 02/07/18) erythromycin base (Unverified Allergy, Severe, SVT, ARRHYTHMIAS, 02/07/18) gadobenic acid (Unverified Allergy, Severe, PT CODED, 02/07/18) gadodiamide (Unverified Allergy, Severe, PT CODED, 02/07/18) gadoteridol (Unverified Allergy, Severe, PT CODED, 02/07/18) iodine (Unverified Allergy, Severe, Anaphylaxis, 02/07/18) iodixanol (Unverified Allergy, Severe, PT CODED, 02/07/18) iohexol (Unverified Allergy, Severe, PT CODED, 02/07/18) isradipine (Unverified Allergy, Severe, "EKG CHANGES", 02/07/18) lipase (Unverified Allergy, Severe, RASH/SHOB, 02/07/18) metoclopramide (Unverified Allergy, Severe, TREMORS, 02/07/18) nalbuphine (Unverified Allergy, Severe, TREMORS, 02/07/18) nicardipine (Unverified Allergy, Severe, "EKG CHANGES", 02/07/18) nifedipine (Unverified Allergy, Severe, "EKG CHANGES", 02/07/18) nimodipine (Unverified Allergy, Severe, 02/07/18) potassium iodide (Unverified Allergy, Severe, Anaphylaxis, 02/07/18) povidone-iodine (Unverified Allergy, Severe, Anaphylaxis, 02/07/18) prochlorperazine (Unverified Allergy, Severe, SHAKES, 02/07/18) promethazine (Unverified Allergy, Severe, 02/07/18) PER PATIENT protease (Unverified Allergy, Severe, RASH/SHOB, 02/07/18) sodium iodide (Unverified Allergy, Severe, Anaphylaxis, 02/07/18) sodium iodide (Unverified Allergy, Severe, Anaphylaxis, 02/07/18) verapamil (Unverified Allergy, Severe, "EKG CHANGES", 02/07/18) Yuqfqgl-Mfz-Hxm Reductase Inhibitor (Verified Allergy, Intermediate, RHABDO, 02/07/18) Uncoded Allergies: LICORICE (Allergy, Severe, Anaphylaxis, 12/13/11) PER PATIENT NUTRASWEET (Adverse Reaction, Severe, HEADACHES, 08/28/10) Active Ordered Medications Current Medications Medications (Trade) Dose Ordered Sig/Rodney Route Start Time Stop Time Status Last Admin (Tylenol) 325 mg Q4H PRN PO 02/07/18 20:15 (Eliquis) 2.5 mg BID PO 02/07/18 22:00 02/08/18 09:50 (Vitamin C) 500 mg DAILY PO 02/08/18 09:00 02/08/18 09:51 (Fiorinal 325-40-50) 1 cap Q4H PRN PO 02/07/18 20:15 (Catapres) 0.1 mg BID PO 02/07/18 21:00 02/08/18 09:53 (Neurontin) 300 mg QID PO 02/07/18 21:00 02/08/18 13:14 (Keppra) 1,500 mg BID PO 02/07/18 22:00 02/08/18 09:52 (Synthroid) 25 mcg DAILY@0600 PO 02/08/18 06:00 02/08/18 06:07 (Lidoderm 5% Patch.12 Hr) 1 patch DAILY T-DERMAL 02/08/18 09:00 02/08/18 09:49 (Imodium) 2 mg ACHS PRN PO 02/07/18 20:15 (Lopressor) 25 mg BID PO 02/07/18 21:00 02/08/18 09:52 (Zofran Odt) 4 mg Q8HR PRN SL 02/07/18 20:15 (Trileptal) 450 mg BID PO 02/07/18 22:00 02/08/18 09:50 (Protonix) 40 mg DAILY PO 02/08/18 09:00 02/08/18 09:50 (Dilantin Liq) 150 mg BID PO 02/07/18 22:00 02/08/18 09:50 (Tears Naturale Opth Soln) 1 drop Q4H EACH EYE 02/07/18 22:00 02/08/18 09:53 (Zoloft) 100 mg DAILY PO 02/08/18 09:00 02/08/18 09:51 (Prinivil) 30 mg DAILY PO 02/08/18 09:00 02/08/18 09:52 (NS Flush) 2 ml UNSCH PRN IV FLUSH 02/07/18 20:15 (NS Flush) 2 ml BID IV FLUSH 02/07/18 21:00 02/08/18 09:53 (Narcan Inj) 0.4 mg UNSCH PRN IV PUSH 02/07/18 20:15 (Pill Splitter) 1 ea UNSCH PRN OTHER 02/07/18 21:15 Miscellaneous Information 1 Q24H T-DERMAL 02/08/18 21:00 Exam I&O / VS Vital Signs Date Time Temp Pulse Resp B/P (MAP) Pulse Ox O2 Delivery O2 Flow Rate FiO2 02/08/18 11:47 60 02/08/18 08:21 70 02/08/18 08:12 98.4 67 18 143/69 (93) 97 02/08/18 03:35 97.8 65 18 118/60 (79) 97 02/08/18 01:30 98.2 83 18 141/74 (96) 95 02/07/18 21:07 02/07/18 19:05 102 18 156/83 (107) 94 Room Air 02/07/18 17:00 97 19 141/78 (99) 97 Room Air 02/07/18 15:24 83 20 97 Room Air 02/07/18 15:00 98.6 85 17 128/59 (82) 96 General: Alert and Oriented, No acute distress Eye: EOMI Respiratory: Non-labored respirations Neurologic: Alert, Oriented, Normal motor, CN II-XII intact Psychiatric: Cooperative, Appropriate mood & affect, Normal judgement Exam Comments ox 3, articulate, calm, anxious, follows, le amp Review/Management Diagnosis/Plan: (1) Migraine ICD Codes: G43.909 - Migraine, unspecified, not intractable, without status migrainosus Status: Chronic Plan: chronic problem x years recs dilaudid per pt request. allergies to multiple meds iv zofran states she tolerates this resume sz meds needs nh placement (2) Seizure cerebral ICD Codes: I67.89 - Other cerebrovascular disease Status: Chronic (3) Major depression, recurrent, chronic ICD Codes: F33.9 - Chronic major depressive disorder, recurrent episode Status: Acute (4) Neuropathy ICD Codes: G62.9 - Neuropathy Status: Acute Problem Qualifiers (1) Migraine: Omid Garcia MD Feb 08, 2018 13:46
[2018-02-08] MEDS: ASPIRIN 325 MG/CAFFEINE 40 MG/BUTALBITAL 50 MG CAP PO PRN (13:49)
[2018-02-08] MEDS: REMOVE OLD LIDOCAINE PATCH T-DERMAL SCH (21:00)
--- NOTE | 2018-02-08 21:15 | MG ---
cc: Omid Garcia MD EEG RECORD NUMBER: [id number] INDICATION: A 67-year-old with history of seizures, severe headaches, dizziness. DESCRIPTION: A 7-8 Hz activity, 20-40 microvolts. Attenuation slowing background in addition to drowsy stage I and stage II sleep with vertex waves followed by K-complexes and spindles. Occasional tiny sharp transients temporal region, left greater than right. Tiny phase reversal T3, epoch 83. Good driving photic stimulation. Single lead EKG showing sinus rhythm. INTERPRETATION: Mild nonspecific changes left temporal region, otherwise stable awake-sleep electroencephalogram. Clinical correlation. Omid Garcia MD MG/KD , 08:58 PM , 09:13 PM
[2018-02-09] VITALS (13 sets, daily range): BP systolic 108–134; BP diastolic 50–68; PULSE 64–94; RESP 17–20; TEMP 97.9–98.9; O2SAT 96–98
[2018-02-09] MEDS: ARTIFICIAL TEARS OPTH SOLN 15 ML BTL EACH EYE SCH ×6 (02:00→21:56)
[2018-02-09] MEDS: ASPIRIN 325 MG/CAFFEINE 40 MG/BUTALBITAL 50 MG CAP PO PRN ×3 (04:34→18:41)
[2018-02-09] MEDS: LEVOTHYROXINE SODIUM 25 MCG TAB PO SCH (05:28)
[2018-02-09] MEDS: levETIRAcetam 500 MG TAB PO SCH ×2 (10:43→21:54)
[2018-02-09] MEDS: OXcarbazepine 300 MG TAB PO SCH ×2 (10:44→21:56)
[2018-02-09] MEDS: SERTRALINE HCL 100 MG TAB PO SCH (10:44)
[2018-02-09] MEDS: cloNIDine HCL 0.1 MG TAB PO SCH ×2 (10:44→21:00)
[2018-02-09] MEDS: LISINOPRIL 20 MG TAB PO SCH (10:44)
[2018-02-09] MEDS: ASCORBIC ACID 500 MG TAB PO SCH (10:45)
[2018-02-09] MEDS: PANTOPRAZOLE SOD 40 MG DELAYED RELEASE TAB PO SCH (10:45)
[2018-02-09] MEDS: GABAPENTIN 300 MG CAP PO SCH ×4 (10:45→21:55)
[2018-02-09] MEDS: PHENYTOIN SUSP 100 MG/4 ML CUP PO SCH ×2 (10:45→21:54)
[2018-02-09] MEDS: APIXABAN 2.5 MG TABLET PO SCH ×2 (10:45→21:54)
[2018-02-09] MEDS: METOPROLOL TARTRATE 25 MG TAB PO SCH ×2 (10:45→21:00)
[2018-02-09] MEDS: LIDOCAINE HCL 5% PATCH T-DERMAL SCH (10:46)
[2018-02-09] MEDS: SODIUM CHLORIDE 0.9% FLUSH 10 ML FLUSH IV FLUSH SCH ×2 (10:46→21:49)
--- NOTE | 2018-02-09 12:46 | HHI.PR ---
Subjective Remarks Patient reports she still has a headache. She admits to having dysuria prior to presentation. We discussed discharge planning at length. She is refusing SNF placement. Objective Vitals Vital Signs Date Time Temp Pulse Resp B/P (MAP) Pulse Ox O2 Delivery O2 Flow Rate FiO2 02/09/18 12:07 98.2 66 20 128/60 (82) 98 02/09/18 08:15 98.2 66 20 134/63 (86) 96 02/09/18 07:39 68 02/09/18 04:02 64 02/09/18 03:34 98.0 72 17 120/57 (78) 97 02/09/18 00:25 98.0 70 17 130/68 (88) 96 02/09/18 00:01 65 02/08/18 20:26 98.2 74 18 139/64 (89) 96 02/08/18 19:59 78 02/08/18 15:07 97.8 72 18 128/68 (88) 95 Result Diagram: 02/08/18 1130 02/08/18 0928 Objective Remarks GENERAL: Elderly female in no apparent distress. CARDIOVASCULAR: Normal rate and regular rhythm without murmurs, gallops, or rubs. RESPIRATORY: Good respiratory efforts. Some faint rales. No wheezing. GASTROINTESTINAL: Abdomen soft, non-tender, non-distended. Normal active bowel sounds MUSCULOSKELETAL: Status post right AKA. NEURO: Alert & Oriented x4 to person, place, time, situation. Moves all ext x4 PSYCH: Appropriate mood and affect. A/P Problem List: (1) Migraine ICD Code: G43.909 - Migraine, unspecified, not intractable, without status migrainosus Status: Chronic Plan: Neurology following. Zofran and Dilaudid added by neurology per the patient's request. (2) Seizure disorder ICD Code: G40.909 - Epilepsy, unspecified, not intractable, without status epilepticus Status: Acute Plan: Continue home medications per neurology. (3) Hypertension ICD Code: I10 - Hypertension Status: Acute Plan: Continue home medications (4) Major depression, recurrent, chronic ICD Code: F33.9 - Chronic major depressive disorder, recurrent episode Status: Acute (5) UTI due to Klebsiella species ICD Code: N39.0 - Urinary tract infection, site not specified; B96.1 - Klebsiella pneumoniae [K. pneumoniae] as the cause of diseases classified elsewhere Plan: Pansensitive. Treat with cefuroxime. Discharge Planning Patient is refusing SNF placement. She states she has 4 hours a day care at home. She states she can do physical therapy at home. PT to evaluate the patient to ensure she can transfer safely. Problem Qualifiers (1) Migraine: Wilian Peralta MD Feb 09, 2018 12:46
--- NOTE | 2018-02-09 13:50 | HHI.PR ---
Review/Management Diagnosis/Plan: (1) Migraine ICD Codes: G43.909 - Migraine, unspecified, not intractable, without status migrainosus Status: Chronic Plan: chronic problem x years on trileptal/dilantin/keppra recs neuro stable eeg- stable, no active sz's ok to d/c from neuro and outpatient f/u needs nh placement (2) Seizure cerebral ICD Codes: I67.89 - Other cerebrovascular disease Status: Chronic (3) Major depression, recurrent, chronic ICD Codes: F33.9 - Chronic major depressive disorder, recurrent episode Status: Acute (4) Neuropathy ICD Codes: G62.9 - Neuropathy Status: Acute Subjective Subjective Comments No acute events reported No headache No chest pain No dyspnea Active Medications Current Medications Medications (Trade) Dose Ordered Sig/Rodney Route Start Time Stop Time Status Last Admin (Tylenol) 325 mg Q4H PRN PO 02/07/18 20:15 (Eliquis) 2.5 mg BID PO 02/07/18 22:00 02/09/18 10:45 (Vitamin C) 500 mg DAILY PO 02/08/18 09:00 02/09/18 10:45 (Fiorinal 325-40-50) 1 cap Q4H PRN PO 02/07/18 20:15 02/09/18 13:07 (Catapres) 0.1 mg BID PO 02/07/18 21:00 02/09/18 10:44 (Neurontin) 300 mg QID PO 02/07/18 21:00 02/09/18 13:06 (Keppra) 1,500 mg BID PO 02/07/18 22:00 02/09/18 10:43 (Synthroid) 25 mcg DAILY@0600 PO 02/08/18 06:00 02/09/18 05:28 (Lidoderm 5% Patch.12 Hr) 1 patch DAILY T-DERMAL 02/08/18 09:00 02/09/18 10:46 (Imodium) 2 mg ACHS PRN PO 02/07/18 20:15 (Lopressor) 25 mg BID PO 02/07/18 21:00 02/09/18 10:45 (Zofran Odt) 4 mg Q8HR PRN SL 02/07/18 20:15 (Trileptal) 450 mg BID PO 02/07/18 22:00 02/09/18 10:44 (Protonix) 40 mg DAILY PO 02/08/18 09:00 02/09/18 10:45 (Dilantin Liq) 150 mg BID PO 02/07/18 22:00 02/09/18 10:45 (Tears Naturale Opth Soln) 1 drop Q4H EACH EYE 02/07/18 22:00 02/09/18 10:46 (Zoloft) 100 mg DAILY PO 02/08/18 09:00 02/09/18 10:44 (Prinivil) 30 mg DAILY PO 02/08/18 09:00 02/09/18 10:44 (NS Flush) 2 ml UNSCH PRN IV FLUSH 02/07/18 20:15 (NS Flush) 2 ml BID IV FLUSH 02/07/18 21:00 02/09/18 10:46 (Narcan Inj) 0.4 mg UNSCH PRN IV PUSH 02/07/18 20:15 (Pill Splitter) 1 ea UNSCH PRN OTHER 02/07/18 21:15 Miscellaneous Information 1 Q24H T-DERMAL 02/08/18 21:00 02/08/18 21:00 (Zofran Inj) 4 mg Q8HR PRN IV PUSH 02/08/18 14:00 (Dilaudid Pf Inj) 1 mg Q4H PRN IV PUSH 02/08/18 14:00 (Ceftin) 250 mg Q12H PO 02/09/18 14:00 Allergies Allergies Coded Allergies Iodinated Contrast- Oral and IV Dye (Verified Allergy, Severe, CARDIAC ARREST , 02/07/18) adhesive (Unverified Allergy, Severe, BLISTER, 02/07/18) amlodipine (Unverified Allergy, Severe, "EKG CHANGES", 02/07/18) amylase (Unverified Allergy, Severe, RASH/SHOB, 02/07/18) atorvastatin (Unverified Allergy, Severe, "STATIN DRUGS"-RHABDOMYLIASIS, ) codeine (Unverified Allergy, Severe, RASH, 02/07/18) diatrizoate meglumine (Unverified Allergy, Severe, PT CODED, 02/07/18) diltiazem (Unverified Allergy, Severe, "EKG CHANGES", 02/07/18) enalaprilat (Unverified Allergy, Severe, 02/07/18) erythromycin base (Unverified Allergy, Severe, SVT, ARRHYTHMIAS, 02/07/18) gadobenic acid (Unverified Allergy, Severe, PT CODED, 02/07/18) gadodiamide (Unverified Allergy, Severe, PT CODED, 02/07/18) gadoteridol (Unverified Allergy, Severe, PT CODED, 02/07/18) iodine (Unverified Allergy, Severe, Anaphylaxis, 02/07/18) iodixanol (Unverified Allergy, Severe, PT CODED, 02/07/18) iohexol (Unverified Allergy, Severe, PT CODED, 02/07/18) isradipine (Unverified Allergy, Severe, "EKG CHANGES", 02/07/18) lipase (Unverified Allergy, Severe, RASH/SHOB, 02/07/18) metoclopramide (Unverified Allergy, Severe, TREMORS, 02/07/18) nalbuphine (Unverified Allergy, Severe, TREMORS, 02/07/18) nicardipine (Unverified Allergy, Severe, "EKG CHANGES", 02/07/18) nifedipine (Unverified Allergy, Severe, "EKG CHANGES", 02/07/18) nimodipine (Unverified Allergy, Severe, 02/07/18) potassium iodide (Unverified Allergy, Severe, Anaphylaxis, 02/07/18) povidone-iodine (Unverified Allergy, Severe, Anaphylaxis, 02/07/18) prochlorperazine (Unverified Allergy, Severe, SHAKES, 02/07/18) promethazine (Unverified Allergy, Severe, 02/07/18) protease (Unverified Allergy, Severe, RASH/SHOB, 02/07/18) sodium iodide (Unverified Allergy, Severe, Anaphylaxis, 02/07/18) sodium iodide (Unverified Allergy, Severe, Anaphylaxis, 02/07/18) verapamil (Unverified Allergy, Severe, "EKG CHANGES", 02/07/18) Tlyoftw-Jap-Jmp Reductase Inhibitor (Verified Allergy, Intermediate, RHABDO, ) Uncoded Allergies LICORICE ( Allergy, Severe, Anaphylaxis, 12/13/11) NUTRASWEET ( Adverse Reaction, Severe, HEADACHES, 08/28/10) Review of Systems All other ROS: ROS reviewed as documented in chart Exam I&O / VS Vital Signs Date Time Temp Pulse Resp B/P (MAP) Pulse Ox O2 Delivery O2 Flow Rate FiO2 02/09/18 12:07 98.2 66 20 128/60 (82) 98 02/09/18 08:15 98.2 66 20 134/63 (86) 96 02/09/18 07:39 68 02/09/18 04:02 64 02/09/18 03:34 98.0 72 17 120/57 (78) 97 02/09/18 00:25 98.0 70 17 130/68 (88) 96 02/09/18 00:01 65 02/08/18 20:26 98.2 74 18 139/64 (89) 96 02/08/18 19:59 78 02/08/18 15:07 97.8 72 18 128/68 (88) 95 General: Alert and Oriented, No acute distress Eye: EOMI Respiratory: Non-labored respirations Neurologic: Alert, Oriented, Normal motor, CN II-XII intact Psychiatric: Cooperative, Appropriate mood & affect, Normal judgement Exam Comments ox 3, sitting up eating lunch, articulate, calm, anxious, follows, le amp Objective Micro and Labs Laboratory Tests Test 02/09/18 09:56 Phenytoin (Dilantin) Level 12.0 Date/Time Source Procedure Growth Status 02/07/18 15:30 Urine Catheterized Urine Urine Culture - Final Klebsiella Pneumoniae Complete Problem Qualifiers (1) Migraine: Omid Garcia MD Feb 09, 2018 13:50
[2018-02-09] MEDS ORDERED: CIPROFLOXACIN 250 MG TAB PO SCH (14:00)
[2018-02-09] MEDS: CEFUROXIME AXETIL 250 MG TAB PO SCH (14:50)
[2018-02-09] MEDS: REMOVE OLD LIDOCAINE PATCH T-DERMAL SCH (21:00)
[2018-02-09] MEDS: HYDROmorphone HCL PF 2 MG/ML VIAL IV PUSH PRN (23:32)
[2018-02-10] VITALS (7 sets, daily range): BP systolic 134–158; BP diastolic 64–73; PULSE 66–91; RESP 14–18; TEMP 98–98.5; O2SAT 94–98
[2018-02-10] MEDS: CEFUROXIME AXETIL 250 MG TAB PO SCH ×2 (02:44→13:58)
[2018-02-10] MEDS: ARTIFICIAL TEARS OPTH SOLN 15 ML BTL EACH EYE SCH ×5 (02:45→16:38)
[2018-02-10] MEDS: HYDROmorphone HCL PF 2 MG/ML VIAL IV PUSH PRN ×4 (04:42→21:04)
[2018-02-10] MEDS: LEVOTHYROXINE SODIUM 25 MCG TAB PO SCH (06:38)
--- NOTE | 2018-02-10 09:43 | HHI.FF ---
Face to Face Verification Diagnosis: (1) Migraine (2) Seizure disorder (3) Hypertension (4) UTI due to Klebsiella species Physical Therapy Order: Evaluate and Treat, Improve ambulation, Strength and gait training Home Health Nursing Order: Medical education Medication education-adverse effect Nursing assessment with vital signs I have seen patient Melisa Hernandez on 02/10/18. My clinical findings support the need for the requested home health care services because: Limited ability to care for self High risk of falls I certify that my clinical findings support that this patient is homebound because: Unsteady gait/balance Need for psychosocial assistance Wilian Peralta MD Feb 10, 2018 09:43
[2018-02-10] MEDS ORDERED: CEFU1TAB18 PO (09:48)
[2018-02-10] MEDS ORDERED: CLON0.1T PO (09:48)
--- NOTE | 2018-02-10 09:50 | HHI.DS ---
Discharge Summary Admission Date Feb 07, 2018 at 20:09 Discharge Date: Feb 10, 2018 Admitting Diagnosis Altered mental status, UTI (1) Migraine ICD Code: G43.909 - Migraine, unspecified, not intractable, without status migrainosus Status: Chronic (2) Seizure disorder ICD Code: G40.909 - Epilepsy, unspecified, not intractable, without status epilepticus Status: Acute (3) Hypertension ICD Code: I10 - Hypertension Status: Acute (4) Major depression, recurrent, chronic ICD Code: F33.9 - Chronic major depressive disorder, recurrent episode Status: Acute (5) UTI due to Klebsiella species ICD Code: N39.0 - Urinary tract infection, site not specified; B96.1 - Klebsiella pneumoniae [K. pneumoniae] as the cause of diseases classified elsewhere Procedures None Brief History - From Admission HPI from the admitting team "67yo F with PMH of major depressive disorder, seizure on keppra, chronic pain, gastroparesis, R AKA, CVA was brought in by [facility] for altered mental status. She was recently D/C from Psych unit on 01/30/18. She is well known to our services with multiple hospital admissions. She voices that she is not sure what happened, she had been voiding a lot and remembers that she just came back from bathroom and her head was spinning and vision become "cloudy". She then says the evac men were around her but she was unable to speak, and the rest is blur". CBC/BMP: 02/08/18 1130 02/08/18 0928 Significant Findings Laboratory Tests Test 02/07/18 15:20 02/07/18 15:30 02/07/18 17:40 02/08/18 09:28 Monocytes (%) (Auto) 10.6 % (0.0-8.0) Random Glucose 107 MG/DL (74-106) Alkaline Phosphatase 133 U/L (45-117) 120 U/L (45-117) Aspartate Amino Transf (AST/SGOT) 10 U/L (15-37) 14 U/L (15-37) Sodium Level 131 MEQ/L (136-145) Carbon Dioxide Level 19.8 MEQ/L (21.0-32.0) Estimat Glomerular Filtration Rate 58 ML/MIN (>89) 77 ML/MIN (>89) Troponin I LESS THAN 0.02 NG/ML Acetaminophen Level LESS THAN 2.0 MCG/ML Urine Color DARK-BROWN (YELLW/STRAW) Urine Turbidity HAZY (CLEAR) Urine Protein 30 mg/dL (NEG-TRACE) Urine Nitrite POS (NEG) Urine Bilirubin MOD (NEG) Urine Urobilinogen 4.0 MG/DL (LESS THAN Urine Leukocyte Esterase MOD (NEG) Urine RBC 4 /hpf (0-3) Urine WBC 113 /hpf (0-5) Urine Mucus FEW /lpf (OCC) Urine Barbiturates Screen POS (NEG) Blood Urea Nitrogen 6 MG/DL (7-18) Test 02/08/18 11:30 02/09/18 09:56 Monocytes (%) (Auto) 11.4 % (0.0-8.0) Imaging Last Impressions Head CT 02/07/18 1513 Signed Impressions: Service Date/Time: January 15:49 - CONCLUSION: 1. No acute intracranial abnormality. Evert Rasmussen MD Abdomen/Pelvis CT 02/07/18 0000 Signed Impressions: Service Date/Time: January 15:52 - CONCLUSION: 1. No acute findings within the abdomen and pelvis. Previous cholecystectomy. Inferior vena cava filter present. Remote left lateral transverse process fractures in the lumbar spine. Moderate coronary artery calcifications. Petros Bergman MD PE at Discharge GENERAL: Elderly female in no apparent distress. CARDIOVASCULAR: Normal rate and regular rhythm without murmurs, gallops, or rubs. RESPIRATORY: Good respiratory efforts. Some faint rales. No wheezing. GASTROINTESTINAL: Abdomen soft, non-tender, non-distended. Normal active bowel sounds MUSCULOSKELETAL: Status post right AKA. NEURO: Alert & Oriented x4 to person, place, time, situation. Moves all ext x4 PSYCH: Appropriate mood and affect. Pt update on day of discharge Patient reports she is feeling much better. She wants to go home but states she does not have a gaston to get into her house. I discussed this with case management and nursing. Hospital Course 67-year-old female admitted and treated for the following: (1) Migraine ICD Code: G43.909 - Migraine, unspecified, not intractable, without status migrainosus Status: Chronic Plan: Neurology followed the patient. Zofran and Dilaudid added by neurology per the patient's request. Headache much improved. Cleared by neurology for discharge. (2) Seizure disorder ICD Code: G40.909 - Epilepsy, unspecified, not intractable, without status epilepticus Status: Acute Plan: Continue home medications per neurology. (3) Hypertension ICD Code: I10 - Hypertension Status: Acute Plan: Blood pressure has been labile. She is on several antihypertensives. I counseled the patient that she may benefit from weaning off clonidine. Her dose was changed to as needed. She is advised to follow-up outpatient with PCP UTI due to Klebsiella species ICD Code: N39.0 - Urinary tract infection, site not specified; B96.1 - Klebsiella pneumoniae [K. pneumoniae] as the cause of diseases classified elsewhere Plan: Pansensitive. Treat with cefuroxime. Discharge Planning Patient is refusing SNF placement. She states she has 4 hours a day care at home. She states she can do physical therapy at home. PT to evaluate the patient and recommended home health with PT. She is discharged home with home health. Pt Condition on Discharge: Good Discharge Disposition: Disch w/ Home Health Serv Discharge Time: <= 30 minutes Discharge Instructions DIET: Follow Instructions for: Heart Healthy Diet Activities you can perform: See Additionl Instruction Other Activity Instructions: Use assistance Follow up Referrals: PCP Follow-up New Medications: Cefuroxime (Ceftin) 250 Mg Tab 250 MG PO Q12H, #14 TAB Changed Medications: Clonidine (Clonidine) 0.1 Mg Tab 0.1 MG PO DIRECTED for Blood Pressure Management, #60 TAB 0 Refills (Changed from: BID) Take one tab Q6hrs for BP greater then 160/90 Continued Medications: Apixaban (Eliquis) 2.5 Mg Tab 2.5 MG PO BID for Blood Clot Prevention, #60 TAB 0 Refills Ascorbic Acid (Ascorbic Acid) 500 Mg Tab 500 MG PO DAILY, TAB Cubbvlgysu-Lewgzid-Cbrwxzut (Fiorinal) 50-325-40 Mg Cap 1 CAP PO Q4H PRN for HEADACHE, #15 CAP 0 Refills Do not exceed 6 capsules/day. Cyanocobalamin (Vitamin B-12) (Vitamin B-12) 50 Mcg Lozenge Gabapentin (Gabapentin) 300 Mg Cap 300 MG PO QID for health, #60 CAP 1 Refill Levetiracetam (Levetiracetam) 1,000 Mg Tab 1000 MG PO BID for Control Seizures, #60 TAB 0 Refills Levetiracetam (Levetiracetam) 500 Mg Tab 500 MG PO BID for Control Seizures, #60 TAB 0 Refills Levothyroxine (Levothyroxine) 25 Mcg Tab 25 MCG PO DAILY for Thyroid, #30 TAB 0 Refills Lidocaine (Lidoderm) 5 % Adh..patch 1 PATCH T-DERMAL DAILY for health, #30 PATCH 0 Refills Lisinopril (Lisinopril) 30 Mg Tab 30 MG PO DAILY for Blood Pressure Management, #30 TAB 0 Refills Loperamide (Loperamide) 2 Mg Cap 2 MG PO DIRECTED PRN for DIARRHEA, CAP 0 Refills One capsule after each loose stool. Not to exceed 8 capsules per day. Metoprolol Tartrate (Metoprolol Tartrate) 25 Mg Tab 25 MG PO BID for health, #60 TAB 0 Refills Ondansetron Odt (Zofran Odt) 4 Mg Tab 4 MG SL Q8HR PRN for Nausea/Vomiting, #30 TAB 0 Refills Oxcarbazepine (Oxcarbazepine) 300 Mg Tab 450 MG PO BID for Seizure Control, #90 TAB 0 Refills Pantoprazole (Protonix) 40 Mg Tab 40 MG PO DAILY for Reflux, #30 TAB 0 Refills Phenytoin Extended (Dilantin) 100 Mg Cap 150 MG PO BID for Control Seizures, #90 CAP 0 Refills Polyvinyl Alcohol Opth Drops (Artificial Tears Opth Drops) 1.4% Soln 1 DROP EACH EYE Q4H for health, #1 BOTTLE 0 Refills Sertraline (Zoloft) 100 Mg Tab 100 MG PO DAILY for depression, #30 TAB 0 Refills Discontinued Medications: Acetaminophen (Tylenol) 325 Mg Tab 325 MG PO Q4H PRN for PAIN SCALE 1 TO 5, TAB 0 Refills Wilian Peralta MD Feb 10, 2018 09:50
[2018-02-10] MEDS: LIDOCAINE HCL 5% PATCH T-DERMAL SCH (10:46)
[2018-02-10] MEDS: ASCORBIC ACID 500 MG TAB PO SCH (10:47)
[2018-02-10] MEDS: OXcarbazepine 300 MG TAB PO SCH ×2 (10:47→21:01)
[2018-02-10] MEDS: SODIUM CHLORIDE 0.9% FLUSH 10 ML FLUSH IV FLUSH SCH ×2 (10:47→21:03)
[2018-02-10] MEDS: PHENYTOIN SUSP 100 MG/4 ML CUP PO SCH ×2 (10:48→21:04)
[2018-02-10] MEDS: cloNIDine HCL 0.1 MG TAB PO SCH ×2 (10:48→21:01)
[2018-02-10] MEDS: GABAPENTIN 300 MG CAP PO SCH ×4 (10:48→21:01)
[2018-02-10] MEDS: METOPROLOL TARTRATE 25 MG TAB PO SCH ×2 (10:49→21:02)
[2018-02-10] MEDS: APIXABAN 2.5 MG TABLET PO SCH ×2 (10:49→21:02)
[2018-02-10] MEDS: SERTRALINE HCL 100 MG TAB PO SCH (10:49)
[2018-02-10] MEDS: levETIRAcetam 500 MG TAB PO SCH ×2 (10:50→21:02)
[2018-02-10] MEDS: PANTOPRAZOLE SOD 40 MG DELAYED RELEASE TAB PO SCH (10:51)
[2018-02-10] MEDS: LISINOPRIL 20 MG TAB PO SCH (10:51)
[2018-02-10] MEDS: ONDANSETRON HCL 4 MG/2 ML VIAL IV PUSH PRN ×2 (16:36→21:02)
[2018-02-10] MEDS: REMOVE OLD LIDOCAINE PATCH T-DERMAL SCH (21:00)
[2018-02-11] MEDS: ARTIFICIAL TEARS OPTH SOLN 15 ML BTL EACH EYE SCH ×4 (00:23→11:46)
[2018-02-11] MEDS: CEFUROXIME AXETIL 250 MG TAB PO SCH (02:28)
[2018-02-11] MEDS: LEVOTHYROXINE SODIUM 25 MCG TAB PO SCH (06:21)
[2018-02-11] MEDS: ONDANSETRON HCL 4 MG/2 ML VIAL IV PUSH PRN (06:35)
[2018-02-11] MEDS: HYDROmorphone HCL PF 2 MG/ML VIAL IV PUSH PRN (06:36)
[2018-02-11 07:00] VITALS: PULSE 58
[2018-02-11 09:54] VITALS: BP 117/61; PULSE 66; RESP 18; TEMP 98.6; O2SAT 96
[2018-02-11] MEDS: SODIUM CHLORIDE 0.9% FLUSH 10 ML FLUSH IV FLUSH SCH (11:35)
[2018-02-11] MEDS: PHENYTOIN SUSP 100 MG/4 ML CUP PO SCH (11:37)
[2018-02-11] MEDS: LISINOPRIL 20 MG TAB PO SCH (11:40)
[2018-02-11] MEDS: PANTOPRAZOLE SOD 40 MG DELAYED RELEASE TAB PO SCH (11:42)
[2018-02-11] MEDS: levETIRAcetam 500 MG TAB PO SCH (11:43)
[2018-02-11] MEDS: OXcarbazepine 300 MG TAB PO SCH (11:43)
[2018-02-11] MEDS: SERTRALINE HCL 100 MG TAB PO SCH (11:43)
[2018-02-11] MEDS: cloNIDine HCL 0.1 MG TAB PO SCH (11:44)
[2018-02-11] MEDS: GABAPENTIN 300 MG CAP PO SCH (11:44)
[2018-02-11] MEDS: METOPROLOL TARTRATE 25 MG TAB PO SCH (11:44)
[2018-02-11] MEDS: ASCORBIC ACID 500 MG TAB PO SCH (11:45)
[2018-02-11] MEDS: APIXABAN 2.5 MG TABLET PO SCH (11:45)
[2018-02-11] MEDS: LIDOCAINE HCL 5% PATCH T-DERMAL SCH (11:47)
== END 2018-02-11 12:35 | disposition home health service (06) | DRG 690 ==
LOC: NEPC 14:56 → NEDA 17:23 → OBSVTOIN 20:09 → NEPFCDU 21:08
PROVIDERS: ADMIT Family Medicine; ATTEND Family Medicine
DX: N39.0 Urinary tract infection, site not specified (principal); I50.9 Heart failure, unspecified; I11.0 Hypertensive heart disease with heart failure; J44.9 Chronic obstructive pulmonary disease, unspecified; F33.9 Major depressive disorder, recurrent, unspecified; G43.909 Migraine, unspecified, not intractable, without status migrainosus; K31.84 Gastroparesis; G40.909 Epilepsy, unspecified, not intractable, without status epilepticus; G62.9 Polyneuropathy, unspecified; F41.9 Anxiety disorder, unspecified; E78.5 Hyperlipidemia, unspecified; E03.9 Hypothyroidism, unspecified; I25.10 Atherosclerotic heart disease of native coronary artery without angina pectoris; K21.9 Gastro-esophageal reflux disease without esophagitis; M10.9 Gout, unspecified; M19.90 Unspecified osteoarthritis, unspecified site; B96.1 Klebsiella pneumoniae [K. pneumoniae] as the cause of diseases classified elsewhere; Z79.01 Long term (current) use of anticoagulants; Z86.14 Personal history of Methicillin resistant Staphylococcus aureus infection; Z86.718 Personal history of other venous thrombosis and embolism; Z86.73 Personal history of transient ischemic attack (TIA), and cerebral infarction without residual deficits; Z88.5 Allergy status to narcotic agent; Z89.611 Acquired absence of right leg above knee; Z91.041 Radiographic dye allergy status; Z95.5 Presence of coronary angioplasty implant and graft; Z96.651 Presence of right artificial knee joint; Z96.661 Presence of right artificial ankle joint; Z99.3 Dependence on wheelchair
CPT/HCPCS: 70450; 74176; 80053; 80183; 80185; 80307; 81001; 82140; 82550; 82948; 84443; 84484; 85025; 87077; 87086; 87186; 93005; 95819; 99285; J0696; J1170; J1885; J2405

== ENCOUNTER 2018-02-27 18:18 | Emergency (ER) | payer MEDICARE, MEDICAID ==
[~2018-02-27] VITALS: Ht 157.5 cm; Wt 72.0 kg
[~2018-02-27 18:18] MED LIST changes: +CEFU1TAB18 PO; +LEVE10003 PO; -TYLE325T PO
[2018-02-27 18:49] VITALS: BP 179/87; PULSE 57; RESP 17; TEMP 98.5; O2SAT 97
[2018-02-27] MEDS ORDERED: CLON.1 PO (19:03)
[2018-02-27] MEDS ORDERED: TYLE325T PO (19:03)
[2018-02-27] MEDS ORDERED: ACETAMIN 325 MG/BUTALBITAL 50 MG/CAFFEINE 40 MG TAB PO ONE (19:15)
[2018-02-27] MEDS ORDERED: diphenhydrAMINE HCL 50 MG/ML VIAL IV PUSH ONE (19:15)
[2018-02-27] MEDS ORDERED: SODIUM CHLORIDE 0.9% FLUSH 10 ML FLUSH IVF PRN (19:15)
--- NOTE | 2018-02-27 19:29 | PD ---
HPI Chief Complaint: GI Complaint Time Seen by Provider: 19:08 Travel History International Travel<30 days: No Contact w/Intl Traveler<30days: No Traveled to known affect area: No History of Present Illness HPI Patient is a 67 year old female with a history of gastroparesis, chronic migraines presents to the ER for evaluation of headache for the past month. She states that she felt like she was going to throw up tonight and thats why she called 911. When prompted as to what usually happens when she comes to the ER for this she usually gets dilaudid. Patient denies thunderclap presentation. She denies falls today but on examination she had small amount of dried blood on her forehead and states that she fell yesterday. States headache is severe, duration is a month, context and associated s/s as above. PFSH Past Medical History Hx Anticoagulant Therapy: Yes (Eliquis) Anemia: Yes Arthritis: Yes Asthma: Yes Autoimmune Disease: No Blood Disorders: No Anxiety: Yes Depression: Yes Heart Rhythm Problems: Yes (SVT ) Cancer: No Cardiac Catheterization: Yes (X2) Cardiovascular Problems: Yes High Cholesterol: Yes Chemotherapy: Yes Chest Pain: Yes Congestive Heart Failure: Yes COPD: Yes Cerebrovascular Accident: Yes Coronary Artery Disease: Yes Diabetes: No Diminished Hearing: No Deep Vein Thrombosis: Yes (PE, DVT) Endocrine: Yes Gastrointestinal Disorders: Yes (GASTROPARESIS) GERD: Yes Gout: Yes Genitourinary: No Headaches: Yes Hiatal Hernia: No Hypertension: Yes Immune Disorder: No Implanted Vascular Access Dvce: Yes (HX OF PORT) Kidney Stones: No Musculoskeletal: Yes (arthritis) Neurologic: Yes (4 CVA's and seizure) Psychiatric: Yes Reproductive: No Respiratory: Yes Integumentary: Yes (HX OF MRSA) Immunizations Current: No Migraines: Yes Pancreatitis: Yes Radiation Therapy: No Renal Failure: No Seizures: Yes Sickle Cell Disease: No Sleep Apnea: No Thyroid Disease: Yes (HYPO) Ulcer: Yes PNEUMOCCOCAL Vaccine (Year): 2008 ?: Not Menopausal: Yes : 6 Para: 3 Miscarriage: 3 Ovarian Cysts: Yes Past Surgical History Abdominal Surgery: Yes (COLON RESECTION, G TUBE PLACEMENT/ AND REMOVAL) AICD: No Appendectomy: Yes Arteriovenous Shunt: No Body Medical Devices: total knee replacement Cardiac Surgery: Yes Section: Yes (1) Cholecystectomy: Yes Coronary Stent: Yes Ear Surgery: No Endocrine Surgery: No Eye Surgery: No Genitourinary Surgery: No Gynecologic Surgery: Yes () Hysterectomy: Yes Insulin Pump: No Joint Replacement: Yes (R ANKLE, R TOTAL KNEE May,) Neurologic Surgery: No Oral Surgery: Yes Pacemaker: No Thoracic Surgery: Yes Tonsillectomy: Yes (T&A) Other Surgery: Yes (IVC filter ) Family History Family Myocardial Infarction: Yes Family Hypercholesterolemia: Yes Social History Alcohol Use: No Tobacco Use: No Substance Use: No Allergies-Medications (Allergen,Severity, Reaction): Coded Allergies: Iodinated Contrast- Oral and IV Dye (Verified Allergy, Severe, CARDIAC ARREST, 02/27/18) adhesive (Unverified Allergy, Severe, BLISTER, 02/27/18) amlodipine (Unverified Allergy, Severe, "EKG CHANGES", 02/27/18) amylase (Unverified Allergy, Severe, RASH/SHOB, 02/27/18) atorvastatin (Unverified Allergy, Severe, "STATIN DRUGS"-RHABDOMYLIASIS, ) codeine (Unverified Allergy, Severe, RASH, 02/27/18) diatrizoate meglumine (Unverified Allergy, Severe, PT CODED, 02/27/18) diltiazem (Unverified Allergy, Severe, "EKG CHANGES", 02/27/18) enalaprilat (Unverified Allergy, Severe, 02/27/18) erythromycin base (Unverified Allergy, Severe, SVT, ARRHYTHMIAS, 02/27/18) gadobenic acid (Unverified Allergy, Severe, PT CODED, 02/27/18) gadodiamide (Unverified Allergy, Severe, PT CODED, 02/27/18) gadoteridol (Unverified Allergy, Severe, PT CODED, 02/27/18) iodine (Unverified Allergy, Severe, Anaphylaxis, 02/27/18) iodixanol (Unverified Allergy, Severe, PT CODED, 02/27/18) iohexol (Unverified Allergy, Severe, PT CODED, 02/27/18) isradipine (Unverified Allergy, Severe, "EKG CHANGES", 02/27/18) lipase (Unverified Allergy, Severe, RASH/SHOB, 02/27/18) metoclopramide (Unverified Allergy, Severe, TREMORS, 02/27/18) nalbuphine (Unverified Allergy, Severe, TREMORS, 02/27/18) nicardipine (Unverified Allergy, Severe, "EKG CHANGES", 02/27/18) nifedipine (Unverified Allergy, Severe, "EKG CHANGES", 02/27/18) nimodipine (Unverified Allergy, Severe, 02/27/18) potassium iodide (Unverified Allergy, Severe, Anaphylaxis, 02/27/18) povidone-iodine (Unverified Allergy, Severe, Anaphylaxis, 02/27/18) prochlorperazine (Unverified Allergy, Severe, SHAKES, 02/27/18) promethazine (Unverified Allergy, Severe, 02/27/18) PER PATIENT protease (Unverified Allergy, Severe, RASH/SHOB, 02/27/18) sodium iodide (Unverified Allergy, Severe, Anaphylaxis, 02/27/18) sodium iodide (Unverified Allergy, Severe, Anaphylaxis, 02/27/18) verapamil (Unverified Allergy, Severe, "EKG CHANGES", 02/27/18) Ymynnbh-Qpx-Sop Reductase Inhibitor (Verified Allergy, Intermediate, RHABDO, 02/27/18) Uncoded Allergies: LICORICE (Allergy, Severe, Anaphylaxis, 12/13/11) PER PATIENT NUTRASWEET (Adverse Reaction, Severe, HEADACHES, 08/28/10) Reported Meds & Prescriptions Reported Meds & Active Scripts Active Artificial Tears Opth Drops (Polyvinyl Alcohol) 1.4% Soln 1 Drop EACH EYE Q4H Dilantin (Phenytoin Extended) 100 Mg Cap 150 Mg PO BID Lisinopril 30 Mg Tab 30 Mg PO DAILY Gabapentin 300 Mg Cap 300 Mg PO QID Eliquis (Apixaban) 2.5 Mg Tab 2.5 Mg PO BID Oxcarbazepine 300 Mg Tab 450 Mg PO BID Metoprolol Tartrate 25 Mg Tab 25 Mg PO BID Levothyroxine (Levothyroxine Sodium) 25 Mcg Tab 25 Mcg PO DAILY Protonix (Pantoprazole Sodium) 40 Mg Tab 40 Mg PO DAILY Zoloft (Sertraline HCl) 100 Mg Tab 100 Mg PO DAILY Reported Tylenol (Acetaminophen) 325 Mg Tab 325 Mg PO Q4H PRN Catapres (Clonidine) 0.1 Mg Tab 0.1 Mg PO BID Levetiracetam 500 Mg Tab 1,500 Mg PO BID Loperamide (Loperamide HCl) 2 Mg Cap 2 Mg PO DIRECTED PRN One capsule after each loose stool. Not to exceed 8 capsules per day. Ascorbic Acid 500 Mg Tab 500 Mg PO DAILY Review of Systems Except as stated in HPI: all other systems reviewed are Neg Physical Exam Narrative GENERAL: WD/ obese female in nad. Sitting comfortably, sleeping on initial eval. SKIN: Warm and dry. Small excoriation between eyebrows. Small dried blood superiorly to this. Otherwise atraumatic.No battles sign, no racoons eyes. HEAD: Normocephalic, other than small excoriation above no EYES: Pupils equal and round. No scleral icterus. No injection or drainage. ENT: No nasal bleeding or discharge. Mucous membranes pink and moist. NECK: Trachea midline. No JVD. CARDIOVASCULAR: Regular rate and rhythm. RESPIRATORY: No accessory muscle use. Clear to auscultation. Breath sounds equal bilaterally. GASTROINTESTINAL: Abdomen soft, non-tender, nondistended. Hepatic and splenic margins not palpable. MUSCULOSKELETAL: Extremities without clubbing, cyanosis, or edema. No obvious deformities. s/p aka on right. Otherwise full strength in extremities. Sensation normal. No midline c/t/l/spine tenderness. NEUROLOGICAL: Awake and alert. No obvious cranial nerve deficits. Motor grossly within normal limits. Five out of 5 muscle strength in the arms and legs. Normal speech. PSYCHIATRIC: Appropriate mood and affect; insight and judgment normal. Data Data Last Documented VS Vital Signs Date Time Temp Pulse Resp B/P (MAP) Pulse Ox O2 Delivery O2 Flow Rate FiO2 02/27/18 18:49 98.5 57 17 179/87 (117) 97 Room Air Orders Orders Diphenhydramine Inj (Benadryl Inj) (02/27/18 19:15) Ftam-Zlczc-Bgxi 325-50-40 Mg (Fioricet 3 (02/27/18 19:15) Ct Brain W/O Iv Contrast(Rout) (02/27/18 19:15) Ecg Monitoring (02/27/18 19:15) Iv Access Insert/Monitor (02/27/18 19:15) Oximetry (02/27/18 19:15) Sodium Chloride 0.9% Flush (Ns Flush) (02/27/18 19:15) Ketorolac Inj (Toradol Inj) (02/27/18 19:30) Ed Discharge Order (02/27/18 21:11) [facility] Medical Decision Making Medical Screen Exam Complete: Yes Emergency Medical Condition: Yes Differential Diagnosis Chronic migraine, chronic pain, gastritis, gastroparesis, acute abdomen highly unlikely, acute intracranial abnormality highly unlikely Narrative Course Patient room to the emergency department, from the onset of my encounter with her she appears quite comfortable, she was given Benadryl and Toradol, Fioricet. She has multiple allergies limiting her treatment further. She is requesting Dilaudid by name and then begins to bargain for it. On my reassessment she is still very calm and lying in the stretcher with her eyes closed sleeping, she arouses to verbal and then continue to bargain for Dilaudid. I have informed her that per aseptic recommendations opiates can cause rebound headaches and are not indicated for the treatment of an acute headache. She continued to bargain and at that point I informed her that she can follow-up with a neurologist for what appears to be a nonemergent routine headache for her. He verbalized understanding and is agreeing. Transport is being arranged for her to return to the facility Diagnosis Primary Impression: Headache Disposition: 03 DISCHARGE TO SNF Condition: Marcelo Shah MD Feb 27, 2018 19:29
[2018-02-27] MEDS ORDERED: KETOROLAC TROMETHAMINE 30 MG/ML (IVP) VIAL IV PUSH ONE (19:30)
--- NOTE | 2018-02-27 21:02 | RADRPT ---
EXAM DATE/TIME: 02/27/2018 20:40 [place] COMPARISON: CT BRAIN W/O CONTRAST, February 07, 2018, 15:49. INDICATIONS : Patient complains of migraine, nausea and vomiting. RADIATION DOSE: 36.57 CTDIvol (mGy) MEDICAL HISTORY : Cerebrovascular disease. Seizures. Cardiovascular diseasehypertension SURGICAL HISTORY : None. ENCOUNTER: Initial ACUITY: 2 months PAIN SCALE: 9/10 LOCATION: cranial TECHNIQUE: Multiple contiguous axial images were obtained of the head. Using automated exposure control and adj ustment of the mA and/or kV according to patient size, radiation dose was kept as low as reasonably a chievable to obtain optimal diagnostic quality images. DICOM format image data is available electro nically for review and comparison. FINDINGS: CEREBRUM: The ventricles are normal for age. No evidence of midline shift, mass lesion, hemorrhage or acute in farction. No extra-axial fluid collections are seen. POSTERIOR FOSSA: The cerebellum and brainstem are intact. The 4th ventricle is midline. The cerebellopontine angle i s unremarkable. EXTRACRANIAL: The visualized portion of the orbits is intact. SKULL: The calvaria is intact. No evidence of skull fracture. CONCLUSION: Negative for acute process Joel York MD FACR on February 27, 2018 at 21:00 Board Certified Radiologist. This report was verified electronically.
== END 2018-02-28 06:36 ==
LOC: NEPE 18:18
DX: R51 Headache (principal); E03.9 Hypothyroidism, unspecified; E78.00 Pure hypercholesterolemia, unspecified; I11.0 Hypertensive heart disease with heart failure; I50.9 Heart failure, unspecified; I25.10 Atherosclerotic heart disease of native coronary artery without angina pectoris; K21.9 Gastro-esophageal reflux disease without esophagitis
CPT/HCPCS: 70450; 96374; 96375; 99284; J1200; J1885

== ENCOUNTER 2018-10-11 17:41 | Observation (INO) ==
[2018-10-11] MEDS ORDERED: Sod Chloride 0.9% Inj 1,000 ML IV.SIG ONE (18:21)
[2018-10-11] MEDS ORDERED: HYDROmorphone PF Inj 2 MG/ML Vial IV.PUSH ONE (18:47)
--- NOTE | 2018-10-11 19:06 | ED ---
HPI General Chief Complaint: Fall Stated Complaint: Fall Injury Time Seen by Provider: 10/11/18 18:21 Source: patient and EMS Mode of arrival: EMS Limitations: physical limitation History of Present Illness HPI Narrative: Patient is a 68-year-old female with right AKA that slipped and fell while she was transferring from the toilet to the wheelchair. She denies head trauma but is on Eliquis for previous CVA. No LOC. She does have a palpable deformities on the right hip where she is having a lot of pain. She is hemodynamically stable. No other complaints at this time. MD complaint: Reports fall Onset (ago): minute(s) (30) Fall from: standing Fall witnessed: no Place fall occurred: home Loss of consciousness: none Symptoms prior to fall: Reports none Context: Reports tripped/slipped Location of injury - extremities: Right: thigh Severity: severe Severity scale (1-10): 10 Quality: Reports sharp Associated symptoms (after fall): Reports denies Related Data Home Medications Medication Instructions Recorded Confirmed gabapentin 300 mg PO TID 06/13/18 10/12/18 levothyroxine 25 mcg PO DAILY 06/13/18 10/11/18 metoprolol tartrate 12.5 mg PO BID 06/13/18 10/12/18 pantoprazole [Protonix] 40 mg PO DAILY 06/13/18 10/11/18 phenytoin sodium extended 100 mg PO BID 06/13/18 10/11/18 [Dilantin] sertraline [Zoloft] 100 mg PO DAILY 06/13/18 10/11/18 apixaban [Eliquis] 2.5 mg PO BID 10/12/18 10/12/18 ascorbic acid (vitamin C) [Vitamin 1,000 mg PO Q12H 10/12/18 10/12/18 C] diclofenac sodium [Voltaren] PRN 10/12/18 10/12/18 diphenoxylate-atropine 2 tab PO Q6-8H PRN 10/12/18 10/12/18 erenumab-aooe [Aimovig 140 mg SUBCUT QMONTH 10/12/18 10/12/18 Autoinjector] lacosamide [Vimpat] 100 mg PO BID 10/12/18 10/12/18 levetiracetam 1,500 mg PO BID 10/12/18 10/12/18 meclizine 25 mg PO DAILY PRN 10/12/18 10/12/18 omeprazole 20 mg PO BID 10/12/18 10/12/18 onabotulinumtoxinA [Botox] [id number] 10/12/18 oxcarbazepine 300 mg PO BID 10/12/18 10/12/18 topiramate 50 mg PO BID 10/12/18 10/12/18 vit D3-folic omtp-D4-E0-B12 10/12/18 vit C-N9-M9-[id number]-G05-FXV-Q10 10/12/18 Previous Rx's Medication Instructions Recorded hydrocodone-acetaminophen 1 tab PO Q8H PRN 3 Days #9 tab 10/12/18 Allergies Allergy/AdvReac Type Severity Reaction Status Date / Time adhesive Allergy Severe BLISTER Verified 06/13/18 21:44 amlodipine Allergy Severe "EKG Verified 06/13/18 21:44 CHANGES" amylase Allergy Severe RASH/SHOB Verified 06/13/18 21:44 atorvastatin Allergy Severe "STATIN Verified 06/13/18 21:44 DRUGS"-RHABDOMYLIASIS codeine Allergy Severe RASH Verified 06/13/18 21:44 diatrizoate meglumine Allergy Severe PT CODED Verified 06/13/18 21:44 diltiazem Allergy Severe "EKG Verified 06/13/18 21:44 CHANGES" enalaprilat Allergy Severe Anaphylaxis Verified 06/13/18 21:44 erythromycin base Allergy Severe SVT, Verified 06/13/18 21:44 ARRHYTHMIAS gadobenic acid Allergy Severe PT CODED Verified 06/13/18 21:44 gadodiamide Allergy Severe PT CODED Verified 06/13/18 21:44 gadoteridol Allergy Severe PT CODED Verified 06/13/18 21:44 Iodinated Contrast- Oral and Allergy Severe CARDIAC Verified 06/13/18 21:44 IV Dye ARREST iodine Allergy Severe Anaphylaxis Verified 06/13/18 21:44 iodixanol Allergy Severe PT CODED Verified 06/13/18 21:44 iohexol Allergy Severe PT CODED Verified 06/13/18 21:44 isradipine Allergy Severe "EKG Verified 06/13/18 21:44 CHANGES" lipase Allergy Severe RASH/SHOB Verified 06/13/18 21:44 metoclopramide Allergy Severe TREMORS Verified 06/13/18 21:44 nalbuphine Allergy Severe TREMORS Verified 06/13/18 21:44 nicardipine Allergy Severe "EKG Verified 06/13/18 21:44 CHANGES" nifedipine Allergy Severe "EKG Verified 06/13/18 21:44 CHANGES" nimodipine Allergy Severe Anaphylaxis Verified 06/13/18 21:44 potassium iodide Allergy Severe Anaphylaxis Verified 06/13/18 21:44 povidone-iodine Allergy Severe Anaphylaxis Verified 06/13/18 21:44 prochlorperazine Allergy Severe SHAKES Verified 06/13/18 21:44 promethazine Allergy Severe Anaphylaxis Verified 06/13/18 21:44 protease Allergy Severe RASH/SHOB Verified 06/13/18 21:44 sodium iodide Allergy Severe Anaphylaxis Verified 06/13/18 21:44 sodium iodide Allergy Severe Anaphylaxis Verified 06/13/18 21:44 verapamil Allergy Severe "EKG Verified 06/13/18 21:44 CHANGES" Lizcvdu-Nhb-Rgm Reductase Allergy Intermediate RHABDO Verified 02/27/18 18:52 Inhibitor NUTRASWEET Allergy Severe Headache Uncoded 06/13/18 21:44 LICORICE Allergy Anaphylaxis Uncoded 06/13/18 21:44 Review of Systems ROS: all other systems reviewed are negative [facility] Medical History Medical History Anemia (Acute) Asthma (Acute) C. difficile diarrhea (Acute) CAD (coronary artery disease) (Acute) CHF (congestive heart failure) (Acute) COPD (chronic obstructive pulmonary disease) (Acute) CVA (cerebral vascular accident) (Acute) DVT (deep venous thrombosis) (Acute) ESBL (extended spectrum beta-lactamase) producing bacteria infection (Acute) Emphysema lung (Acute) Gastroparesis (Acute) Marble filter in place (Acute) Head trauma (Acute) History of chemotherapy (Acute) History of right above knee amputation (Acute) Hx of half-way use of blood thinners (Acute) Hypertension (Acute) Hypothyroid (Acute) Irregular heart beat (Acute) MRSA (methicillin resistant Staphylococcus aureus) (Acute) Pancreatitis (Acute) Pulmonary embolism (Acute) SVT (supraventricular tachycardia) (Acute) Seizure (Acute) Ulcer (Acute) VRE (vancomycin-resistant Enterococci) (Acute) Surgical History Surgical History H/O oral surgery (Acute) History of appendectomy (Acute) History of cholecystectomy (Acute) History of colon resection (Acute) Hx of tonsillectomy (Acute) Stented coronary artery (Acute) Social History Social History Substance History: No History of Abuse Second Hand Smoke Exposure: Yes (Previously) Smoking Status: Never smoker How Often Do You Have a Drink Containing Alcohol: Never Hx Recent Travel: No Recent Travel in [facility] within the Last 8 Weeks: No Recent Out of Country Travel within the Last 8 Weeks: No Immunization History Tetanus Immunization: Unsure Exam Narrative Exam Narrative: GENERAL: Alert and oriented in mild distress due to pain. SKIN: Focused skin assessment warm/dry. HEAD: Atraumatic. Normocephalic. EYES: Pupils equal and round. No scleral icterus. No injection or drainage. ENT: No nasal bleeding or discharge. Mucous membranes pink and moist. NECK: Trachea midline. No JVD. CARDIOVASCULAR: Regular rate and rhythm. No murmur appreciated. RESPIRATORY: No accessory muscle use. Clear to auscultation. Breath sounds equal bilaterally. GASTROINTESTINAL: Abdomen soft, non-tender, nondistended. Hepatic and splenic margins not palpable. MUSCULOSKELETAL: Deformities palpated in the right proximal thigh. [place] tenderness to palpation. No broken skin. right AKA NEUROLOGICAL: Awake and alert. No obvious cranial nerve deficits. Motor grossly within normal limits. Normal speech. PSYCHIATRIC: Appropriate mood and affect; insight and judgment normal. Course Initial Documented Vital Signs Pulse Rate 75 10/11/18 18:02 Respiratory Rate 18 10/11/18 18:02 Blood Pressure 145/66 H 10/11/18 18:02 Pulse Oximetry 98 10/11/18 18:02 Last Documented Vital Signs Temperature 99.2 F 10/13/18 12:00 Pulse Rate 70 10/13/18 12:00 Respiratory Rate 16 10/13/18 12:00 Blood Pressure 163/79 H 10/13/18 12:00 Pulse Oximetry 16 L 10/13/18 12:00 Sign Out Sign Out Data: Patient Sign Out occurred on 10/11/18 at 19:16. Patient's care was discussed, and [facility] Sign Out Comment: Patient status post fall with likely right hip fracture. Patient care transferred to oncoming physician Last updated by Spencer Cantu DO at 10/11/18 19:15 Post-Handoff Eval: 68-year-old female came to the emergency room after sustaining a fall that was purely mechanical while she was transferring from the bed to the chair. In the process she injured her right hip and hit her head on the bed rail. She was seen by the previous ER physician who had ordered CT of her head and the right hip. I went and saw the patient and she was complaining mostly of the right hip pain. There is a developing hematoma on that side. Patient has been complaining mainly of the right hip pain. She has received adequate pain medications at this point. CAT scan of the hip does not show any fracture. CAT scan of the head shows a questionable punctate hemorrhage. I discussed the case with the neurosurgeon Dr. Mancera who has recommended the patient to be admitted under trauma service and a repeat CT in the morning. He also wanted neurology to be consulted for her complex migraine complaints. I discussed the case with Dr. Garcia who is on for neurology today and also happens to be her neurologist. He does not think at this point her Eliquis needs to be held. He will consult on the patient. I discussed this with Dr. Pastor who will admit the patient from trauma service. Medical Decision Making MDM Narrative Medical Screen Exam Complete: Yes Emergency Medical Condition: Yes Lab Data Result diagrams: 10/11/18 18:53 10/11/18 18:53 Lab Results 10/11/18 10/11/18 10/11/18 Range/Units 18:53 18:53 18:53 WBC 6.2 (4.0-11.0) th/mm3 RBC 4.50 (4.00-5.30) mil/mm3 Hgb 12.8 (11.6-15.3) gm/dL Hct 38.9 (35.0-46.0) % MCV 86.6 (80.0-100.0) fL MCH 28.4 (27.0-34.0) pg MCHC 32.8 (32.0-36.0) % RDW 14.6 (11.6-17.2) % Plt Count 309 (150-450) th/mm3 MPV 7.6 (7.0-11.0) fL Neut % (Auto) 62.5 (16.0-70.0) % Lymph % (Auto) 26.0 (9.0-44.0) % [place] % (Auto) 8.9 H (0.0-8.0) % Eos % (Auto) 2.1 (0.0-4.0) % Baso % (Auto) 0.5 (0.0-2.0) % Neut # (Auto) 3.8 (1.8-7.7) th/mm3 Lymph # (Auto) 1.6 (1.0-4.8) th/mm3 [place] # (Auto) 0.5 (0.0-0.9) th/mm3 Eos # (Auto) 0.1 (0.0-0.4) th/mm3 Baso # (Auto) 0.0 (0.0-0.2) th/mm3 WBC Differential . Differential Comment Auto diff final PT 10.4 (9.8-11.6) sec INR 1.0 Ratio APTT 25.2 (23.4-31.7) sec Sodium 143 (136-145) meq/L Potassium 4.1 (3.5-5.1) meq/L Chloride 111 H (98-107) meq/L Carbon Dioxide 25.6 (21.0-32.0) meq/L Anion Gap 6 (5-15) meq/L BUN 9 (7-18) mg/dL Creatinine 0.96 (0.50-1.00) mg/dL Estimated GFR 58 L (>89) mL/min Random Glucose 97 (74-106) mg/dL Calcium 8.6 (8.5-10.1) mg/dL Total Bilirubin 0.2 (0.2-1.0) mg/dL AST 28 (15-37) U/L ALT 17 (10-53) U/L Alkaline Phosphatase 141 H (45-117) U/L Total Protein 7.2 (6.4-8.2) g/dL Albumin 3.1 L (3.4-5.0) g/dL Nasal Screen MRSA (PCR) (Negative) 10/12/18 Range/Units 09:30 WBC (4.0-11.0) th/mm3 RBC (4.00-5.30) mil/mm3 Hgb (11.6-15.3) gm/dL Hct (35.0-46.0) % MCV (80.0-100.0) fL MCH (27.0-34.0) pg MCHC (32.0-36.0) % RDW (11.6-17.2) % Plt Count (150-450) th/mm3 MPV (7.0-11.0) fL Neut % (Auto) (16.0-70.0) % Lymph % (Auto) (9.0-44.0) % [place] % (Auto) (0.0-8.0) % Eos % (Auto) (0.0-4.0) % Baso % (Auto) (0.0-2.0) % Neut # (Auto) (1.8-7.7) th/mm3 Lymph # (Auto) (1.0-4.8) th/mm3 [place] # (Auto) (0.0-0.9) th/mm3 Eos # (Auto) (0.0-0.4) th/mm3 Baso # (Auto) (0.0-0.2) th/mm3 WBC Differential Differential Comment PT (9.8-11.6) sec INR Ratio APTT (23.4-31.7) sec Sodium (136-145) meq/L Potassium (3.5-5.1) meq/L Chloride (98-107) meq/L Carbon Dioxide (21.0-32.0) meq/L Anion Gap (5-15) meq/L BUN (7-18) mg/dL Creatinine (0.50-1.00) mg/dL Estimated GFR (>89) mL/min Random Glucose (74-106) mg/dL Calcium (8.5-10.1) mg/dL Total Bilirubin (0.2-1.0) mg/dL AST (15-37) U/L ALT (10-53) U/L Alkaline Phosphatase (45-117) U/L Total Protein (6.4-8.2) g/dL Albumin (3.4-5.0) g/dL Nasal Screen MRSA (PCR) Not detected (Negative) Imaging Data Radiologist's impression: Head CT 10/11/18 18:21 CONCLUSION: 1. Solitary new punctate hyperdensity in the right basal ganglia may represent focal hemorrhage. Recommend follow-up scans. 2. Otherwise, stable CT brain. . Hip CT 10/11/18 18:51 CONCLUSION: 1. Djncv-oky-[id number] amputation right lower extremity. 2. No evidence of acute fracture. Head MRI 10/11/18 20:28 CONCLUSION: 1. No evidence of acute hemorrhage or cerebral edema. 2. No evidence of acute infarction. 3. 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 Head MRA 10/11/18 20:28 CONCLUSION: 1. Negative MRA of the [place]. Discharge Plan Discharge Disposition Patient Disposition: Discharge Home Discharge Condition Condition: Stable Discharge Order Discharge Orders: Discharge Order (Routine); Ordered 10/13/18 Ordered By: Nicole Johnson Discharge Details Anticipated Discharge Date: 10/13/18 Physicians Team ED Provider: Gerardo Kay Primary Care Provider: Umesh Barrett Attending Provider: Justin Pastor Other Providers: Omid Garcia ; Justin Pastor ; Zhang Hughes ; [employer] ; Bipin Pabon ; Nicole Johnson ; Devon Hackett ; Mecca Jaramillo ; Manjit Cao ; Charlene Casarez ; Umesh Barrett ; Albino Mancera Status ED Status: Left Department Discharge Information Discharge Date/Time: 10/12/18 00:52
--- NOTE | 2018-10-11 19:15 | CT ---
EXAM DATE: 10/11/2018 7:07 PM EST AGE/SEX: 68 years / Female INDICATIONS: Trauma; fall. CLINICAL DATA: This is the patient's initial encounter. Patient reports that signs and symptoms have been present for 1 day and indicates a pain score of 10/10. MEDICAL/SURGICAL HISTORY: Anemia. Congestive heart failure. Chronic obstructive pulmonary disease . Asthma, C-diff, DVT, Pancreatitis, MRSA, Seizure Cholecystectomy. Appendectomy. Colon resection . Tonsillectomy, Coronary stent. RADIATION DOSE: 59.62 CTDI (mGy) COMPARISON: [facility] – [place] HEAD W/O CONTRAST, 06/13/2018. . TECHNIQUE: CT of the head without contrast. Using automated exposure control and adjustment of the mA and/or kV according to patient size, radiation dose was kept as low as reasonably achievable to ob tain optimal diagnostic quality images. DICOM format image data is available electronically for revi ew and comparison. FINDINGS: Cerebrum: The ventricles are normal in size. Midline structures are not deviated. There is a solitar y punctate hyperdensity in the medial right basal ganglia which is a new finding from prior CT (image #14). No evidence of cerebral edema. No extra-axial fluid or blood. Prominence of the left supracalc arine fissure is unchanged from prior. Posterior Fossa: The cerebellum and brainstem are intact. The 4th ventricle is midline. The cerebe llopontine angle is unremarkable. Extracranial: The visualized portion of the orbits is intact. Skull: The calvaria is intact. No evidence of skull fracture. CONCLUSION: 1. Solitary new punctate hyperdensity in the right basal ganglia may represent focal hemorrhage. Rec ommend follow-up scans. 2. Otherwise, stable CT brain. . Electronically signed by: King Obrien MD 10/11/2018 7:13 PM EST
[2018-10-11 19:19] LABS: Baso % (Auto) 0.5 % (0.0-2.0); Eos # (Auto) 0.1 th/mm3 (0.0-0.4); Eos % (Auto) 2.1 % (0.0-4.0); Hematocrit 38.9 % (35.0-46.0); Hemoglobin 12.8 gm/dL (11.6-15.3); Lymph # (Auto) 1.6 th/mm3 (1.0-4.8); Mean Corpuscular HGB Conc 32.8 % (32.0-36.0); Mean Corpuscular Hemoglobin 28.4 pg (27.0-34.0); Mean Corpuscular Volume 86.6 fL (80.0-100.0); Mean Platelet Volume 7.6 fL (7.0-11.0); Mono # (Auto) 0.5 th/mm3 (0.0-0.9); Mono % (Auto) 8.9 % (0.0-8.0); Neut # (Auto) 3.8 th/mm3 (1.8-7.7); Neut % (Auto) 62.5 % (16.0-70.0); Platelet Count 309 th/mm3 (150-450); Red Cell Distribution Width 14.6 % (11.6-17.2); White Blood Count 6.2 th/mm3 (4.0-11.0)
[2018-10-11 19:29] LABS: Activated Partial Thrombo Time 25.2 sec (23.4-31.7); Prothrombin Time 10.4 sec (9.8-11.6)
[2018-10-11 19:33] LABS: Alanine Aminotransferase 17 U/L (10-53)
[2018-10-11 19:35] LABS: Alkaline Phosphatase 141 U/L (45-117); Total Protein 7.2 g/dL (6.4-8.2)
[2018-10-11 19:38] LABS: Albumin 3.1 g/dL (3.4-5.0); Anion Gap 6 meq/L (5-15); Aspartate Aminotransferase 28 U/L (15-37); Blood Urea Nitrogen 9 mg/dL (7-18); Calcium 8.6 mg/dL (8.5-10.1); Carbon Dioxide 25.6 meq/L (21.0-32.0); Chloride 111 meq/L (98-107); Glomerular Filtration Rate 58 mL/min (>89); Glucose,Random 97 mg/dL (74-106); Sodium 143 meq/L (136-145)
[2018-10-11 19:43] LABS: Potassium 4.1 meq/L (3.5-5.1)
--- NOTE | 2018-10-11 19:58 | CT ---
EXAM DATE: 10/11/2018 7:18 PM EST AGE/SEX: 68 years / Female INDICATIONS: Trauma; fall. Right hip pain. CLINICAL DATA: This is the patient's initial encounter. Patient reports that signs and symptoms have been present for 1 day and indicates a pain score of 10/10. MEDICAL/SURGICAL HISTORY: Asthma. Chronic obstructive pulmonary disease. Congestive heart failure . C-diff, Anemia, Pancreatitis, DVT, Hypothyroid Cholecystectomy. Colon resection. Appendectomy. Coronary artery stent, Tonsillectomy, [place] filter RADIATION DOSE: 10.23 CTDI (mGy) COMPARISON: No prior exams available for comparison. TECHNIQUE: Multiple contiguous axial images were acquired using a multirow detector CT scanner witho ut contrast. Multiplanar reconstruction was performed in the sagittal and coronal planes. Using aut omated exposure control and adjustment of the mA and/or kV according to patient size, radiation dose was kept as low as reasonably achievable to obtain optimal diagnostic quality images. DICOM format i mage data is available electronically for review and comparison. FINDINGS: There is evidence of prior right lower extremity amputation at the level the distal femoral shaft. Cameron ne alignment is within normal limits. No evidence of fracture. Small right hip osteophytes. No eviden ce of joint narrowing. Moderate fatty atrophy of the thigh muscles. Diffuse arterial calcification. IVC filter is in place. Facet arthrosis of the lower lumbar spine. CONCLUSION: 1. [id number] amputation right lower extremity. 2. No evidence of acute fracture. Electronically signed by: Abel Peck MD 10/11/2018 7:57 PM EST
[2018-10-11] MEDS ORDERED: Morphine Sulfate Inj 8 MG/ML Vial IV.PUSH ONE (20:34)
--- NOTE | 2018-10-11 20:42 | P.CONNS ---
History of Present Illness Primary Care Provider: Umesh Barrett DO Chief Complaint: Fall History of Present Illness: 68yoF with Protein S deficiency, on Eliquis, history of 4 strokes in the past, seen by Dr. Rapp here for migraines and seizures. S/p R BKA, while transferring today fell. Head CT showing possible right basal ganglia punctate hemorrhage vs. artifact, patient GCS 15. She has a history of complicated migraines (receives Botox), but for the past several days, has had a much worse than usual migraine and difficulty seeing. This is worse even today and not like her usual migraines. She also endorses a very painful right hip (which is her chief complaint) and may be developing a hematoma here. History of Right BKA when her knee replacement developed hematoma (on Xarelto) and superinfection with MRSA. Also several ports in and out due to MRSA and a PEG tube removed due to MRSA. [facility] - History History Provided By: Patient - Medical History Medical History: Medical History (Last Reviewed 10/11/18 @ 19:36 by Spencer Cantu DO) Anemia Asthma C. difficile diarrhea CAD (coronary artery disease) CHF (congestive heart failure) COPD (chronic obstructive pulmonary disease) CVA (cerebral vascular accident) DVT (deep venous thrombosis) ESBL (extended spectrum beta-lactamase) producing bacteria infection Emphysema lung Gastroparesis [place] filter in place Head trauma History of chemotherapy History of right above knee amputation Hx of fpc use of blood thinners Hypertension Hypothyroid Irregular heart beat MRSA (methicillin resistant Staphylococcus aureus) Pancreatitis Pulmonary embolism SVT (supraventricular tachycardia) Seizure Ulcer VRE (vancomycin-resistant Enterococci) - Surgical History Surgical History: Surgical History (Last Reviewed 10/11/18 @ 19:36 by Spencer Cantu DO) H/O oral surgery History of appendectomy History of cholecystectomy History of colon resection Hx of tonsillectomy Stented coronary artery - Tobacco History Second Hand Smoke Exposure: No Tobacco Use In Past 30 Days: No Smoking Status: Never smoker - Alcohol History How Often Do You Have a Drink Containing Alcohol: Never - Substance Use History Substance History: No History of Abuse - Travel History Recent Travel in the [place] Within the Last 8 Weeks: No Recent Travel Out of the Country Within the Last 8 Weeks: No - Immunization History Tetanus Immunization: Unsure Medications and Allergies Allergies Allergy/AdvReac Type Severity Reaction Status Date / Time adhesive Allergy Severe BLISTER Verified 06/13/18 21:44 amlodipine Allergy Severe "EKG Verified 06/13/18 21:44 CHANGES" amylase Allergy Severe RASH/SHOB Verified 06/13/18 21:44 atorvastatin Allergy Severe "STATIN Verified 06/13/18 21:44 DRUGS"-RHABDOMYLIASIS codeine Allergy Severe RASH Verified 06/13/18 21:44 diatrizoate meglumine Allergy Severe PT CODED Verified 06/13/18 21:44 diltiazem Allergy Severe "EKG Verified 06/13/18 21:44 CHANGES" enalaprilat Allergy Severe Anaphylaxis Verified 06/13/18 21:44 erythromycin base Allergy Severe SVT, Verified 06/13/18 21:44 ARRHYTHMIAS gadobenic acid Allergy Severe PT CODED Verified 06/13/18 21:44 gadodiamide Allergy Severe PT CODED Verified 06/13/18 21:44 gadoteridol Allergy Severe PT CODED Verified 06/13/18 21:44 Iodinated Contrast- Oral and Allergy Severe CARDIAC Verified 06/13/18 21:44 IV Dye ARREST iodine Allergy Severe Anaphylaxis Verified 06/13/18 21:44 iodixanol Allergy Severe PT CODED Verified 06/13/18 21:44 iohexol Allergy Severe PT CODED Verified 06/13/18 21:44 isradipine Allergy Severe "EKG Verified 06/13/18 21:44 CHANGES" lipase Allergy Severe RASH/SHOB Verified 06/13/18 21:44 metoclopramide Allergy Severe TREMORS Verified 06/13/18 21:44 nalbuphine Allergy Severe TREMORS Verified 06/13/18 21:44 nicardipine Allergy Severe "EKG Verified 06/13/18 21:44 CHANGES" nifedipine Allergy Severe "EKG Verified 06/13/18 21:44 CHANGES" nimodipine Allergy Severe Anaphylaxis Verified 06/13/18 21:44 potassium iodide Allergy Severe Anaphylaxis Verified 06/13/18 21:44 povidone-iodine Allergy Severe Anaphylaxis Verified 06/13/18 21:44 prochlorperazine Allergy Severe SHAKES Verified 06/13/18 21:44 promethazine Allergy Severe Anaphylaxis Verified 06/13/18 21:44 protease Allergy Severe RASH/SHOB Verified 06/13/18 21:44 sodium iodide Allergy Severe Anaphylaxis Verified 06/13/18 21:44 sodium iodide Allergy Severe Anaphylaxis Verified 06/13/18 21:44 verapamil Allergy Severe "EKG Verified 06/13/18 21:44 CHANGES" Nkadohv-Pri-Bnm Reductase Allergy Intermediate RHABDO Verified 02/27/18 18:52 Inhibitor NUTRASWEET Allergy Severe Headache Uncoded 06/13/18 21:44 LICORICE Allergy Anaphylaxis Uncoded 06/13/18 21:44 Home Medications Medication Instructions Recorded Confirmed Type gabapentin 300 mg PO QID 06/13/18 10/11/18 History levetiracetam [Keppra] 1,500 mg PO Q12H 06/13/18 10/11/18 History levothyroxine 25 mcg PO DAILY 06/13/18 10/11/18 History metoprolol tartrate 25 mg PO BID 06/13/18 10/11/18 History pantoprazole [Protonix] 40 mg PO DAILY 06/13/18 10/11/18 History phenytoin sodium extended 100 mg PO BID 06/13/18 10/11/18 History [Dilantin] sertraline [Zoloft] 100 mg PO DAILY 06/13/18 10/11/18 History Exam Vital signs: Vital Signs 10/11/18 18:02 10/11/18 19:15 Pulse Rate 75 87 Respiratory Rate 18 16 Blood Pressure 145/66 H 167/69 H Pulse Oximetry 98 96 Intake & Output 10/11/18 10/11/18 10/12/18 06:59 18:59 06:59 Weight 68.039 kg Narrative: A&O x 3 CN II-XII intact except visual calero: inconsistent but right eye vision seems better than left/ right visual field is worse? but in left eye both are worse. patient also endorses mild word finding difficulty and headache, consistent with her migraine aura remainder cranial nerves intact Moves all extremities x 4 including right BKA with full strength Results - Laboratory Findings CBC and BMP: 10/11/18 18:53 10/11/18 18:53 Abnormal lab findings: Abnormal Labs 10/11/18 10/11/18 18:53 18:53 Brantley % (Auto) 8.9 H Chloride 111 H Estimated GFR 58 L Alkaline Phosphatase 141 H Albumin 3.1 L - Diagnostic Findings Additional findings: head CT: tiny punctate right basal ganglia artifact vs. small hemorrhage Assessment and Plan - Plan Recommend overnight admission for observation and repeat CT in AM. From a Neurosurgical point of view, no reason to hold Eliquis. Given complicated migraine history and worsening symptomatology, would like to get MRI brain this evening. Would not hold eliquis given history of prior strokes but defer to Neurology evaluation. Right hip seems very painful and tender, even though no fracture, this could be a reason to stop Eliquis if a hematoma is developing-- defer to Trauma evaluation. She has a history of MRSA superinfection in a knee hematoma after replacement, which led to amputation. Mechanism of fall per Dr. Montesinos triggers trauma evaluation.
[2018-10-11] MEDS ORDERED: Acetaminophen 325 MG Tablet PO PRN (21:37)
[2018-10-11] MEDS ORDERED: Gadobutrol PF 7.5 MMOL/7.5 ML Vial (for RAD) IV.SIG ONE (22:01)
--- NOTE | 2018-10-11 22:04 | MR ---
EXAM DATE: 10/11/2018 10:00 PM EST AGE/SEX: 68 years / Female INDICATIONS: Cephalgia. Headaches with blurry vision and confusion. CLINICAL DATA: This is the patient's initial encounter. Patient reports that signs and symptoms have been present for 1 day and indicates a pain score of 5/10. MEDICAL/SURGICAL HISTORY: Carcinoma, colon. Cardiovascular disease. Chronic obstructive pulmo nary disease. Tonsillectomy. Hysterectomy. Cholecystectomy. Above the knee sx, [place] filter COMPARISON: No prior exams available for comparison. TECHNIQUE: 3D [id number] MRA was performed. Source images, multiplanar STS MIP, and 3D volum e MIP reconstructions were reviewed. FINDINGS: There is excellent visualization of the major intracranial arteries out to the second-order branch ve ssels. There is no evidence for aneurysm, vessel truncation or stenosis, and no evidence for vascula r malformation. CONCLUSION: 1. Negative MRA of the [place] of [place]. Electronically signed by: King Obrien MD 10/11/2018 10:03 PM EST
--- NOTE | 2018-10-11 22:06 | MH ---
cc: Justin Pastor MD DATE OF ADMISSION: 10/11/2018 DATE OF EVALUATION: 10/11/2018 CHIEF COMPLAINT: Fall, routine trauma admission. HISTORY OF PRESENT ILLNESS: The patient is a 68-year-old female with multiple comorbidities and a history of right above-knee amputation, who presented to the emergency department after falling from the toilet to the ground. The patient states that she was using a lift digital assistant type of device to transfer from the toilet to her wheelchair when her watch became entangled in the device causing her to fall to the ground. She states she landed on her right hip and struck her head. She denies loss of consciousness. She really mainly complains of right hip pain, which she rates as very severe. EMS brought the patient to the hospital and the patient was found to be neurologically intact and hemodynamically stable with intact airway breathing and circulation by emergency room physician and underwent further workup in the Veto pod. Workup did show an abnormality on CT of the head concerning for a new punctate bleed. Of note, the patient is reported to be on Xarelto; however, she does not list this in her medications. REVIEW OF SYSTEMS: A 12-point review of systems conducted with the patient and is positive for chronic neck pain, otherwise negative for any pertinent findings related to trauma. PAST MEDICAL HISTORY: 1. Multiple infections with VRE and MRSA in the past. 2. Hypertension. 3. Hypothyroidism. 4. History of CVA. 5. CHF. 6. Coronary artery disease. 7. COPD. 8. History of DVT. 9. History of C. difficile. 10. History of atrial fibrillation. PAST SURGICAL HISTORY: 1. History of colon resection. 2. Cholecystectomy. 3. Appendectomy. 4. Coronary artery stent. 5. Right above-knee amputation. ALLERGIES: REVIEWED. TOO NUMEROUS TO NAME. REVIEWED AND DOCUMENTED IN THE CHART. SOCIAL HISTORY: The patient denies alcohol, tobacco or illicit drug use. Lives at home somewhat independently. FAMILY HISTORY: Reviewed and noncontributory to problem. PHYSICAL EXAMINATION: VITAL SIGNS: Pulse 75, blood pressure 145/66, O2 saturation 99%. GENERAL: The patient is a chronically ill-appearing female in no acute distress. HEENT: Head is normocephalic, atraumatic. Pupils are round, reactive and accommodating to light. Sclerae are anicteric. Oral cavity is clear. Airway is patent. NECK: Supple. No JVD. Tenderness along cervical spine the patient states is chronic. There are no step-offs or deformities. CHEST: Chest wall stable without deformity. Breath sounds present bilaterally. Nonlabored breathing pattern. HEART: Regular rate and rhythm. No murmurs. ABDOMEN: Soft, nondistended. No organomegaly. No ascites. No seatbelt sign. No abdominal pain. BACK: No CVA tenderness. No tenderness of thoracic or lumbar spine. Pelvis is stable. She has tenderness over the right hip with some minor swelling. EXTREMITIES: Status post right AKA. Warm and perfused. No deformities of the extremities. NEUROLOGIC: The patient is alert and oriented x3. GCS 15. Cranial nerves 2-12 are grossly intact. Nonfocal peripheral exam. LABORATORY VALUES: Hemoglobin 12.8. INR is 1.0. IMAGING: A CT scan of the patient's hip is negative for fracture. CT scan of the patient's head shows possible irregular punctate lesion, possible focal hemorrhage, otherwise negative. ASSESSMENT AND PLAN: 1. The patient is a 68-year-old female, status post fall from a toilet with striking her head and complaining of right hip pain. Negative LOC, hemodynamically stable, neurologically intact. Possible head injury. The patient was seen by Dr. Mancera, who recommended observation and admission to trauma service. 2. Right hip pain. No fracture. Will continue supportive care. 3. Multiple medical comorbidities. Will consult medicine for assistance in medical management of the patient. 4. The patient was admitted to observation status. MD GUILLAUME Rodriguez/bon , 09:36 PM , 09:47 PM
--- NOTE | 2018-10-11 22:09 | MR ---
EXAM DATE: 10/11/2018 10:03 PM EST AGE/SEX: 68 years / Female INDICATIONS: Cephalgia. Headaches with blurry vision and confusion. CLINICAL DATA: This is the patient's initial encounter. Patient reports that signs and symptoms have been present for 1 day and indicates a pain score of 5/10. MEDICAL/SURGICAL HISTORY: Hypertension. Carcinoma, colon. Cardiovascular disease. Tonsillecto my. Cholecystectomy. Appendectomy. Bailey filter, Above the knee sx. COMPARISON: [facility], MRI BRAIN W/O CONTRAST, 02/02/2018. [facility], CT HEAD W/O CONTRAST, 10/11/2018. C, CT HEAD W/O CONTRAST, 06/13/2018. [facility], CT BRAIN W/O CONTRAST, 02/27/2018. . TECHNIQUE: Multiplanar, multisequence examination of the brain was performed without and with 7 ml Ga davist (gadobutrol) contrast as a single exam dose. FINDINGS: Cerebrum: The ventricles are normal for age. There is an old infarction with encephalomalacia in the left supracalcarine occipital lobe without evidence of chronic blood products or restricted diffusio n. No evidence of midline shift, mass lesion, hemorrhage or acute infarction. No extraaxial fluid co llections are seen. The pituitary gland and suprasellar cistern are normal in configuration. On the susceptibility weighted images, there are no focal susceptibility artifacts; in particular, no artifa ct in the region of the medial right basal ganglia where CT had demonstrated a punctate hyperdensity. White Matter: No significant signal abnormalities are seen in the white matter. A few small scattere d nonspecific areas of T2 prolongation. Posterior Fossa: The cerebellum and brainstem are intact. The 4th ventricle is midline. The cerebel lopontine angle is unremarkable. The cerebellar tonsils are normal in position. Diffusion Imaging: No focal areas of restricted diffusion are seen. No evidence of acute infarction . Extracranial: The visualized portions of the orbits and paranasal sinuses are unremarkable. Post Contrast: No abnormal areas of parenchymal or dural enhancement. No evidence of blood-brain ba rrier breakdown. CONCLUSION: 1. No evidence of acute hemorrhage or cerebral edema. 2. No evidence of acute infarction. 3. 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 Electronically signed by: King Obrien MD 10/11/2018 10:08 PM EST
[2018-10-12] MEDS: Morphine Sulfate Inj 2 MG/ML Vial IV.PUSH PRN ×5 (03:11→18:12)
[2018-10-12] MEDS: Gabapentin 300 MG Capsule PO SCH ×3 (09:38→16:59)
[2018-10-12] MEDS: Lacosamide 100 MG Tablet PO SCH ×2 (09:38→20:20)
[2018-10-12] MEDS: levETIRAcetam 500 MG Tablet PO SCH ×2 (09:39→20:20)
[2018-10-12] MEDS: Metoprolol Tartrate 25 MG Tablet PO SCH ×2 (09:39→20:19)
[2018-10-12] MEDS: Phenytoin Sodium 100 MG Capsule PO SCH ×2 (09:41→20:20)
--- NOTE | 2018-10-12 10:00 | P.CONNEU ---
History of Present Illness Service: Neurology Primary Care Provider: Umesh Barrett DO Chief Complaint: Fall, migraines History of Present Illness: [age]-year-old female admitted for trauma. Slip and fall fell in her bathroom hit her hip. Had a hematoma in that area takes Eliquis. History of previous stroke. History of intractable migraine headaches for years, and seizures. She goes for office and receives Botox treatments. Is back in her normal state. Lives at home her brother takes care of her as well as caregivers come 40 hours a week. His right lower extremity amputation Review of Systems All other systems reviewed negative except as stated in HPI PMFSH - History History Provided By: Patient - Medical History Medical History: Medical History (Last Reviewed 10/12/18 @ 11:10 by Cali Sanchez) Anemia Asthma C. difficile diarrhea CAD (coronary artery disease) CHF (congestive heart failure) COPD (chronic obstructive pulmonary disease) CVA (cerebral vascular accident) DVT (deep venous thrombosis) ESBL (extended spectrum beta-lactamase) producing bacteria infection Emphysema lung Gastroparesis Neon filter in place Head trauma History of right above knee amputation Hx of skilled nursing use of blood thinners Hypertension Hypothyroid Irregular heart beat MRSA (methicillin resistant Staphylococcus aureus) Pancreatitis Pulmonary embolism SVT (supraventricular tachycardia) Seizure Ulcer VRE (vancomycin-resistant Enterococci) - Surgical History Surgical History: Surgical History (Last Reviewed 10/12/18 @ 11:10 by Cali Sanchez) H/O oral surgery History of appendectomy History of cholecystectomy History of colon resection Hx of tonsillectomy Stented coronary artery - Tobacco History Second Hand Smoke Exposure: Yes (Previously) Tobacco Use In Past 30 Days: No Smoking Status: Never smoker - Alcohol History How Often Do You Have a Drink Containing Alcohol: Never - Substance Use History Substance History: No History of Abuse - Travel History Recent Travel in the [place] Within the Last 8 Weeks: No Recent Travel Out of the Country Within the Last 8 Weeks: No - Immunization History Tetanus Immunization: Unsure Medications and Allergies Active Medications: Active Medications Acetaminophen (Tylenol) 650 mg PO Q6H PRN PRN Reason: TEMPERATURE > 102 F Gabapentin (Neurontin) 300 mg PO TID [facility] Last Admin: 10/12/18 09:38 Dose: 300 mg Lacosamide (Vimpat) 100 mg PO BID [facility] Last Admin: 10/12/18 09:38 Dose: 100 mg Levetiracetam (Keppra) 1,500 mg PO BID [facility] Last Admin: 10/12/18 09:39 Dose: 1,500 mg Levothyroxine Sodium (Synthroid) 25 mcg PO DAILY [facility] Last Admin: 10/12/18 09:39 Dose: 25 mcg Metoprolol Tartrate (Lopressor) 12.5 mg PO BID [facility] Last Admin: 10/12/18 09:39 Dose: 12.5 mg Miscellaneous (Pill Splitter) 1 each OTHER UNSCH PRN PRN Reason: SEE LABEL COMMENT Morphine Sulfate (Morphine Inj) 2 mg IV.PUSH Q3H PRN PRN Reason: PAIN 5-10 Last Admin: 10/12/18 07:37 Dose: 2 mg Oxcarbazepine (Trileptal) 300 mg PO BID [facility] Pantoprazole Sodium (Protonix) 40 mg PO DAILY [facility] Last Admin: 10/12/18 09:39 Dose: 40 mg Phenytoin Sodium (Dilantin) 100 mg PO BID [facility] Last Admin: 10/12/18 09:41 Dose: 100 mg Sertraline HCl (Zoloft) 100 mg PO DAILY [facility] Sodium Chloride (Ns Flush) 2 ml IV.FLUSH UNSCH PRN PRN Reason: FLUSH AFTER USING IV ACCESS Topiramate (Topamax) 50 mg PO BID [facility] Allergies Allergy/AdvReac Type Severity Reaction Status Date / Time adhesive Allergy Severe BLISTER Verified 06/13/18 21:44 amlodipine Allergy Severe "EKG Verified 06/13/18 21:44 CHANGES" amylase Allergy Severe RASH/SHOB Verified 06/13/18 21:44 atorvastatin Allergy Severe "STATIN Verified 06/13/18 21:44 DRUGS"-RHABDOMYLIASIS codeine Allergy Severe RASH Verified 06/13/18 21:44 diatrizoate meglumine Allergy Severe PT CODED Verified 06/13/18 21:44 diltiazem Allergy Severe "EKG Verified 06/13/18 21:44 CHANGES" enalaprilat Allergy Severe Anaphylaxis Verified 06/13/18 21:44 erythromycin base Allergy Severe SVT, Verified 06/13/18 21:44 ARRHYTHMIAS gadobenic acid Allergy Severe PT CODED Verified 06/13/18 21:44 gadodiamide Allergy Severe PT CODED Verified 06/13/18 21:44 gadoteridol Allergy Severe PT CODED Verified 06/13/18 21:44 Iodinated Contrast- Oral and Allergy Severe CARDIAC Verified 06/13/18 21:44 IV Dye ARREST iodine Allergy Severe Anaphylaxis Verified 06/13/18 21:44 iodixanol Allergy Severe PT CODED Verified 06/13/18 21:44 iohexol Allergy Severe PT CODED Verified 06/13/18 21:44 isradipine Allergy Severe "EKG Verified 06/13/18 21:44 CHANGES" lipase Allergy Severe RASH/SHOB Verified 06/13/18 21:44 metoclopramide Allergy Severe TREMORS Verified 06/13/18 21:44 nalbuphine Allergy Severe TREMORS Verified 06/13/18 21:44 nicardipine Allergy Severe "EKG Verified 06/13/18 21:44 CHANGES" nifedipine Allergy Severe "EKG Verified 06/13/18 21:44 CHANGES" nimodipine Allergy Severe Anaphylaxis Verified 06/13/18 21:44 potassium iodide Allergy Severe Anaphylaxis Verified 06/13/18 21:44 povidone-iodine Allergy Severe Anaphylaxis Verified 06/13/18 21:44 prochlorperazine Allergy Severe SHAKES Verified 06/13/18 21:44 promethazine Allergy Severe Anaphylaxis Verified 06/13/18 21:44 protease Allergy Severe RASH/SHOB Verified 06/13/18 21:44 sodium iodide Allergy Severe Anaphylaxis Verified 06/13/18 21:44 sodium iodide Allergy Severe Anaphylaxis Verified 06/13/18 21:44 verapamil Allergy Severe "EKG Verified 06/13/18 21:44 CHANGES" Wnjboip-Zxd-Buq Reductase Allergy Intermediate RHABDO Verified 02/27/18 18:52 Inhibitor NUTRASWEET Allergy Severe Headache Uncoded 06/13/18 21:44 LICORICE Allergy Anaphylaxis Uncoded 06/13/18 21:44 Home Medications Medication Instructions Recorded Confirmed Type gabapentin 300 mg PO TID 06/13/18 10/12/18 History levothyroxine 25 mcg PO DAILY 06/13/18 10/11/18 History metoprolol tartrate 12.5 mg PO BID 06/13/18 10/12/18 History pantoprazole [Protonix] 40 mg PO DAILY 06/13/18 10/11/18 History phenytoin sodium extended 100 mg PO BID 06/13/18 10/11/18 History [Dilantin] sertraline [Zoloft] 100 mg PO DAILY 06/13/18 10/11/18 History apixaban [Eliquis] 2.5 mg PO BID 10/12/18 10/12/18 History ascorbic acid (vitamin C) [Vitamin 1,000 mg PO Q12H 10/12/18 10/12/18 History C] diclofenac sodium [Voltaren] PRN 10/12/18 10/12/18 History diphenoxylate-atropine 2 tab PO Q6-8H PRN 10/12/18 10/12/18 History erenumab-aooe [Aimovig 140 mg SUBCUT QMONTH 10/12/18 10/12/18 History Autoinjector] lacosamide [Vimpat] 100 mg PO BID 10/12/18 10/12/18 History levetiracetam 1,500 mg PO BID 10/12/18 10/12/18 History meclizine 25 mg PO DAILY PRN 10/12/18 10/12/18 History omeprazole 20 mg PO BID 10/12/18 10/12/18 History onabotulinumtoxinA [Botox] [id number] 10/12/18 History oxcarbazepine 300 mg PO BID 10/12/18 10/12/18 History topiramate 50 mg PO BID 10/12/18 10/12/18 History vit D3-folic [id number] 10/12/18 History vit [id number] 10/12/18 History Exam Vital signs: Vital Signs 10/11/18 18:02 10/11/18 19:15 10/11/18 21:15 Temperature Pulse Rate 75 87 Respiratory Rate 18 16 15 Blood Pressure 145/66 H 167/69 H Pulse Oximetry 98 96 10/12/18 00:00 10/12/18 03:43 10/12/18 04:00 Temperature 97.7 F 98.0 F Pulse Rate 73 80 Respiratory Rate 16 16 16 Blood Pressure 179/86 H 174/84 H Pulse Oximetry 98 98 10/12/18 07:36 Temperature 98.4 F Pulse Rate 86 Respiratory Rate 16 Blood Pressure 181/84 H Pulse Oximetry 97 Intake & Output 10/11/18 10/12/18 10/12/18 18:59 06:59 18:59 Intake Total 1000 / 1000 Balance 1000 / 1000 Weight 68.039 kg 68.039 kg Intake: IV 1000 / 1000 NS Inj 1,000 ML @ Wide Open IV. 1000 / 1000 SIG BOLUS ONE Rx#:[id number] Other: Date of Last Bowel Movement 10/11/18 10/11/18 Weight On Admission 68.039 kg Narrative: GENERAL: in NAD, SKIN: Warm and dry. HEAD: Atraumatic. Normocephalic. EYES: Pupils equal and round. No scleral icterus. ENT: No nasal bleeding or discharge. NECK: Trachea midline. No JVD. CARDIOVASCULAR: Regular rate and rhythm. RESPIRATORY: No accessory muscle use. GASTROINTESTINAL: Abdomen soft, non-tender, nondistended. NEUROLOGICAL: Awake alert oriented x3, extraocular was intact no facial asymmetry tongue midline neck supple strength 5 out of 5 upper extremities left lower extremity mild hip flexion weakness but able raise it to gravity right lower extremity amputation PSYCHIATRIC: Appropriate mood and affect; insight and judgment normal. - Constitutional no acute distress - Routine HEENT Exam Head: Present: normocephalic Eye: Present: EOMI Results - Labs CBC & Chem 7: 10/11/18 18:53 10/11/18 18:53 Labs: Laboratory Results - last 24 hr 10/11/18 10/11/18 10/11/18 18:53 18:53 18:53 WBC 6.2 RBC 4.50 Hgb 12.8 Hct 38.9 MCV 86.6 MCH 28.4 MCHC 32.8 RDW 14.6 Plt Count 309 MPV 7.6 Neut % (Auto) 62.5 Lymph % (Auto) 26.0 [place] % (Auto) 8.9 H Eos % (Auto) 2.1 Baso % (Auto) 0.5 Neut # (Auto) 3.8 Lymph # (Auto) 1.6 [place] # (Auto) 0.5 Eos # (Auto) 0.1 Baso # (Auto) 0.0 WBC Differential . Differential Comment Auto diff final PT 10.4 INR 1.0 APTT 25.2 Sodium 143 Potassium 4.1 Chloride 111 H Carbon Dioxide 25.6 Anion Gap 6 BUN 9 Creatinine 0.96 Estimated GFR 58 L Random Glucose 97 Calcium 8.6 Total Bilirubin 0.2 AST 28 ALT 17 Alkaline Phosphatase 141 H Total Protein 7.2 Albumin 3.1 L - Imaging Impressions Head CT 10/11/18 18:21 CONCLUSION: 1. Solitary new punctate hyperdensity in the right basal ganglia may represent focal hemorrhage. Recommend follow-up scans. 2. Otherwise, stable CT brain. . Hip CT 10/11/18 18:51 CONCLUSION: 1. Luecn-tbh-odsh amputation right lower extremity. 2. No evidence of acute fracture. Head MRI 10/11/18 20:28 CONCLUSION: 1. No evidence of acute hemorrhage or cerebral edema. 2. No evidence of acute infarction. 3. 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 Head MRA 10/11/18 20:28 CONCLUSION: 1. Negative MRA of the [place]. Review/Management - Diagnosis (1) Migraines Code(s): G43.909 - Migraine, unspecified, not intractable, without status migrainosus Status: Acute Current Visit: Yes (2) Chronic pain disorder Code(s): G89.4 - Chronic pain syndrome Status: Acute Current Visit: Yes (3) Seizures Code(s): R56.9 - Unspecified convulsions Status: Acute Current Visit: Yes (4) Anxiety Code(s): F41.9 - Anxiety disorder, unspecified Status: Acute Current Visit: Yes (5) Depression Code(s): F32.9 - Major depressive disorder, single episode, unspecified Status : Acute Current Visit: Yes (6) Chronic arterial ischemic stroke Code(s): I69.30 - Unspecified sequelae of cerebral infarction Status: Acute Current Visit: Yes - Review/Management Plan: mri negative for acute stroke or ICH old stroke intractable migraines and pain syndrome recs Oral anticoagulation to be continued can be dc'd and f/u outpatient has a tendency for narcotics; would avoid them outpatient botox at out office (1) Migraines Qualifiers: Migraine type: with aura
[2018-10-12] MEDS: Sertraline 100 MG Tablet PO SCH (11:15)
[2018-10-12] MEDS: Topiramate 25 MG Tablet PO SCH ×2 (11:15→20:19)
[2018-10-12] MEDS: OXcarbazepine 300 MG Tablet PO SCH ×2 (11:15→20:20)
--- NOTE | 2018-10-12 11:17 | P.CONFP ---
History of Present Illness Service: Family Medicine Consult date: 10/12/18 Requesting Physician: Justin Pastor Reason for Consult: Eval and treat Primary Care Provider: Umesh Barrett DO Chief Complaint: Fall, migraines History of Present Illness: Patient reportedly fell in the bathroom and sustained a blow to the head and right hip. Review of Systems Constitutional: Reports body ache(s), Reports headache(s) Eyes: Reports change in vision, Denies blind spots Ears, Nose, Mouth, and Throat: Denies abnormal hearing Cardiovascular: Denies chest pain, Denies irregular heart rhythm, Denies leg sores Respiratory: Denies chest congestion, Denies cough, Denies shortness of breath Gastrointestinal: Denies abdominal pain, Denies change in bowel habits Genitourinary: Denies blood in urine, Denies urinary incontinence, Denies urinary urgency Musculoskeletal: Reports abnormal walking, Reports joint pain, Reports muscle weakness, Reports stiffness Skin/Breast: Denies sores Neurologic: Denies abnormal hearing, Denies abnormal movements, Denies abnormal speech Psychiatric: Denies abnormal sleep pattern, Denies anxiety, Denies behavioral changes Endocrine: Denies cold intolerance, Denies excessive sweating Hematologic/Lymphatic: Denies easy bleeding, Denies easy bruising Allergic/Immunologic: Denies GI upset with certain foods, Denies throat swelling PMFSH - History History Provided By: Patient - Medical History Medical History: Medical History (Last Reviewed 10/12/18 @ 11:10 by Cali Sanchez) Anemia Asthma C. 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 Hypertension Hypothyroid Irregular heart beat MRSA (methicillin resistant Staphylococcus aureus) Pancreatitis Pulmonary embolism SVT (supraventricular tachycardia) Seizure Ulcer VRE (vancomycin-resistant Enterococci) - Surgical History Surgical History: Surgical History (Last Reviewed 10/12/18 @ 11:10 by Cali Sanchez) H/O oral surgery History of appendectomy History of cholecystectomy History of colon resection Hx of tonsillectomy Stented coronary artery - Social History I have reviewed the patient's Social History: Yes - Tobacco History Second Hand Smoke Exposure: Yes (Previously) Tobacco Use In Past 30 Days: No Smoking Status: Never smoker - Alcohol History How Often Do You Have a Drink Containing Alcohol: Never - Substance Use History Substance History: No History of Abuse - Travel History History of Recent Travel: No Recent Travel in the [place] Within the Last 8 Weeks: No Recent Travel Out of the Country Within the Last 8 Weeks: No - Immunization History Tetanus Immunization: Unsure Medications and Allergies Active Medications: Active Medications Acetaminophen (Tylenol) 650 mg PO Q6H PRN PRN Reason: TEMPERATURE > 102 F Gabapentin (Neurontin) 300 mg PO TID [facility] Last Admin: 10/12/18 09:38 Dose: 300 mg Lacosamide (Vimpat) 100 mg PO BID [facility] Last Admin: 10/12/18 09:38 Dose: 100 mg Levetiracetam (Keppra) 1,500 mg PO BID [facility] Last Admin: 10/12/18 09:39 Dose: 1,500 mg Levothyroxine Sodium (Synthroid) 25 mcg PO DAILY [facility] Last Admin: 10/12/18 09:39 Dose: 25 mcg Metoprolol Tartrate (Lopressor) 12.5 mg PO BID [facility] Last Admin: 10/12/18 09:39 Dose: 12.5 mg Miscellaneous (Pill Splitter) 1 each OTHER UNSCH PRN PRN Reason: SEE LABEL COMMENT Morphine Sulfate (Morphine Inj) 2 mg IV.PUSH Q3H PRN PRN Reason: PAIN 5-10 Last Admin: 10/12/18 07:37 Dose: 2 mg Oxcarbazepine (Trileptal) 300 mg PO BID [facility] Pantoprazole Sodium (Protonix) 40 mg PO DAILY [facility] Last Admin: 10/12/18 09:39 Dose: 40 mg Phenytoin Sodium (Dilantin) 100 mg PO BID [facility] Last Admin: 10/12/18 09:41 Dose: 100 mg Sertraline HCl (Zoloft) 100 mg PO DAILY [facility] Sodium Chloride (Ns Flush) 2 ml IV.FLUSH UNSCH PRN PRN Reason: FLUSH AFTER USING IV ACCESS Topiramate (Topamax) 50 mg PO BID [facility] Allergies Allergy/AdvReac Type Severity Reaction Status Date / Time adhesive Allergy Severe BLISTER Verified 06/13/18 21:44 amlodipine Allergy Severe "EKG Verified 06/13/18 21:44 CHANGES" amylase Allergy Severe RASH/SHOB Verified 06/13/18 21:44 atorvastatin Allergy Severe "STATIN Verified 06/13/18 21:44 DRUGS"-RHABDOMYLIASIS codeine Allergy Severe RASH Verified 06/13/18 21:44 diatrizoate meglumine Allergy Severe PT CODED Verified 06/13/18 21:44 diltiazem Allergy Severe "EKG Verified 06/13/18 21:44 CHANGES" enalaprilat Allergy Severe Anaphylaxis Verified 06/13/18 21:44 erythromycin base Allergy Severe SVT, Verified 06/13/18 21:44 ARRHYTHMIAS gadobenic acid Allergy Severe PT CODED Verified 06/13/18 21:44 gadodiamide Allergy Severe PT CODED Verified 06/13/18 21:44 gadoteridol Allergy Severe PT CODED Verified 06/13/18 21:44 Iodinated Contrast- Oral and Allergy Severe CARDIAC Verified 06/13/18 21:44 IV Dye ARREST iodine Allergy Severe Anaphylaxis Verified 06/13/18 21:44 iodixanol Allergy Severe PT CODED Verified 06/13/18 21:44 iohexol Allergy Severe PT CODED Verified 06/13/18 21:44 isradipine Allergy Severe "EKG Verified 06/13/18 21:44 CHANGES" lipase Allergy Severe RASH/SHOB Verified 06/13/18 21:44 metoclopramide Allergy Severe TREMORS Verified 06/13/18 21:44 nalbuphine Allergy Severe TREMORS Verified 06/13/18 21:44 nicardipine Allergy Severe "EKG Verified 06/13/18 21:44 CHANGES" nifedipine Allergy Severe "EKG Verified 06/13/18 21:44 CHANGES" nimodipine Allergy Severe Anaphylaxis Verified 06/13/18 21:44 potassium iodide Allergy Severe Anaphylaxis Verified 06/13/18 21:44 povidone-iodine Allergy Severe Anaphylaxis Verified 06/13/18 21:44 prochlorperazine Allergy Severe SHAKES Verified 06/13/18 21:44 promethazine Allergy Severe Anaphylaxis Verified 06/13/18 21:44 protease Allergy Severe RASH/SHOB Verified 06/13/18 21:44 sodium iodide Allergy Severe Anaphylaxis Verified 06/13/18 21:44 sodium iodide Allergy Severe Anaphylaxis Verified 06/13/18 21:44 verapamil Allergy Severe "EKG Verified 06/13/18 21:44 CHANGES" [id number]-Nzc-Dnt Reductase Allergy Intermediate RHABDO Verified 02/27/18 18:52 Inhibitor NUTRASWEET Allergy Severe Headache Uncoded 06/13/18 21:44 LICORICE Allergy Anaphylaxis Uncoded 06/13/18 21:44 Home Medications Medication Instructions Recorded Confirmed Type gabapentin 300 mg PO TID 06/13/18 10/12/18 History levothyroxine 25 mcg PO DAILY 06/13/18 10/11/18 History metoprolol tartrate 12.5 mg PO BID 06/13/18 10/12/18 History pantoprazole [Protonix] 40 mg PO DAILY 06/13/18 10/11/18 History phenytoin sodium extended 100 mg PO BID 06/13/18 10/11/18 History [Dilantin] sertraline [Zoloft] 100 mg PO DAILY 06/13/18 10/11/18 History apixaban [Eliquis] 2.5 mg PO BID 10/12/18 10/12/18 History ascorbic acid (vitamin C) [Vitamin 1,000 mg PO Q12H 10/12/18 10/12/18 History C] diclofenac sodium [Voltaren] PRN 10/12/18 10/12/18 History diphenoxylate-atropine 2 tab PO Q6-8H PRN 10/12/18 10/12/18 History erenumab-aooe [Aimovig 140 mg SUBCUT QMONTH 10/12/18 10/12/18 History Autoinjector] lacosamide [Vimpat] 100 mg PO BID 10/12/18 10/12/18 History levetiracetam 1,500 mg PO BID 10/12/18 10/12/18 History meclizine 25 mg PO DAILY PRN 10/12/18 10/12/18 History omeprazole 20 mg PO BID 10/12/18 10/12/18 History onabotulinumtoxinA [Botox] [id number] 10/12/18 History oxcarbazepine 300 mg PO BID 10/12/18 10/12/18 History topiramate 50 mg PO BID 10/12/18 10/12/18 History vit D3-folic [id number] 10/12/18 History vit [id number] 10/12/18 History Exam Vital signs: Vital Signs 10/11/18 18:02 10/11/18 19:15 11/16/18 21:15 Temperature Pulse Rate 75 87 Respiratory Rate 18 16 15 Blood Pressure 145/66 H 167/69 H Pulse Oximetry 98 96 10/12/18 00:00 10/12/18 03:43 10/12/18 04:00 Temperature 97.7 F 98.0 F Pulse Rate 73 80 Respiratory Rate 16 16 16 Blood Pressure 179/86 H 174/84 H Pulse Oximetry 98 98 10/12/18 07:36 Temperature 98.4 F Pulse Rate 86 Respiratory Rate 16 Blood Pressure 181/84 H Pulse Oximetry 97 Intake & Output 10/11/18 10/12/18 10/12/18 18:59 06:59 18:59 Intake Total 1000 / 1000 Balance 1000 / 1000 Weight 68.039 kg 68.039 kg Intake: IV 1000 / 1000 NS Inj 1,000 ML @ Wide Open IV. 1000 / 1000 SIG BOLUS ONE Rx#:[id number] Other: Date of Last Bowel Movement 10/11/18 10/11/18 Weight On Admission 68.039 kg - Constitutional mild distress, obese, cooperative - Routine HEENT Exam Head: Present: normocephalic Eye: Present: PERRL ENT: Present: mucous membranes moist - Routine Neck Exam Present: supple, full ROM - Routine Respiratory Exam Present: CTA bilaterally - Routine Cardiovascular Exam Present: RRR, S1, S2 - Routine Abdominal Exam Present: soft, normoactive bowel sounds. Absent: tenderness - Routine Extremities Exam Comments: Right BKA and right hip pain with LROM due to pain. - Routine Skin Exam Present: intact - Routine Neurological Exam Present: alert Results - Labs Result diagrams: 10/11/18 18:53 10/11/18 18:53 Abnormal lab results 10/11/18 10/11/18 Range/Units 18:53 18:53 [place] % (Auto) 8.9 H (0.0-8.0) % Chloride 111 H (98-107) meq/L Estimated GFR 58 L (>89) mL/min Alkaline Phosphatase 141 H (45-117) U/L Albumin 3.1 L (3.4-5.0) g/dL Short CBC 10/11/18 Range/Units 18:53 WBC 6.2 (4.0-11.0) th/mm3 Hgb 12.8 (11.6-15.3) gm/dL Hct 38.9 (35.0-46.0) % Plt Count 309 (150-450) th/mm3 BMP 10/11/18 18:53 Sodium 143 Potassium 4.1 Chloride 111 H Carbon Dioxide 25.6 BUN 9 Creatinine 0.96 Calcium 8.6 Liver Function 10/11/18 Range/Units 18:53 Total Bilirubin 0.2 (0.2-1.0) mg/dL AST 28 (15-37) U/L ALT 17 (10-53) U/L Alkaline Phosphatase 141 H (45-117) U/L Albumin 3.1 L (3.4-5.0) g/dL - Imaging Impressions Head CT 10/11/18 18:21 CONCLUSION: 1. Solitary new punctate hyperdensity in the right basal ganglia may represent focal hemorrhage. Recommend follow-up scans. 2. Otherwise, stable CT brain. . Hip CT 10/11/18 18:51 CONCLUSION: 1. Wxkio-hqo-xvpf amputation right lower extremity. 2. No evidence of acute fracture. Head MRI 10/11/18 20:28 CONCLUSION: 1. No evidence of acute hemorrhage or cerebral edema. 2. No evidence of acute infarction. 3. 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 Head MRA 10/11/18 20:28 CONCLUSION: 1. Negative MRA of the [place] [facility] [place]. Assessment and Plan - Assessment (1) Hip pain, right Code(s): M25.551 - Pain in right hip Status: Acute Plan: Xrays are negative for dislocation and fracture. Cont pain meds as needed. (2) Migraines Code(s): G43.909 - Migraine, unspecified, not intractable, without status migrainosus Status: Acute Qualifiers: Migraine type: with aura Plan: F/U Neuro consult and treatment. - Assessment and Plan Will monitor closely and F/U Neuro and trauma consultants recommendations. Discussed Condition With: Patient and brother Discharge Planning: Home when cleared by Trauma service. Neuro has cleared for D/C per consult note earlier today.
[2018-10-12] MEDS ORDERED: Sodium Chloride 0.9% 2 ML Flush PRN IV.FLUSH (12:06)
--- NOTE | 2018-10-12 16:47 | P.PN ---
Subjective Interval history: TRAUMA PTD: 1 Patient sitting up in bed. Tearful, and very painful. Patient states, "I am in so much pain. What am I going to do?" Physical Exam Vital signs: Vital Signs 10/11/18 18:02 10/11/18 19:15 10/11/18 21:15 Temperature Pulse Rate 75 87 Respiratory Rate 18 16 15 Blood Pressure 145/66 H 167/69 H Pulse Oximetry 98 96 10/12/18 00:00 10/12/18 03:43 10/12/18 04:00 Temperature 97.7 F 98.0 F Pulse Rate 73 80 Respiratory Rate 16 16 16 Blood Pressure 179/86 H 174/84 H Pulse Oximetry 98 98 10/12/18 07:36 10/12/18 12:00 10/12/18 16:00 Temperature 98.4 F 98.7 F 98.3 F Pulse Rate 86 73 66 Respiratory Rate 16 16 16 Blood Pressure 181/84 H 157/77 H 122/59 L Pulse Oximetry 97 96 96 Intake & Output 10/11/18 10/12/18 10/12/18 18:59 06:59 18:59 Intake Total 1000 / 1000 Balance 1000 / 1000 Weight 68.039 kg 68.039 kg Intake: IV 1000 / 1000 NS Inj 1,000 ML @ Wide Open IV. 1000 / 1000 SIG BOLUS ONE Rx#:[id number] Other: Date of Last Bowel Movement 10/11/18 10/11/18 Weight On Admission 68.039 kg Narrative: GENERAL: This is a 68-year-old female who looks much older than stated age. Tearful. SKIN: Warm and dry. HEAD: Atraumatic. Normocephalic. EYES: PERRLA ENT: No nasal bleeding or discharge. Mucous membranes pink and moist. NECK: Trachea midline. No JVD. CARDIOVASCULAR: Regular rate and rhythm. RESPIRATORY: No accessory muscle use. Lungs are clear to auscultation. Breath sounds equal bilaterally. No distress or dyspnea. GASTROINTESTINAL: BS + x 4 quads. Abdomen soft, non-tender, nondistended. MUSCULOSKELETAL: Extremities without cyanosis, or edema. Large hematoma noted to right outer thigh/hip. Right AKA noted. + peripheral pulses x 4 extremities. Warm with good capillary refill and sensation. MAEW. NEUROLOGICAL: Awake and alert. Normal speech and pattern. Results - Labs CBC & Chem 7: 10/11/18 18:53 10/11/18 18:53 Laboratory Results - last 24 hr 10/11/18 10/11/18 10/11/18 18:53 18:53 18:53 WBC 6.2 RBC 4.50 Hgb 12.8 Hct 38.9 MCV 86.6 MCH 28.4 MCHC 32.8 RDW 14.6 Plt Count 309 MPV 7.6 Neut % (Auto) 62.5 Lymph % (Auto) 26.0 [place] % (Auto) 8.9 H Eos % (Auto) 2.1 Baso % (Auto) 0.5 Neut # (Auto) 3.8 Lymph # (Auto) 1.6 [place] # (Auto) 0.5 Eos # (Auto) 0.1 Baso # (Auto) 0.0 WBC Differential . Differential Comment Auto diff final PT 10.4 INR 1.0 APTT 25.2 Sodium 143 Potassium 4.1 Chloride 111 H Carbon Dioxide 25.6 Anion Gap 6 BUN 9 Creatinine 0.96 Estimated GFR 58 L Random Glucose 97 Calcium 8.6 Total Bilirubin 0.2 AST 28 ALT 17 Alkaline Phosphatase 141 H Total Protein 7.2 Albumin 3.1 L Nasal Screen MRSA (PCR) 10/12/18 09:30 WBC RBC Hgb Hct MCV MCH MCHC RDW Plt Count MPV Neut % (Auto) Lymph % (Auto) [place] % (Auto) Eos % (Auto) Baso % (Auto) Neut # (Auto) Lymph # (Auto) [place] # (Auto) Eos # (Auto) Baso # (Auto) WBC Differential Differential Comment PT INR APTT Sodium Potassium Chloride Carbon Dioxide Anion Gap BUN Creatinine Estimated GFR Random Glucose Calcium Total Bilirubin AST ALT Alkaline Phosphatase Total Protein Albumin Nasal Screen MRSA (PCR) Not detected - Imaging Impressions Head CT 10/11/18 18:21 CONCLUSION: 1. Solitary new punctate hyperdensity in the right basal ganglia may represent focal hemorrhage. Recommend follow-up scans. 2. Otherwise, stable CT brain. . Hip CT 10/11/18 18:51 CONCLUSION: 1. Yfsgr-vps-ozhq amputation right lower extremity. 2. No evidence of acute fracture. Head MRI 10/11/18 20:28 CONCLUSION: 1. No evidence of acute hemorrhage or cerebral edema. 2. No evidence of acute infarction. 3. 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 Head MRA 10/11/18 20:28 CONCLUSION: 1. Negative MRA of the [place] [facility]. Assessment and Plan - Assessment (1) Hip pain, right Code(s): M25.551 - Pain in right hip Status: Acute - Plan [place]: This is a 68-year-old female who sustained a mechanical fall. She fell while transferring herself from the toilet. She fell onto her right side. INJURIES: RIGHT basial ganglia hyperdensity PMHx; Anemia. Asthma. Migraines. CDiff. CAD. Afib/SVT. CHF. COPD. PE & DVT (has filter). 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 Gastroparesis. R AKA. HTN. Hypothyroid. MRSA. Pancreatitis. Seizures. Ilcers. Procedures: Consults: Neurosurgery. Neurology. Hospitalist. Case management. Diet: Regular diet. Tolerating po diet. Encourage good po intake with each meal. Pulmonary: Encourage good pulmonary toileting. IS at bedside and pt encouraged to use. Rationale for use explained to patient, and verbalized understanding. PAIN Management: Tylenol or Bledsoe 5 mg q 4h. Morphine 2 mg q 3h for breakthrough pain. Activity: OOB. PT ordered. GI prophylaxis: Protonix 40 mg p.o. Bowel regimen: TBD. LBM: 0 DVT prophylaxis: Mechanical VTE with SCDs. Chemical management TBD. DC Planning: Case management consulted for assistance with final discharge disposition. Pain patient will remain overnight for pain control. Plan on discharge tomorrow. Emotional support provided to patient at bedside and plan of care discussed. Discussed with RN at bedside. Discussed pt condition and plan of care with collaborating trauma surgeon. Patient is hemodynamically stable and being managed on the med/surg floor. The trauma team will round each day, and evaluate plan of care on a daily basis. RIGHT basial ganglia hyperdensity Migraines Neurosurgery consulted and assisting in management and care Neurology consulted and assisting in management and care Supportive care MRI brain - no acute hemorrhage. MRA brain - NEG CT brain for any change in neurological status Pain management Encourage out of bed PT ordered Resumed home medications -Topamax Neurology has cleared the patient for discharge Neurosurgery is cleared the patient for discharge Right hip pain Supportive care Pain management Right hip negative for fracture Encourage out of bed PT ordered Bowel regimen Anemia. Asthma. Migraines. CDiff. CAD. Afib/SVT. CHF. COPD. PE & DVT (has filter). 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 Gastroapresis. R AKA. HTN. Hypothyroid. MRSA. Pancreatitis. Seizures. Ulcers. Hospitalist consulted for assistance in medical management Home medications resumed Vital signs every 4 hours and as needed
[2018-10-12] MEDS: Sodium Chloride 0.9% 2 ML Flush BID IV.FLUSH SCH (20:21)
--- NOTE | 2018-10-13 07:08 | P.DCO ---
- Physical Therapy Order: Evaluate and treat, Improve ambulation, Strength and gait training - Home Health Nursing Order: Medical education, Signs/symptoms of disease process, Medication education-adverse effect, Nursing assessment with vital signs - Case Management Consult Case Management Consult-Home Health: Yes - Certification I have seen patient Melisa Hernandez on 10/13/18. My clinical findings support the need for the requested home health care services because: Limited mobility due to disease progression, Deconditioned with increased weakness, Limited ability to care for self, High risk of falls I certify that my clinical findings support that this patient is homebound because: Unsteady gait/balance, Unsafe to leave home unassisted, Non-ambulatory: confined to bed or chair, Unable to use public transportation
[2018-10-13] MEDS: levETIRAcetam 500 MG Tablet PO SCH (10:17)
[2018-10-13] MEDS: Sertraline 100 MG Tablet PO SCH (10:18)
[2018-10-13] MEDS: Gabapentin 300 MG Capsule PO SCH (10:18)
[2018-10-13] MEDS: Metoprolol Tartrate 25 MG Tablet PO SCH (10:18)
[2018-10-13] MEDS: Topiramate 25 MG Tablet PO SCH (10:18)
[2018-10-13] MEDS: OXcarbazepine 300 MG Tablet PO SCH (10:18)
[2018-10-13] MEDS: Phenytoin Sodium 100 MG Capsule PO SCH (10:18)
[2018-10-13] MEDS: Lacosamide 100 MG Tablet PO SCH (10:19)
[2018-10-13] MEDS: Sodium Chloride 0.9% 2 ML Flush BID IV.FLUSH SCH (10:19)
--- NOTE | 2018-10-13 11:00 | P.PNFP ---
Subjective Interval history: She is awake and cont to C/O hip pain but tells me her KILPATRICK has resolved. HTN and glucose are both controlled. Results - Labs Result diagrams: 10/11/18 18:53 10/11/18 18:53 Physical Exam Vital signs: Vital Signs 10/12/18 12:00 10/12/18 16:00 10/12/18 20:00 Temperature 98.7 F 98.3 F 98.0 F Pulse Rate 73 66 74 Respiratory Rate 16 16 16 Blood Pressure 157/77 H 122/59 L 121/62 Pulse Oximetry 96 96 94 L 10/13/18 00:00 10/13/18 03:50 10/13/18 08:00 Temperature 97.9 F 98.2 F 98.5 F Pulse Rate 68 63 69 Respiratory Rate 16 17 16 Blood Pressure 124/68 138/69 135/66 Pulse Oximetry 95 95 93 L Intake & Output 10/12/18 10/13/18 10/13/18 18:59 06:59 18:59 Intake Total 1200 / 1200 Balance 1200 / 1200 Intake: Oral 1200 / 1200 Other: # Voids 3 # Incontinent Voids 1 Date of Last Bowel Movement 10/11/18 10/11/18 - Constitutional mild distress - Routine HEENT Exam Head: Present: normocephalic Eye: Present: PERRL, normal accommodation ENT: Present: mucous membranes moist - Routine Neck Exam Present: supple, full ROM - Routine Respiratory Exam Present: CTA bilaterally - Routine Cardiovascular Exam Present: RRR, S1, S2 - Routine Abdominal Exam Present: soft, normoactive bowel sounds - Routine Extremities Exam Absent: cyanosis Comments: right hip pain with LROM due to pain. Right BKA. - Routine Skin Exam Present: intact - Routine Neurological Exam Present: alert, oriented X3 - Detailed Neurological Exam: Coma Scale Eye Opening: Spontaneous Verbal Response: Oriented Motor Response: Obey commands [place] Coma Scale Total: 15 - Routine Psychiatric Exam Present: normal affect, normal thought process Assessment and Plan - Assessment (1) Hip pain, right Code(s): M25.551 - Pain in right hip Status: Acute Plan: Xrays are negative for dislocation and fracture. Cont pain meds as needed. She tells me she is for D/C home today and will F/U in our office next week and see Neuro in 2 weeks. (2) Migraines Code(s): G43.909 - Migraine, unspecified, not intractable, without status migrainosus Status: Resolved Plan: F/U Neuro consult and treatment. Migraine KILPATRICK has resolved. - Assessment and Plan 10/12/18 - Will monitor closely and F/U Neuro and trauma consultants recommendations. 10/13/18 - Trauma service has cleared for D/C home. The nurse tells me there is some confusion about who is the attending as she was adm by the trauma service and not Dr. Barrett. I expressed to her that I would be more than happy to D/C the patient if they prefer and she will let me know what they decide. I agree she is medically cleared for D/C home today with [facility]. We will F/U in our office next week and she has an appt with Neuro in 2 weeks. Discharge Planning: Home with [facility]. Neuro and trauma service has cleared for D/C home today. (2) Migraines Qualifiers: Migraine type: with aura
--- NOTE | 2018-10-13 12:04 | P.PNNEU ---
Subjective Subjective Comments: No cp, no dyspnea, no reyes, no focal weakness, no vision loss Active Medications: Active Medications Acetaminophen (Tylenol) 650 mg PO Q6H PRN PRN Reason: TEMPERATURE > 102 F Hydrocodone Bitart/Acetaminophen ([place] 5/325) 1 tab PO Q4H PRN PRN Reason: Acute Pain Last Admin: 10/13/18 10:17 Dose: 1 tab Gabapentin (Neurontin) 300 mg PO TID [facility] Last Admin: 10/13/18 10:18 Dose: 300 mg Lacosamide (Vimpat) 100 mg PO BID [facility] Last Admin: 10/13/18 10:19 Dose: 100 mg Levetiracetam (Keppra) 1,500 mg PO BID [facility] Last Admin: 10/13/18 10:17 Dose: 1,500 mg Levothyroxine Sodium (Synthroid) 25 mcg PO DAILY [facility] Last Admin: 10/13/18 10:18 Dose: 25 mcg Metoprolol Tartrate (Lopressor) 12.5 mg PO BID [facility] Last Admin: 10/13/18 10:18 Dose: 12.5 mg Miscellaneous (Pill Splitter) 1 each OTHER UNSCH PRN PRN Reason: SEE LABEL COMMENT Morphine Sulfate (Morphine Inj) 2 mg IV.PUSH Q3H PRN PRN Reason: BREAKTHROUGH PAIN Last Admin: 10/12/18 18:12 Dose: 2 mg Ondansetron HCl (Zofran Inj) 4 mg IV.PUSH Q6H PRN PRN Reason: NAUSEA Last Admin: 10/12/18 12:49 Dose: 4 mg Oxcarbazepine (Trileptal) 300 mg PO BID [facility] Last Admin: 10/13/18 10:18 Dose: 300 mg Pantoprazole Sodium (Protonix) 40 mg PO DAILY [facility] Last Admin: 10/13/18 10:19 Dose: 40 mg Phenytoin Sodium (Dilantin) 100 mg PO BID [facility] Last Admin: 10/13/18 10:18 Dose: 100 mg Sertraline HCl (Zoloft) 100 mg PO DAILY [facility] Last Admin: 10/13/18 10:18 Dose: 100 mg Sodium Chloride (Ns Flush) 2 ml IV.FLUSH BID [facility] Last Admin: 10/13/18 10:19 Dose: 2 ml Sodium Chloride (Ns Flush) 2 ml IV.FLUSH PRN PRN PRN Reason: FLUSH AFTER USING IV ACCESS Topiramate (Topamax) 50 mg PO BID [facility] Last Admin: 10/13/18 10:18 Dose: 50 mg Allergies/Adverse Reactions: Allergies Allergy/AdvReac Type Severity Reaction Status Date / Time adhesive Allergy Severe BLISTER Verified 06/13/18 21:44 amlodipine Allergy Severe "EKG Verified 06/13/18 21:44 CHANGES" amylase Allergy Severe RASH/SHOB Verified 06/13/18 21:44 atorvastatin Allergy Severe "STATIN Verified 06/13/18 21:44 DRUGS"-RHABDOMYLIASIS codeine Allergy Severe RASH Verified 06/13/18 21:44 diatrizoate meglumine Allergy Severe PT CODED Verified 06/13/18 21:44 diltiazem Allergy Severe "EKG Verified 06/13/18 21:44 CHANGES" enalaprilat Allergy Severe Anaphylaxis Verified 06/13/18 21:44 erythromycin base Allergy Severe SVT, Verified 06/13/18 21:44 ARRHYTHMIAS gadobenic acid Allergy Severe PT CODED Verified 06/13/18 21:44 gadodiamide Allergy Severe PT CODED Verified 06/13/18 21:44 gadoteridol Allergy Severe PT CODED Verified 06/13/18 21:44 Iodinated Contrast- Oral and Allergy Severe CARDIAC Verified 06/13/18 21:44 IV Dye ARREST iodine Allergy Severe Anaphylaxis Verified 06/13/18 21:44 iodixanol Allergy Severe PT CODED Verified 06/13/18 21:44 iohexol Allergy Severe PT CODED Verified 06/13/18 21:44 isradipine Allergy Severe "EKG Verified 06/13/18 21:44 CHANGES" lipase Allergy Severe RASH/SHOB Verified 06/13/18 21:44 metoclopramide Allergy Severe TREMORS Verified 06/13/18 21:44 nalbuphine Allergy Severe TREMORS Verified 06/13/18 21:44 nicardipine Allergy Severe "EKG Verified 06/13/18 21:44 CHANGES" nifedipine Allergy Severe "EKG Verified 06/13/18 21:44 CHANGES" nimodipine Allergy Severe Anaphylaxis Verified 06/13/18 21:44 potassium iodide Allergy Severe Anaphylaxis Verified 06/13/18 21:44 povidone-iodine Allergy Severe Anaphylaxis Verified 06/13/18 21:44 prochlorperazine Allergy Severe SHAKES Verified 06/13/18 21:44 promethazine Allergy Severe Anaphylaxis Verified 06/13/18 21:44 protease Allergy Severe RASH/SHOB Verified 06/13/18 21:44 sodium iodide Allergy Severe Anaphylaxis Verified 06/13/18 21:44 sodium iodide Allergy Severe Anaphylaxis Verified 06/13/18 21:44 verapamil Allergy Severe "EKG Verified 06/13/18 21:44 CHANGES" Fvsakjj-Mlc-Abd Reductase Allergy Intermediate RHABDO Verified 02/27/18 18:52 Inhibitor NUTRASWEET Allergy Severe Headache Uncoded 06/13/18 21:44 LICORICE Allergy Anaphylaxis Uncoded 06/13/18 21:44 Review of Systems All other systems reviewed negative except as stated in HPI Physical Exam Vital signs: Vital Signs 10/12/18 16:00 10/12/18 20:00 10/13/18 00:00 Temperature 98.3 F 98.0 F 97.9 F Pulse Rate 66 74 68 Respiratory Rate 16 16 16 Blood Pressure 122/59 L 121/62 124/68 Pulse Oximetry 96 94 L 95 10/13/18 03:50 10/13/18 08:00 Temperature 98.2 F 98.5 F Pulse Rate 63 69 Respiratory Rate 17 16 Blood Pressure 138/69 135/66 Pulse Oximetry 95 93 L Intake & Output 10/12/18 10/13/18 10/13/18 18:59 06:59 18:59 Intake Total 1200 / 1200 Balance 1200 / 1200 Intake: Oral 1200 / 1200 Other: # Voids 3 # Incontinent Voids 1 Date of Last Bowel Movement 10/11/18 10/11/18 10/11/18 Narrative: GENERAL: in NAD, SKIN: Warm and dry. HEAD: Atraumatic. Normocephalic. EYES: Pupils equal and round. No scleral icterus. ENT: No nasal bleeding or discharge. NECK: Trachea midline. No JVD. CARDIOVASCULAR: Regular rate and rhythm. RESPIRATORY: No accessory muscle use. GASTROINTESTINAL: Abdomen soft, non-tender, nondistended. NEUROLOGICAL: Awake alert oriented x3, extraocular was intact no facial asymmetry tongue midline neck supple strength 5 out of 5 upper extremities left lower extremity mild hip flexion weakness but able raise it to gravity right lower extremity amputation PSYCHIATRIC: Appropriate mood and affect; insight and judgment normal. - Constitutional no acute distress - Routine HEENT Exam Head: Present: normocephalic Eye: Present: EOMI Objective Laboratory Results - last 24 hr 10/12/18 09:30 Nasal Screen MRSA (PCR) Not detected Review/Management - Diagnosis (1) Migraines Code(s): G43.909 - Migraine, unspecified, not intractable, without status migrainosus Status: Resolved Current Visit: Yes (2) Chronic pain disorder Code(s): G89.4 - Chronic pain syndrome Status: Acute Current Visit: Yes (3) Seizures Code(s): R56.9 - Unspecified convulsions Status: Acute Current Visit: Yes (4) Anxiety Code(s): F41.9 - Anxiety disorder, unspecified Status: Acute Current Visit: Yes (5) Depression Code(s): F32.9 - Major depressive disorder, single episode, unspecified Status : Acute Current Visit: Yes (6) Chronic arterial ischemic stroke Code(s): I69.30 - Unspecified sequelae of cerebral infarction Status: Acute Current Visit: Yes - Review/Management Plan: mri negative for acute stroke or ICH old stroke intractable migraines and pain syndrome recs Neurologically stable. She is ready to go home today DC Trileptal In the future look at getting her off Keppra and Vimpat possibly. She is on Dilantin, Vimpat, gabapentin, Keppra, Topamax Oral anticoagulation to be continued from neurologic standpoint can be dc'd and f/u outpatient; has appointment scheduled has a tendency for narcotics; would avoid them outpatient botox at out office (1) Migraines Qualifiers: Migraine type: with aura
--- NOTE | 2018-10-13 14:03 | P.DS ---
Date of admission: 10/11/18 21:41 Primary care physician: Umesh Barrett DO Attending physician on discharge: Devon Hackett Anticipated date of discharge: 10/13/18 Brief History from admission: Fall. DS: Diagnosis - Discharge Diagnosis (1) Hip pain, right Status: Acute DS: Medications - Discharge Medications Prescriptions: hydrocodone-acetaminophen 1 tab PO Q8H PRN 3 Days #9 tab PRN Reason: Acute Pain DS: Summary Hospital Course: [place]: This is a 68-year-old female who sustained a mechanical fall. She fell while transferring herself from the toilet. She fell onto her right side. INJURIES: RIGHT basial ganglia hyperdensity PMHx; Anemia. Asthma. Migraines. CDiff. CAD. Afib/SVT. CHF. COPD. PE & DVT (has filter). 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 Gastroparesis. R AKA. HTN. Hypothyroid. MRSA. Pancreatitis. Seizures. Ilcers. Procedures: Consults: Neurosurgery. Neurology. Hospitalist. Case management. The patient is now tolerating a po diet. Eating and drinking well. Pain is being managed well with PO pain medications, and patient is being a provided with a script for pain meds upon discharge. [This patient will be prescribed narcotic pain medications due to his traumatic injuries. The patient has a normal physiological response to severe traumatic injuries and surgery. He will need acute pain management with prescribed narcotic treatment. The [employer] prescription drug monitoring program database has been queried.] (NO driving while taking narcotic pain medication enforced to patient.) We have recommended to patient to continue with stool softeners while taking narcotic pain medications to prevent constipation. Pt has been participating in PT and OT while admitted at [facility] and has been ambulating with their assistance and independently. PT recommends [facility] PT. Vmug-tr-cyqp completed. DME ordered. All follow up appointments have been provided and discussed with the patient. It is recommended that the patient keeps all his follow up appointments for continued recovery. Patient's condition and plan of care discussed with collaborating trauma surgeon. He is agreeable to plan for discharge today. Therefore, the patient is stable to be safely discharged home from a trauma surgery standpoint. Thank you for allowing us to participate in his care. We wish Melisa the best in his recovery. RIGHT basial ganglia hyperdensity Migraines Neurosurgery consulted and assisting in management and care Neurology consulted and assisting in management and care Supportive care MRI brain - no acute hemorrhage. MRA brain - NEG CT brain for any change in neurological status Pain management Encourage out of bed PT ordered Resumed home medications -Topamax Neurology has cleared the patient for discharge Neurosurgery is cleared the patient for discharge Right hip pain Supportive care Pain management Right hip negative for fracture Encourage out of bed PT ordered Bowel regimen Anemia. Asthma. Migraines. CDiff. CAD. Afib/SVT. CHF. COPD. PE & DVT (has filter). 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 Gastroapresis. R AKA. HTN. Hypothyroid. MRSA. Pancreatitis. Seizures. Ulcers. Hospitalist consulted for assistance in medical management Home medications resumed Vital signs every 4 hours and as needed - Time Spent with Patient Total time spent providing and/or coordinating discharge services: Greater than 30 minutes - Quality: VTE Deep Vein Thrombosis/Pulmonary Embolism Present on Admission: No Exam Vital signs: Vital Signs 10/12/18 16:00 10/12/18 20:00 10/13/18 00:00 Temperature 98.3 F 98.0 F 97.9 F Pulse Rate 66 74 68 Respiratory Rate 16 16 16 Blood Pressure 122/59 L 121/62 124/68 Pulse Oximetry 96 94 L 95 10/13/18 03:50 10/13/18 08:00 10/13/18 12:00 Temperature 98.2 F 98.5 F 99.2 F Pulse Rate 63 69 70 Respiratory Rate 17 16 16 Blood Pressure 138/69 135/66 163/79 H Pulse Oximetry 95 93 L 16 L Intake & Output 10/12/18 10/13/18 10/13/18 18:59 06:59 18:59 Intake Total 1200 / 1200 Balance 1200 / 1200 Intake: Oral 1200 / 1200 Other: # Voids 3 # Incontinent Voids 1 Date of Last Bowel Movement 10/11/18 10/11/18 10/11/18 Narrative: GENERAL: This is a 68-year-old female who looks much older than stated age. Tearful. SKIN: Warm and dry. HEAD: Atraumatic. Normocephalic. EYES: PERRLA ENT: No nasal bleeding or discharge. Mucous membranes pink and moist. NECK: Trachea midline. No JVD. CARDIOVASCULAR: Regular rate and rhythm. RESPIRATORY: No accessory muscle use. Lungs are clear to auscultation. Breath sounds equal bilaterally. No distress or dyspnea. GASTROINTESTINAL: BS + x 4 quads. Abdomen soft, non-tender, nondistended. MUSCULOSKELETAL: Extremities without cyanosis, or edema. Large hematoma noted to right outer thigh/hip. Right AKA noted. + peripheral pulses x 4 extremities. Warm with good capillary refill and sensation. MAEW. NEUROLOGICAL: Awake and alert. Normal speech and pattern. Results Procedures completed during hospitalization: . - Impressions ITS Impressions Head CT 10/11/18 18:21 CONCLUSION: 1. Solitary new punctate hyperdensity in the right basal ganglia may represent focal hemorrhage. Recommend follow-up scans. 2. Otherwise, stable CT brain. . Hip CT 10/11/18 18:51 CONCLUSION: 1. Vjknq-aue-bayr amputation right lower extremity. 2. No evidence of acute fracture. Head MRI 10/11/18 20:28 CONCLUSION: 1. No evidence of acute hemorrhage or cerebral edema. 2. No evidence of acute infarction. 3. 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 Head MRA 10/11/18 20:28 CONCLUSION: 1. Negative MRA of the [place] [facility]. Discharge Plan - Discharge Disposition Patient Disposition: 01 Discharge Home - Discharge Condition Condition: Stable - Discharge Order Discharge Orders: Discharge Order (Routine); Ordered 10/13/18 Ordered By: Nicole Johnson - Discharge Details Anticipated Discharge Date: 10/13/18 - Physicians Team Primary Care Provider: Umesh Barrett Attending Provider: Justin Pastor Other Providers: Omid Garcia MD ; Justin Pastor MD ; Zhang Hughes MD ; [employer] ; Bipin Pabon MD ; Nicole Johnson ARNP ; Devon Hackett MD ; Mecca Jaramillo MD ; Manjit Cao ARNP ; Charlene Casarez MD ; Umesh Barrett, DO ; Albino Mancera MD
== END 2018-10-13 13:46 | disposition home or self-care (01) ==
LOC: NEPC 17:41 → INTOOBSV 20:20 → NEDA 20:20 → NEPFCDU 10-12 00:15
PROVIDERS: ADMIT Surgery; ATTEND Surgery